=== PATIENT | male | born 1945 | race Caucasian/White ===

== ENCOUNTER → 2016-03-02 | Outpatient (CLI) | payer BC ==
[~2016-03-02] MED LIST: CLB/200 PO; IBUP-1050 PO; IBUP200C9 PO; MULTTAB PO; OXYC1TAB3 PO
== END | disposition home or self-care (01) ==
LOC: C.RDSM 14:35
PROVIDERS: ATTEND Physical Medicine & Rehabilitation Sports Medicine
DX: S42.009A Fracture of unspecified part of unspecified clavicle, initial encounter for closed fracture (principal); X58.XXXA Exposure to other specified factors, initial encounter

== ENCOUNTER 2023-09-02 13:11 | Inpatient (IN) ==
--- NOTE | 2023-09-02 13:45 | ED Triage Note ---
Date of Service September 02, 2023 Provider in Triage Author: Trung Arzate. History of Present Illness This patient was briefly evaluated while in triage. An abbreviated physical exam was performed. This patient is a 78-year-old Male who presents to the ED for evaluation of Right upper chest pain and right upper back pain. Diagnosed with R sided PE after traveling back from [place]. Was not admitted in [place] and was placed on eliquis. Thought he had a fever last night. took tylenol and woke up in a sweat. cough is getting worse, possibly colored now. Pain in chest with cough. Physical Exam CONSTITUTIONAL: appears in pain when coughing or deep inspiration SKIN: pink, warm, dry CARDIAC: regular rate and rhythm RESPIRATORY: muffles lung sounds on R upper region. cough intermittently Initial orders for labs and / or imaging were placed and patient was placed in the waiting area until a bed is available. Please see further documentation for the full ED course.
--- NOTE | 2023-09-02 14:02 | XRay Report ---
XR chest 1V not portable CLINICAL HISTORY: cough, dyspnea, R upper CP, hx PE TECHNIQUE: Single frontal radiograph of the chest was obtained. Comparison: Comparison is made to rib series 11/28/2015 FINDINGS: No lines and tubes are seen. The cardiomediastinal silhouette is normal. The lungs are clear. No evid ence of pleural effusion or pneumothorax. IMPRESSION: No acute chest disease. ACT 112: Negative or not required by law. Electronically signed by: Emory Vivar M.D. 09/02/2023 2:00 PM
[2023-09-02 14:21] LABS: Basophils # (auto) 0.05 K/uL (0.00-0.20); Basophils % (auto) 0.7 %; Eosinophils # (auto) 0.51 K/uL (0.00-0.50); Eosinophils % (auto) 7.6 %; Hematocrit (blood only) 40.5 % (42.0-52.0); Hemoglobin 13.8 g/dl (14.0-18.0); Immature Granulocytes # (auto) 0.05 K/uL (0.01-0.20); Immature Granulocytes % (auto) 0.7 %; Lymphocytes % (auto) 22.4 %; Mean Corpuscular Hemoglobin 30.1 pg (25.0-34.0); Mean Corpuscular Hgb Conc 34.1 g/dL (32.0-36.0); Mean Corpuscular Volume 88.2 fL (80.0-100.0); Mean Platelet Volume 9.4 fL (9.4-12.4); Monocytes # (auto) 0.87 K/uL (0.11-0.59); Neutrophils # (auto) 3.73 K/uL (1.40-6.50); Neutrophils % (auto) 55.6 %; Platelet Count 326 K/uL (130-400); RDW Standard Deviation 38.9 fL (36.4-46.3); Red Blood Count 4.59 M/uL (4.70-6.10); White Blood Count 6.71 K/ul (4.8-10.8)
[2023-09-02 14:43] LABS: Albumin Globulin Ratio 1.2 (0.9-2); BUN Creatinine Ratio 20.7 (10-20); Bilirubin,Total 0.6 mg/dl (0.2-1.0); Calcium 9.3 mg/dl (8.6-10.3); Creatinine Clr Calc Pharmacy 79.4 ml/min; Est GFR (African American) 93.3 ml/min; Est GFR (Non-African American) 80.5 ml/min; Globulin 3.3 gm/dl (2.5-4.0); Potassium 4.7 mmol/L (3.5-5.1); Total Protein 7.3 gm/dl (6.0-8.3)
[2023-09-02 14:47] LABS: Troponin I High Sensitivity 2.8 pg/ml (0-20)
[2023-09-02 15:04] LABS: INR 1.1 (0.9-1.1); Partial Thromboplastin Ratio 1.2; Partial Thromboplastin Time 31 Seconds (21-31); Prothrombin Time 11.6 Seconds (9.0-12.0)
[2023-09-02] MEDS: ONDANSETRON INJ 2 MG/ML 2 ML VIAL IV STA (15:04)
--- NOTE | 2023-09-02 15:04 | Emergency Department Note ---
Impression & Plan Right-sided chest pain, Pulmonary emboli, Pulmonary infarct, Failure of outpatient treatment ED Provider Note NAME: ABDOUL DE OLIVEIRA AGE: 78 SEX: M : 1945 ARRIVES VIA: Walk-In INFORMANT: [Patient] ED PROVIDER(S): [David Osorio MD] CHIEF COMPLAINT: Shortness of breath, shoulder pain HISTORY OF PRESENT ILLNESS: The patient is a 78-year-old male who has felt some right sided chest pain and some difficulty taking a breath since before 21 August. He was in [place]. When he returned, he went to an ER in [place] and they diagnosed him with a pulmonary embolus, he was placed on Eliquis. He was not hospitalized. The patient states that he actually feels worse than he did when he was in [place]. He has more pain in the area of the right chest and right shoulder. He states that it hurts quite a bit when he coughs. It hurts a bit to take a deep breath and he feels he cannot get a full breath. Last night, the patient had what he thought was a fever, he woke up sweating. There has been no trauma to the chest, he has no abdominal pain. He is taking his Eliquis as prescribed. PMHx/PSHx/Social Hx: See Below PHYSICAL EXAM: GENERAL: Patient is in no acute distress. HEENT: No acute trauma, normocephalic atraumatic, mucous membranes moist, no nasal congestion. NECK: No stridor, no adenopathy, no meningismus, trachea is midline. LUNGS: Clear to auscultation bilaterally, no wheeze, no rhonchi, breath sounds equal. HEART: Without murmurs gallops or rubs, regular rate and rhythm. ABDOMEN: Soft, nontender, no peritonitis. EXTREMITIES: No cyanosis, full range of motion of all the joints without pain or difficulty. NEUROLOGIC: Oriented x 3, no acute motor or sensory deficits, no focal weakness. SKIN: No jaundice, no diaphoresis. DIFFERENTIAL DIAGNOSIS: PE, pulmonary infarct, pneumonia, musculoskeletal pain, pleurisy, among others. EMERGENCY DEPARTMENT PROCEDURES: MEDICAL DECISION MAKING: There is no leukocytosis. A very subtle anemia was seen. There is a normal platelet count. No coagulopathy. No renal failure or significant electrolyte abnormality. No concerning liver enzyme elevation. BNP is not elevated making CHF less likely. ECG shows a normal sinus rhythm, no obvious ST elevation. Cardiac enzyme testing x 1 is not consistent with acute cardiac injury. Chest x-ray does not show mediastinal widening, pneumonia or pneumothorax. Chest CT shows multiple right-sided pulmonary emboli with some pulmonary infarcts and potential early pneumonia. On exam, the patient was not hypoxic. He did have right-sided chest pain with any cough or with a deep breath. Patient received IV morphine for pain, IV Zofran for nausea. He was placed on IV heparin drip. The patient presents with worsening right-sided chest pain despite Eliquis. He had been diagnosed with a PE and was treated outpatient. Things appear to be worsening, his CT imaging suggests pulmonary infarcts, multiple PEs and potentially, early infection. Given the circumstances, admission is warranted. I spoke with the patient and case management. The on-call hospitalist was consulted. Prior/Outside records/notes reviewed: None ECG per my interpretation: Indication was chest pain. The ECG shows a normal sinus rhythm with a rate of 83. There is no ST elevation, no PVCs. The QTc is 425. Continuous Cardiac Monitoring per my interpretation: An order was placed for continuous cardiac monitoring. The monitor shows a rate of 77 with normal sinus rhythm. Imaging/x-ray results per my interpretation: Chest x-ray does not show mediastinal widening, pneumonia or pneumothorax. Chronic Medical/Social conditions affecting care: Advanced age. Care/Management discussed with: Case management, the on-call hospitalist. Level of care consideration(s): After review of the information above and other included data: --I believe the patient requires escalation of care to admission Critical Care Note: I have personally spent 42 minutes of critical care time in the direct management of this patient. This includes bedside care, interpretation of diagnostic studies, and testing, discussion with consultants, patient, and family members, and other required patient management activities. This 42 minutes is in excess of all separately billable procedures. DISPOSITION: Admission Past Med/Surg History Problem List (Updated 09/02/23 @ 18:38 by David Osorio MD) Failure of outpatient treatment (Acute) Pulmonary infarct (Acute) Pulmonary emboli (Acute) Right-sided chest pain (Acute) Pulmonary embolism and infarction Right pulmonary embolus Inflammatory polyarthritis Dyslipidemia BPH (benign prostatic hyperplasia) Allergic rhinitis Medical History Basal cell carcinoma of skin Melanoma s/p resection, Keytruda 06/10-09/09 Surgical History (Updated 09/02/23 @ 16:54 by Sherly Cutler PA-C) History of inguinal hernia repair History of cataract surgery History of melanoma excision Family History (Updated 09/02/23 @ 16:54 by Sherly Cutler PA-C) Other Cancer Diabetes Stroke Denies family history of Clotting disorder Social History Smoking Status: Never smoker Preferred Language: Dominican Feels Safe at Home: Yes Allergies Allergies Allergy/AdvReac Type Severity Reaction Status Date / Time No Known Allergies Allergy Unverified 09/02/23 16:29 Home Meds Home Medications Medication Instructions Recorded Confirmed acetaminophen 500 mg tablet 500 mg PO Q6H PRN Pain/Fever 09/02/23 09/02/23 apixaban 5 mg tablet (Eliquis) 5 mg PO BID 09/02/23 09/02/23 celecoxib 200 mg capsule 200 mg PO DAILY 09/02/23 09/02/23 pseudoephedrine-ibuprofen 30 1 tab PO Q4H PRN Sick 09/02/23 09/02/23 mg-200 mg tablet rosuvastatin 10 mg tablet 10 mg PO QAM 09/02/23 09/02/23 tamsulosin 0.4 mg capsule 0.4 mg PO DAILY 09/02/23 09/02/23 Results & Data (ED) Vital Signs Vital Signs - 24 hr 09/02/23 13:35 09/02/23 14:10 09/02/23 14:14 Temperature 36.4 C L Temperature Source Temporal Artery Scan Pulse Rate 85 77 Pulse Rate [Apical] Respiratory Rate 18 Respiratory Effort / Characteristics Non-Labored Respiratory Depth Normal Respiratory Pattern Regular Blood Pressure 116/72 Blood Pressure [Right Arm] Blood Pressure Mean 86 Blood Pressure Mean [Right Arm] Pulse Oximetry 96 96 Oxygen Delivery Method Room Air Room Air Sepsis Recent Fever Within 48 Hours No Sepsis New/Unexplained Change in Mental Status N/A Sepsis Action Taken by Nursing No Action Required 09/02/23 15:10 09/02/23 15:43 Temperature Temperature Source Pulse Rate Pulse Rate [Apical] 70 Respiratory Rate 18 Respiratory Effort / Characteristics Respiratory Depth Respiratory Pattern Blood Pressure Blood Pressure [Right Arm] 129/68 Blood Pressure Mean Blood Pressure Mean [Right Arm] 88 Pulse Oximetry 93 Oxygen Delivery Method Room Air Room Air Sepsis Recent Fever Within 48 Hours Sepsis New/Unexplained Change in Mental Status Sepsis Action Taken by Long-Term Medications Current Medication List: was personally reviewed by me Laboratory Data Attestation: I reviewed the patient's lab results. 09/02/23 14:00 09/02/23 14:00 Lab Results 09/02/23 Range/Units 14:00 WBC 6.71 (4.8-10.8) K/ul RBC 4.59 L (4.70-6.10) M/uL Hgb 13.8 L (14.0-18.0) g/dl Hct 40.5 L (42.0-52.0) % MCV 88.2 (80.0-100.0) fL MCH 30.1 (25.0-34.0) pg MCHC 34.1 (32.0-36.0) g/dL RDW Std Deviation 38.9 (36.4-46.3) fL RDW Coeff of Hardy 12.0 (11.5-14.5) % Plt Count 326 (130-400) K/uL MPV 9.4 (9.4-12.4) fL Immature Gran % (Auto) 0.7 % Neut % (Auto) 55.6 % Lymph % (Auto) 22.4 % [place] % (Auto) 13.0 % Eos % (Auto) 7.6 % Baso % (Auto) 0.7 % Neut # (Auto) 3.73 (1.40-6.50) K/uL Lymph # (Auto) 1.50 (1.20-3.40) K/uL [place] # (Auto) 0.87 H (0.11-0.59) K/uL Eos # (Auto) 0.51 H (0.00-0.50) K/uL Baso # (Auto) 0.05 (0.00-0.20) K/uL Immature Gran # (Auto) 0.05 (0.01-0.20) K/uL PT 11.6 (9.0-12.0) Seconds INR 1.1 (0.9-1.1) APTT 31 (21-31) Seconds PTT Ratio 1.2 Sodium 139 (136-145) mmol/L Potassium 4.7 (3.5-5.1) mmol/L Chloride 103 (98-107) mmol/L Carbon Dioxide 30 (21-32) mmol/L Anion Gap 6 (3-11) BUN 19 (6-23) mg/dl Creatinine 0.92 (0.6-1.4) mg/dl Est Cr Clr Drug Dosing 79.4 ml/min Est GFR ( Amer) 93.3 ml/min Est GFR (Non-Af Amer) 80.5 ml/min BUN/Creatinine Ratio 20.7 H (10-20) Glucose 110 H (70-99(Fasting)) mg/dl Calcium 9.3 (8.6-10.3) mg/dl Total Bilirubin 0.6 (0.2-1.0) mg/dl AST 27 (13-39) U/L ALT 27 (7-52) U/L Alkaline Phosphatase 85 (34-104) U/L Troponin I High Sens 2.8 (0-20) pg/ml B-Natriuretic Peptide 48 (0-100) pg/ml Total Protein 7.3 (6.0-8.3) gm/dl Albumin 4.0 (3.4-5.0) gm/dl Globulin 3.3 (2.5-4.0) gm/dl Albumin/Globulin Ratio 1.2 (0.9-2) Procalcitonin 0.05 (0-0.5) ng/ml Administered Medications Heparin Sodium/Dextrose (Heparin Sodium/Dextrose) 25,000 units in 500 mls @ 30 mls/hr IV .[id number] [facility]; Protocol Stop: 10/02/23 16:29 Last Admin: 09/02/23 17:27 Dose: 1,500 units/hr, 30 mls/hr Documented By: HAO Co-signed By: FERMÍN Discontinued Medications Heparin Sodium/Dextrose (Heparin Iv Adult Wt-Based Standard *No* Initial Bolus Protocol) 1 each IV ONE STA; Protocol Stop: 09/02/23 16:05 Last Admin: 09/02/23 17:28 Dose: 1 each Documented By: HAO Levofloxacin/Dextrose (Levaquin/D5w) 500 mg in 100 mls @ 100 mls/hr IV ONE STA; Protocol Stop: 09/02/23 18:30 Last Infusion: 09/02/23 20:06 Dose: Infused Documented By: Admin: 09/02/23 18:03 Dose: 100 mls/hr Documented By: HAO Ioversol (Optiray 320 125ml) 120 ml IV ONCE ONE Stop: 09/02/23 15:29 Last Admin: 09/02/23 15:29 Dose: 120 ml Documented By: KIKO Morphine Sulfate (Morphine Sulfate 4 Mg/Ml 1 Ml Carp\Vial) 4 mg IV NOW STA Stop: 09/02/23 14:59 Last Admin: 09/02/23 15:05 Dose: 4 mg Documented By: DORINDAB Morphine Sulfate (Morphine Sulfate 4 Mg/Ml 1 Ml Carp\Vial) 4 mg IV NOW STA Stop: 09/02/23 18:15 Last Admin: 09/02/23 18:36 Dose: 4 mg Documented By: HAO Ondansetron HCl (Ondansetron Inj 2 Mg/Ml 2 Ml Vial) 4 mg IV NOW STA Stop: 09/02/23 14:59 Last Admin: 09/02/23 15:04 Dose: 4 mg Documented By: JOHN Imaging Data Radiologist's Impression: Chest CTA 09/02/23 13:37 CT ANGIOGRAPHY OF THE CHEST, PULMONARY EMBOLUS PROTOCOL CLINICAL HISTORY: Recent R PE, worsening R back pain, fever COMPARISON STUDY: Chest CT November 28, 2015. Chest radiograph performed earlier today. TECHNIQUE: Following IV administration of 120 mL of Optiray, helical axial images of the chest were obtained utilizing the pulmonary embolus protocol. Maximal intensity projections and sagittal and coronal reformats were viewed on an independent 3D workstation. IV contrast was administered without complication. Automated exposure control was utilized for the study. A dose lowering technique was utilized adhering to the principles of ALARA. CT DOSE: 831.22 mGy.cm FINDINGS: There are several lobar and segmental right-sided pulmonary emboli. A small right pleural effusion is present. There is no CT evidence for right heart strain. A 2.9 cm subpleural right lower lobe opacity on image 49 of 223 represents a pulmonary infarct. There is also a subpleural 2.3 cm groundglass right apical opacity on image 201. There is mild right infrahilar soft tissue thickening. This is of questionable significance. Several subpleural left lower lobe nodules measure up to 7 mm. These are new since CT of November 28, 2015. There is no thoracic aortic dissection. There is no pericardial effusion. Hypodense hepatic lesions represent cysts. IMPRESSION: 1. Several lobar and segmental right-sided pulmonary emboli. 2.9 cm subpleural right lower lobe opacity consistent with a pulmonary infarct. Small right pleural effusion. 2. Subpleural 2.3 cm right apical groundglass opacity could reflect an additional pulmonary infarct., A focus of pneumonia could appear similar. A follow-up chest CT in 3 months to ensure resolution is recommended. 3. Several indeterminate subcentimeter left lower lobe pulmonary nodules measuring up to 7 mm. These are new since CT of November 28, 2015. These should be assessed on follow-up CT to ensure stability. ACT 112: Positive. There are findings on this exam that require communication between the performing entity and the patient following Patient Test Result Information Act ([place] Act 112) guidelines. Electronically signed by: Corby Philip M.D. 09/02/2023 3:56 PM Chest X-Ray 09/02/23 13:37 XR chest 1V not portable CLINICAL HISTORY: cough, dyspnea, R upper CP, hx PE TECHNIQUE: Single frontal radiograph of the chest was obtained. Comparison: Comparison is made to rib series 11/28/2015 FINDINGS: No lines and tubes are seen. The cardiomediastinal silhouette is normal. The lungs are clear. No evidence of pleural effusion or pneumothorax. IMPRESSION: No acute chest disease. ACT 112: Negative or not required by law. Electronically signed by: Emory Vivar M.D. 09/02/2023 2:00 PM Discharge Plan Visit Data Chief Complaint: Shortness of Breath/Dyspnea Stated Complaint: SOB, BLOOD CLOT IN RT LUNG ED Provider: David Osorio Discharge Problem: Right-sided chest pain, Pulmonary emboli, Pulmonary infarct, Failure of outpatient treatment Patient Disposition: Admitted As Inpatient Condition: Fair Discharge Instructions Interventions: ED Discharge Assessment Last Done: 09/02/23 20:12 Discharge Problem: Pulmonary emboli Qualifiers: Pulmonary embolism type: unspecified Chronicity: acute Acute cor pulmonale presence: unspecified Qualified Code(s): I26.99 - Other pulmonary embolism without acute cor pulmonale
[2023-09-02] MEDS: MoRPHine SULFATE 4 MG/ML 1 ML CARP\\VIAL IV STA ×2 (15:05→18:36)
[2023-09-02] MEDS: OPTIRAY 320 125ml IV ONE (15:29)
--- NOTE | 2023-09-02 15:59 | CT Scan Report ---
CT ANGIOGRAPHY OF THE CHEST, PULMONARY EMBOLUS PROTOCOL CLINICAL HISTORY: Recent R PE, worsening R back pain, fever COMPARISON STUDY: Chest CT November 28, 2015. Chest radiograph performed earlier today. TECHNIQUE: Following IV administration of 120 mL of Optiray, helical axial images of the chest were o btained utilizing the pulmonary embolus protocol. Maximal intensity projections and sagittal and cor onal reformats were viewed on an independent 3D workstation. IV contrast was administered without co mplication. Automated exposure control was utilized for the study. A dose lowering technique was ut ilized adhering to the principles of ALARA. CT DOSE: 831.22 mGy.cm FINDINGS: There are several lobar and segmental right-sided pulmonary emboli. A small right pleural effusion is present. There is no CT evidence for right heart strain. A 2.9 cm subpleural right lower lobe opacity on image 49 of 223 represents a pulmonary infarct. There is also a subpleural 2.3 cm bushra undglass right apical opacity on image 201. There is mild right infrahilar soft tissue thickening. Th is is of questionable significance. Several subpleural left lower lobe nodules measure up to 7 mm. Th chauncey are new since CT of November 28, 2015. There is no thoracic aortic dissection. There is no pericar dial effusion. Hypodense hepatic lesions represent cysts. IMPRESSION: 1. Several lobar and segmental right-sided pulmonary emboli. 2.9 cm subpleural right lower lobe opaci ty consistent with a pulmonary infarct. Small right pleural effusion. 2. Subpleural 2.3 cm right apical groundglass opacity could reflect an additional pulmonary infarct., A focus of pneumonia could appear similar. A follow-up chest CT in 3 months to ensure resolution is recommended. 3. Several indeterminate subcentimeter left lower lobe pulmonary nodules measuring up to 7 mm. These are new since CT of November 28, 2015. These should be assessed on follow-up CT to ensure stability. ACT 112: Positive. There are findings on this exam that require communication between the performing entity and the patient following Patient Test Result Information Act ([place] Act 112) guidelines. Electronically signed by: Corby Philip M.D. 09/02/2023 3:56 PM
--- NOTE | 2023-09-02 16:23 | History & Physical Report ---
Date of Service September 02, 2023 Assessment & Plan (1) Pulmonary embolism and infarction: Plan: This is a 78 y/o male with history of inflammatory polyarthritis, GERD, BPH, malignant melanoma s/p Keytruda, dyslipidemia, and other history as outlined below who presents to the ED with worsening right chest pain in the setting of recently diagnosed PE. He was started on Eliquis when he was diagnosed with right-sided PE on 08/22/23. However, since starting this medication, he has not noted significant improvement but rather is now worsening over the last 2-3 days with increasing pain, cough, and subjective fever. Work-up in the ED reveals progression of clot with new pulmonary infarct. - Admit to PCU - Heparin gtt started in the ED - will continue - Not currently hypoxic but monitor Pulsox closely - Consult pulmonology for additional recommendations - Scheduled for hem/onc f/u in Oct with Dr. Ndiaye due to hx of melanoma but may need hematologic evaluation sooner - Empiric antibiotic coverage for pneumonia with levofloxacin - Urine legionella, BioFire respiratory panel in view of recent travel - Check ECHO to rule out right heart strain - Incentive spirometry, flutter valve (2) Inflammatory polyarthritis: Plan: Chronic, follows with rheumatology (3) Dyslipidemia: Plan: Chronic, stable Continue statin (4) BPH (benign prostatic hyperplasia): Plan: Chronic, stable Continue tamsulosin Plan Pt seen and reviewed with collaborating physician, Dr. Pascual. Plan of care discussed and as outlined above. Code status: Full code DVT Prophylaxis: on heparin gtt Admit to PCU Joseph Cutler PA-C History of Present Illness Chief Complaint: worsening chest pain Primary Care Provider: Keisha Grossman MD This is a 78 y/o male with history of inflammatory polyarthritis, GERD, BPH, malignant melanoma s/p Keytruda, dyslipidemia, and other history as outlined below who presents to the ED with worsening right chest pain in the setting of recently diagnosed PE. Pt recently traveled to [place] for the month of July on vacation. While he was there, he developed right sided chest pain that gradually worsened with associated difficulty with deep breathing. When he returned through [place], he was seen in the ED at [facility] and had a CT t hat showed right sided PE (see CT below) and was discharged on Eliquis. Since starting Eliquis, pt has not noted any significant improvement in the symptoms, but rather over the past two days, the right chest pain has worsened and is radiating to the right scapula. The pain is particularly severe with deep breathing, coughing, or sneezing. Last night, he woke up with a subjective fever, so he took two Tylenol and went back to sleep. This morning, he woke up soaked in sweat. He has also noted a worsening cough that is minimally productive, no significant hemoptysis. Depending on the position he is in, he may wake up gasping for breath. He denies prior history of blood clot. He reports LE duplex in the ED in [place] was negative for clot. From PCP Note 08/30/23: "Part way into vacation, he developed pain in his right side. Progressed to severe pain and difficulty with deep breathing. He flew back to [place] and was seen at [facility] emergency room on 08/22/23. CTA was performed and showed the followin. Right descending pulmonary artery embolus and central segmental branches. 2. Right lower lobe atelectasis and trace right pleural effusion. 3. Multiple left lower lobe pulmonary nodules. These measure 5 and 6 mm. Most significant: Left solid pulmonary nodule measuring 5 mm. Per Fleischner Society Guidelines, no routine follow-up imaging is recommended." Allergies Allergy/AdvReac Type Severity Reaction Status Date / Time No Known Allergies Allergy Unverified 09/02/23 16:29 Home Medications Medication Instructions Recorded Confirmed Type acetaminophen 500 mg tablet 500 mg PO Q6H PRN Pain/Fever 09/02/23 09/02/23 History apixaban 5 mg tablet (Eliquis) 5 mg PO BID 09/02/23 09/02/23 History celecoxib 200 mg capsule 200 mg PO DAILY 09/02/23 09/02/23 History pseudoephedrine-ibuprofen 30 1 tab PO Q4H PRN Sick 09/02/23 09/02/23 History mg-200 mg tablet rosuvastatin 10 mg tablet 10 mg PO QAM 09/02/23 09/02/23 History tamsulosin 0.4 mg capsule 0.4 mg PO DAILY 09/02/23 09/02/23 History Past Med/Surg History Problem List (Updated 09/02/23 @ 16:59 by Sherly Cutler PA-C) Pulmonary embolism and infarction Right pulmonary embolus Inflammatory polyarthritis Dyslipidemia BPH (benign prostatic hyperplasia) Allergic rhinitis Medical History (Updated 09/02/23 @ 16:59 by Sherly Cutler PA-C) Basal cell carcinoma of skin Melanoma s/p resection, Keytruda 06/10-09/09 Surgical History (Updated 09/02/23 @ 16:54 by Sherly Cutler PA-C) History of inguinal hernia repair History of cataract surgery History of melanoma excision Family History (Updated 09/02/23 @ 16:54 by Sherly Cutler PA-C) Other Cancer Diabetes Stroke Denies family history of Clotting disorder Social History Smoking Status: Never smoker Preferred Language: Nauruan Feels Safe at Home: Yes Review of Systems Review of Systems: All systems reviewed & are unremarkable except as noted in Subjective Physical Exam Physical Exam: General: awake, alert, NAD HEENT: no scleral icterus, moist oral mucosa Neck: supple, trachea midline Heart: RRR Lungs: diminished but clear bilaterally Abdomen: soft, NT, +BS Extremities: no pitting edema, distal pulses intact and equal Skin: warm, dry, no jaundice Neurologic: OX3, no confusion or dysarthria, moving all extremities, no focal deficits Results & Data Results & Data Vital Signs (Past 12 Hours) Vital Signs Temp Pulse Pulse Resp BP BP Pulse Ox 09/02/23 15:43 09/02/23 15:10 70 18 129/68 93 09/02/23 14:14 77 09/02/23 14:10 96 09/02/23 13:35 36.4 C L 85 18 116/72 96 O2 Del Method 09/02/23 15:43 Room Air 09/02/23 15:10 Room Air 09/02/23 14:14 09/02/23 14:10 Room Air 09/02/23 13:35 Room Air Laboratory Results Lab Results 09/02/23 Range/Units 14:00 WBC 6.71 (4.8-10.8) K/ul RBC 4.59 L (4.70-6.10) M/uL Hgb 13.8 L (14.0-18.0) g/dl Hct 40.5 L (42.0-52.0) % MCV 88.2 (80.0-100.0) fL MCH 30.1 (25.0-34.0) pg MCHC 34.1 (32.0-36.0) g/dL RDW Std Deviation 38.9 (36.4-46.3) fL RDW Coeff of Hardy 12.0 (11.5-14.5) % Plt Count 326 (130-400) K/uL MPV 9.4 (9.4-12.4) fL Immature Gran % (Auto) 0.7 % Neut % (Auto) 55.6 % Lymph % (Auto) 22.4 % [place] % (Auto) 13.0 % Eos % (Auto) 7.6 % Baso % (Auto) 0.7 % Neut # (Auto) 3.73 (1.40-6.50) K/uL Lymph # (Auto) 1.50 (1.20-3.40) K/uL [place] # (Auto) 0.87 H (0.11-0.59) K/uL Eos # (Auto) 0.51 H (0.00-0.50) K/uL Baso # (Auto) 0.05 (0.00-0.20) K/uL Immature Gran # (Auto) 0.05 (0.01-0.20) K/uL PT 11.6 (9.0-12.0) Seconds INR 1.1 (0.9-1.1) APTT 31 (21-31) Seconds PTT Ratio 1.2 Sodium 139 (136-145) mmol/L Potassium 4.7 (3.5-5.1) mmol/L Chloride 103 (98-107) mmol/L Carbon Dioxide 30 (21-32) mmol/L Anion Gap 6 (3-11) BUN 19 (6-23) mg/dl Creatinine 0.92 (0.6-1.4) mg/dl Est Cr Clr Drug Dosing 79.4 ml/min Est GFR ( Amer) 93.3 ml/min Est GFR (Non-Af Amer) 80.5 ml/min BUN/Creatinine Ratio 20.7 H (10-20) Glucose 110 H (70-99(Fasting)) mg/dl Calcium 9.3 (8.6-10.3) mg/dl Total Bilirubin 0.6 (0.2-1.0) mg/dl AST 27 (13-39) U/L ALT 27 (7-52) U/L Alkaline Phosphatase 85 (34-104) U/L Troponin I High Sens 2.8 (0-20) pg/ml B-Natriuretic Peptide 48 (0-100) pg/ml Total Protein 7.3 (6.0-8.3) gm/dl Albumin 4.0 (3.4-5.0) gm/dl Globulin 3.3 (2.5-4.0) gm/dl Albumin/Globulin Ratio 1.2 (0.9-2) Diagnostic Findings Chest CTA 09/02/23 13:37 CT ANGIOGRAPHY OF THE CHEST, PULMONARY EMBOLUS PROTOCOL CLINICAL HISTORY: Recent R PE, worsening R back pain, fever COMPARISON STUDY: Chest CT November 28, 2015. Chest radiograph performed earlier today. TECHNIQUE: Following IV administration of 120 mL of Optiray, helical axial images of the chest were obtained utilizing the pulmonary embolus protocol. Maximal intensity projections and sagittal and coronal reformats were viewed on an independent 3D workstation. IV contrast was administered without complication. Automated exposure control was utilized for the study. A dose lowering technique was utilized adhering to the principles of ALARA. CT DOSE: 831.22 mGy.cm FINDINGS: There are several lobar and segmental right-sided pulmonary emboli. A small right pleural effusion is present. There is no CT evidence for right heart strain. A 2.9 cm subpleural right lower lobe opacity on image 49 of 223 represents a pulmonary infarct. There is also a subpleural 2.3 cm groundglass right apical opacity on image 201. There is mild right infrahilar soft tissue thickening. This is of questionable significance. Several subpleural left lower lobe nodules measure up to 7 mm. These are new since CT of November 28, 2015. There is no thoracic aortic dissection. There is no pericardial effusion. Hypodense hepatic lesions represent cysts. IMPRESSION: 1. Several lobar and segmental right-sided pulmonary emboli. 2.9 cm subpleural right lower lobe opacity consistent with a pulmonary infarct. Small right pleural effusion. 2. Subpleural 2.3 cm right apical groundglass opacity could reflect an additional pulmonary infarct., A focus of pneumonia could appear similar. A follow-up chest CT in 3 months to ensure resolution is recommended. 3. Several indeterminate subcentimeter left lower lobe pulmonary nodules measuring up to 7 mm. These are new since CT of November 28, 2015. These should be assessed on follow-up CT to ensure stability. ACT 112: Positive. There are findings on this exam that require communication between the performing entity and the patient following Patient Test Result Information Act ([place] Act 112) guidelines. Electronically signed by: Corby Philip M.D. 09/02/2023 3:56 PM Chest X-Ray 09/02/23 13:37 XR chest 1V not portable CLINICAL HISTORY: cough, dyspnea, R upper CP, hx PE TECHNIQUE: Single frontal radiograph of the chest was obtained. Comparison: Comparison is made to rib series 11/28/2015 FINDINGS: No lines and tubes are seen. The cardiomediastinal silhouette is normal. The lungs are clear. No evidence of pleural effusion or pneumothorax. IMPRESSION: No acute chest disease. ACT 112: Negative or not required by law. Electronically signed by: Emory Vivar M.D. 09/02/2023 2:00 PM Medications Administered Discontinued Medications Ioversol (Optiray 320 125ml) 120 ml IV ONCE ONE Stop: 09/02/23 15:29 Last Admin: 09/02/23 15:29 Dose: 120 ml Documented By: KIKO Morphine Sulfate (Morphine Sulfate 4 Mg/Ml 1 Ml Carp\\Vial) 4 mg IV NOW STA Stop: 09/02/23 14:59 Last Admin: 09/02/23 15:05 Dose: 4 mg Documented By: NRB Ondansetron HCl (Ondansetron Inj 2 Mg/Ml 2 Ml Vial) 4 mg IV NOW STA Stop: 09/02/23 14:59 Last Admin: 09/02/23 15:04 Dose: 4 mg Documented By: NRB (4) BPH (benign prostatic hyperplasia) Lower urinary tract symptom presence: unspecified whether lower urinary tract symptoms present Qualified Code(s): N40.0 - Benign prostatic hyperplasia without lower urinary tract symptoms
[2023-09-02] MEDS: HEPARIN SODIUM/DEXTROSE 25,000 UNITS/500 ML BAG IV SCH (17:27)
[2023-09-02] MEDS: Heparin IV Adult Wt-Based Standard *NO* INITIAL Bolus Protocol IV STA (17:28)
[2023-09-02] MEDS: levoFLOXacin/D5W 500 MG/100 ML BAG IV STA (18:03)
[2023-09-02] MEDS ORDERED: MoRPHine SULFATE 2 MG/ML CARP IV PRN (18:14)
[2023-09-02 18:33] LABS: Adenovirus PCR Not Detected (NotDetected); Bordetella parapertussis PCR Not Detected (NotDetected); Bordetella pertussis PCR Not Detected (NotDetected); Chlamydia pneumoniae PCR Not Detected (NotDetected); Coronavirus 229E PCR Not Detected (NotDetected); Coronavirus CoV-2 (COVID19)PCR Not Detected (NotDetected); Coronavirus HKU1 PCR Not Detected (NotDetected); Coronavirus NL63 PCR Not Detected (NotDetected); Coronavirus OC43PCR Not Detected (NotDetected); Human Metapneumovirus PCR Not Detected (NotDetected); Influenza A PCR Not Detected (NotDetected); Influenza B PCR Not Detected (NotDetected); Mycoplasma pneumoniae PCR Not Detected (NotDetected); Parainfluenza Virus 1 PCR Not Detected (NotDetected); Parainfluenza Virus 2 PCR Not Detected (NotDetected); Parainfluenza Virus 3 PCR Not Detected (NotDetected); Parainfluenza Virus 4 PCR DETECTED (NotDetected); Respiratory Syncytial VirusPCR Not Detected (NotDetected); Rhinovirus/Enterovirus PCR Not Detected (NotDetected)
--- OUTSIDE RECORDS SUMMARY | 2023-09-02 22:16 | External Medical Summary | Summary of Care ---
Author Name Unknown Organization [facility] Address [address] [place] [address] Phone [phone] Care Team Providers Care Intern Name Role Phone Keisha Grossman MD Primary Care Provider [phone] Reason for Visit * Reason Comments Emergency Department Follow-Up Clot in r ight lung Encounter Details Date Type Department Care Team (Latest Contact Info) Description 08/30/2023 9:00 AM EDT Office Visit Family Practice [facility] [address] [facility] [address] Keisha Grossman MD [address] [place] [address] Pulmonary embolism on right (HCC)*; Anticoagulated by anticoagulation treatment; Multiple pulmonary nodules; Cutaneous melanoma (HCC); Inflammatory polyarthritis (HCC) Allergies Active Allergy Reactions Criticality Noted Date Comments Environmental 07/07/2007 Kerby pollen documented as of this encounter (statuses as of 08/30/2023) Medications Medication Sig Dispensed Refills Start Date End Date Status MENS MULTIVITAMIN PLUS PO TABS one tablet daily 06/09/2012 Active Famotidine 20 MG Oral Tablet (Pepcid) Take 1 Tab by mouth daily. 90 Tab 3 01/28/2020 Active Additional Information Patient taking differently:20 mg Oral Daily(AM),Indications: as needed, Informant: Patient, Reported on 06/04/2023 Tamsulosin HCl 0.4 MG Oral Capsule (Flomax)Indicatio ns:BPH with obstruction/lower urinary tract symptoms Take 1 Capsule by mouth in the morning. 90 Capsule 3 04/04/2023 Active Vicks Sinex DayQuil/NyQuil Oral Take by mouth. Active Acetaminophen ER 650 MG Oral Tablet Extended Release (Tylenol 8 Hour) Take 1 Tablet by mouth every 8 hours as needed. Active Rosuvastatin Calcium 10 MG Oral Tablet (Crestor)Indicati ons:Dyslipidemia TAKE 1 TABLET BY MOUTH EVERY DAY IN THE MORNING 30 Tablet 5 08/12/2023 Active Eliquis 5 MG Oral Tablet Take 1 Tablet by mouth in the morning and 1 Tablet before bedtime. 08/23/2023 Active oxyCODONE HCl 5 MG Oral Tablet (Oxy IR) Take 1 Tablet by mouth every 6 hours as needed for Pain, Severe. 08/22/2023 Active Diclofenac Sodium 1 % External Gel Apply topically to affected area. Apply to 08/30/19 24 Discontinued predniSONE 5 MG Oral Tablet (Deltasone) Take 1 to 2 tabs daily 180 Tablet 4 01/23/2023 08/30/19 24 Discontinued documented as of this encounter (statuses as of 08/30/2023) Active Problems Problem Noted Date Diagnosed Date Inflammatory polyarthritis 08/30/2023 Gastroesophageal reflux disease without esophagi tis 01/18/2022 Dyslipidemia 12/18/2021 Primary osteoarthritis involving multiple joints 12/18/2021 Hx of actinic keratosis 02/02/2019 BPH with obstruction/lower urinary tract symptom s 02/01/2017 DDD (degenerative disc disease), lumbar 12/30/19 15 Allergic rhinitis 06/04/2007 Other chronic allergic conjunctivitis 06/04/2007 Erectile dysfunction documented as of this encounter (statuses as of 08/30/2023) Resolved Problems Problem Noted Date Diagnosed Date Resolved Date Cutaneous melanoma 03/21/2022 4 Cancer Staging:Pathologic:No Stage Recommended(pT4a, cN0, cM0) - Unsigned History of shingles 01/01/2017 07/04/19 24 Closed fracture of manubrium with routine healing 11/29/2015 03/21/2018 Overview: 12/03 Bilateral hand pain 03/03/2014 09/19/19 19 History of malignant melanoma of skin 01/01/2011 11/29/2015 Overview: Treated--[facility] surgery. 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 documented as of this encounter (statuses as of 08/30/2023) Immunizations Name Administration Dates Next Due COVID-19 mRNA, LNP-s, No Pre serve, 2-Dose Series (Moderna) 04/08/2020,03/12/2020 COVID-19, mRNA, LNP-s, PF, B ooster, 100mcg/0.5mg (Moderna) 09/08/2021 Pneumococcal Conjugate Vacc, 13 Valent (Prevnar) 08/31/2015 Pneumococcal Polysaccharide PPV23 (Pneumovax) 02/01/2017 Season Influenza, Quad, PF, Adjuvanted, 65+ Yrs, IM (FLUAD) 11/26/2019 Seasonal Influenza, PF, 6 M & above, IM , (FluLaval or Fluzone) 03/21/2018,01/01/2017 Seasonal Influenza, Quadriva lent Hd (Fluzone Hd) 10/19/2022,12/18/2021,12/01/2020 Seasonal Influenza, Split, I IV3, With Preserve, Inj 11/08/2008 Seasonal Influenza, Trivalen t, Adjuvanted, 65+ yrs 01/28/2019 TD - Tetanus/Diptheria (ADULT) 02/18/2015 TDAP, Age 7 and older, IM (Adacel) 11/07/2007 Zoster Vaccine Recombinant (Shingrix) 11/26/2019 ,03/23/2019 documented as of this encounter Social History Tobacco Use Types Packs/Day Years Used Date Smoking Tobacco: Former Cigarettes 0.5 5 0 02/18/1963 - 02/19/1968 Smokeless Tobacco: Never Comments:no passive smoke ex posures Alcohol Use Standard Drinks/Week Comments Not Currently 0 (1 standard drink = 0.6 oz pur e alcohol) 1 cocktail occ PHQ-2 Answer Date Recorded PHQ Adult Total Score 1 12/19/2022 Hunger Vital Sign Answer Date Recorded Within the past 12 months, y ou worried that your food would run out before you got the money to buy more. Never true 12/27/19 23 Within the past 12 months, t he food you bought just didn't last and you didn't have money to get more. Never true 12/26/2022 Childcare Answer Date Recorded Do you feel overwhelmed with taking care of a child, family member or friend? No 12/26/2022 Does your family need help f inding childcare? (Household - for ages 0-17 years) Not on file 12/26/2022 Clothing Answer Date Recorded Have you been unable to get clothing when it was really needed? No 12/26/2022 Is your family able to get c lothes or diapers when needed? (Household - for ages 0-17 years) Not on file 12/26/2022 Personal Safety Answer Date Recorded Do you feel unsafe or have concerns for your saf ety? No 12/26/2022 Do you have concerns for you r family's safety? (Household - for ages 0-17 years) Not on file 12/26/2022 Utilities Answer Date Recorded Do you have trouble paying y our heating, water, or electric bill? No 12/26/2022 Is your family able to pay t he heat, water, or electric bill? (Household - for ages 0-17 years) Not on file 12/26/2022 Does your family have access to good internet? (Household - for ages 0-17 years) Not on file 12/26/2022 Employment Status Answer Date Recorded Are you unemployed or without regular income? No 12/26/2022 Does the household have a re gular source of income? (Household - for ages 0-17 years) Not on file 12/26/2022 Social Connections Answer Date Recorded How often do you feel lonely or isolated from th ose around you? Rarely 12/26/2022 Financial Resource Strain Answer Date R ecorded Do you have any trouble payi ng for your medications, or do you think you might in the future? No 12/26/2022 Does your family have troubl e paying for medicine? (Household - for ages 0-17 years) Not on file 12/26/2022 Transportation Needs Answer Date Record ed READ ONLY Do you have troubl e getting a ride to medical visits or work? Never True 12/26/2022 Does your family have a hard time getting a ride to doctors visits? (Household - for ages 0-17 years) Not on file 12/26/2022 Has lack of transportation k ept you from medical appointments, meetings, work, or from getting things needed for daily living? Check all that apply. (Adult - for ages 18 years and over) Not on file 12/26/2022 Do you (or your family) have trouble finding or paying for a ride (transportation)? (Household - for ages 0-17 years) Not on file 12/26/2022 Housing Stability Answer Date Recorded Do you currently live in a s helter or have no steady place to sleep at night? Yes 12/26/2022 READ ONLY Do you think you a re at risk of becoming homeless? No 12/26/2022 Does your family worry about paying for your home or becoming homeless? (Household - for ages 0-17 years) Not on file 1 02/25/2022 Are you homeless or worried that you might be in the future? (Adult - for ages 18 years and over) Not on file Are you (or your family) arnie eless or worried that you might be in the future? (Household - for ages 0-17 years) Not on file Food Insecurity Answer Date Recorded Do you need food for this week? No 12/26/2022 Are you able to get enough f ood for your family? (Household - for ages 0-17 years) Not on file 12/26/2022 Does your family need food t his week? (Household - for ages 0-17 years) Not on file 12/26/2022 Do you always have enough fo od for your family? (Household - for ages 0-17 years) Not on file 12/26/2022 Sex and Gender Information Value Date Recorded Sex Assigned at Male 01/18/2022 4:58 PM EST Gender Identity Male 01/18/2022 4:58 PM EST Sexual Orientation Not on file Job Start Date Occupation Industry Not on file Not on file Not on file Travel History Travel Start Travel End [place] 07/31/2023 08/19/2023 documented as of this encounter Last Filed Vital Signs Vital Sign Reading Time Taken Comments Blood Pressure 110/62 08/30/2023 9:03 AM EDT Pulse 66 08/30/2023 9:03 AM EDT Temperature 36.4 C (97.6 F) 08/30/2023 9:03 AM ED T Respiratory Rate 18 08/30/2023 9:03 AM EDT Oxygen Saturation 96% 08/30/2023 9:03 AM EDT Inhaled Oxygen Concentration - - Weight 92.7 kg (204 lb 6.4 oz) 08/30/2023 9:03 A M EDT Height 180.3 cm (5' 11") 08/30/2023 9:03 AM EDT Body Mass Index 28.51 08/30/2023 9:03 AM EDT documented in this encounter Progress Notes * Keisha Grossman MD - 08/30/2023 9:24 AM EDT Subjective Chief Complaint Patient presents with Emergency Department Follow-Up Clot in right lung HPI: Sander Arias is a 78 year old male. Patient is unaccompanied. The following issues were addressed today: Patient with history of MM s/p Keytruda trial, inflammatory arthritis presents today for ER follow-up. Was recently on vacation in [place]. Part way into vacation, he developed pain in his right side. Progressed to severe pain and difficulty with deep breathing. He flew back to [place] and was seen at [facility] emergency room on 08/22/23. CTA was performed and showed the followin. Right descending pulmonary artery embolus and central segmental branches. 2. Right lower lobe atelectasis and trace right pleural effusion. 3. Multiple left lower lobe pulmonary nodules. These measure 5 and 6 mm. Most significant: Left solid pulmonary nodule measuring 5 mm. Per Fleischner Society Guidelines, no routine follow-up imaging is recommended. He was started on Eliquis. States overall he is feeling better but still some pain with deep breaths and a cough. Patient has history of melanoma of scalp, cheek, shoulder. Has undergone several excisions. Followswith dermatology regularly. He was receiving Keytruda infusions with [facility] in [place] last year for malignant melanoma but stopped due to worsening muscle/joint pain. He follows with rheumatology for diffuse arthritic pain. Recently this has been feeling much better. He is avoiding NSAIDs. Review of Systems: See HPI Objective BP 110/62 | Pulse 66 | Temp 36.4 C (97.6 F) | Resp 18 | Ht 1.803 m (5' 11") | Wt 92.7 kg (204 lb 6.4 oz) | SpO2 96% | BMI 28.51 kg/m | BSA 2.15 m Wt Readings from Last 3 Encounters: 08/30/23 92.7 kg (204 lb 6.4 oz) 07/04/23 95.7 kg (211 lb) 06/11/23 97.1 kg (214 lb) BP Readings from Last 3 Encounters: 08/30/23 110/62 07/04/23 126/72 06/11/23 119/70 General: Well-appearing, no acute distress Cardiovascular: Regular rate and rhythm, no murmur Respiratory: Good respiratory effort, breath sounds equal and clear to auscultation bilaterally Extremities: No edema Neurological: Alert and oriented, no focal deficits noted Psychiatric: Appropriate mood and affect Assessment & Plan 1. Pulmonary embolism on right (HCC) Patient stable and symptoms improving. Unclear whether provoked (?stasis secondary to overseas flight, questionable inflammatory disorder, MM). Discussed minimum continuation of Eliquis for 3-6 months. Encouraged to discuss with Dr. Ndiaye at upcoming hematology/oncology follow-up in October. 2. Anticoagulated by anticoagulation treatment Continue Eliquis. 3. Multiple pulmonary nodules CT results noted. No follow-up imaging recommended. 4. Cutaneous melanoma (HCC) Stable. Following with dermatology. 5. Inflammatory polyarthritis (HCC) Improved. Following with rheumatology. Avoiding NSAIDs with anticoagulant use. Return for follow-up as scheduled or sooner as needed. This note was electronically signed by Keisha Grossman MD documented in this encounter Nursing Notes * Ana M Lua LPN - 08/30/2023 9:03 AM EDT The patient has been properly identified by confirmation of name and date of . Chief Complaint Patient presents with Emergency Department Follow-Up Clot in right lung documented in this encounter Plan of Treatment Upcoming Encounters Date Type Department Care Team (Late st Contact Info) Description 09/16/2023 9:00 AM EDT Office Visit [facility], [address] [place] [address] Nicole Moreno PA-C [address] [place] [id number] 10/18/2023 1:00 PM EDT Office Visit Dermatology [facility] [address] [place] [id number] Ben Mcneill MD [address] [place], [place] [address] 10/24/2023 2:45 PM EDT Office Visit Hematology/Oncology [facility] [address] [place], [place] [id number] Herberth Ndiaye MD [address] [facility] [address] [address] [place], [place] [address] 12/23/2023 9:00 AM EST Nurse Only Ancillary [facility] [address] [place], [place] [address] [place], Nurse Annual Wellness [facility] [address] [facility] [place] [address] 01/06/2024 8:00 AM EST Office Visit Family Practice [facility] [address] [place], [place] [address] Keisha Grossman MD [address] [facility] [place], [place] [address] 01/31/2024 1:00 PM EST Office Visit Dermatology [facility] [address] [place], [place] [address] Ben Mcneill MD [address] [facility] [address] [facility] [address] [place] [address] Scheduled Procedures Name Priority Associated Diagnoses Date/Ti me COLONOSCOPY FLEXIBLE PROXIMA L DIAGNOSTIC Recall History of colonic polyps Health Maintenance Due Date Last Done Comments COVID-19 Vaccine ( season) 2022 09/08/2021, 04/08/2020, 03/12/2020 Influenza Vaccine (FLU shot) (#1) 2023 10/19/2022, 12/18/2021, 12/01/2020, Additional history exists Depression Screening 12/20/2023 12/19/2022 DTaP,Tdap,and Td Vaccines (3 - Td or Tdap) 02/18/2025 02/18/2015, 11/07/2007 Colonoscopy 06/10/2026 06/11/2023, 05/20, 04/20/2019, Additional history exists Pneumococcal Vaccine: 65+ Years Completed 02/01/2017, 08/31/2015 Zoster Vaccines Completed 11/26/2019, 03/23/2019 HPV (Gardasil) Vaccine Aged Out No lo nger eligible based on patient's age to complete this topic Hepatitis B Vaccine Aged Out No longe r eligible based on patient's age to complete this topic MENINGOCOCCAL (MENACTRA/MENVEO) Aged Out No longer eligible based on patient's age to complete this topic documented as of this encounter Medical Devices Implanted Type Area Travel Freight And Passenger Agent Device Identifier Shelf Expiration Date Model / Serial / Lot Lens 13.5 Sn60wf - [id number] Implanted:Qty: 1 on 12/16/2013 at OR [facility] Left: Eye [employer] 01/17/2018 [id number].13 5 / [id number] / Lens 13.5 M160l - [id number] - [id number] Implanted:Qty: 1 on 07/28/2015 by Camacho Murphy MD at OR [facility] Right: Eye [employer] : SURGICAL 04/17/2016 [id number]. [id number] / [id number] / [id number] Clip Quick 2.8mm 230cm - [id number] Implanted:Qty: 4 on 04/20/2019 by Janine oMody MD at ENDOSCOPY [facility] [employer] [id number]. [id number] / / Woundmatrix Fenstr 7x10cm (70 Units) - [id number] - [id number] Implanted:Qty: 1 on 03/14/2022 by Merna Baird MD at OR [facility] [place] Right: Head [employer] [id number] 08/18/2023 [id number] / [id number] / [id number] documented as of this encounter Visit Diagnoses Diagnosis Pulmonary embolism on right (HCC)- Primary Other pulmonary embolism and infarction Anticoagulated by anticoagulation treatment Long-term (current) use of anticoagulants Multiple pulmonary nodules Other nonspecific abnormal finding of lung field Cutaneous melanoma (HCC) Melanoma of skin, site unspecified Inflammatory polyarthritis (HCC) Unspecified inflammatory polyarthropathy documented in this encounter Advance Directives * Full Code (Latest Code Status on File) Date Activated Date Inactivated Comments 07/28/2015 6:53 AM 07/28/2015 1:14 PM This order ref lects the patients wishes and were consensually agreed upon. * Full Code Date Activated Date Inactivated Comments 12/16/2013 2:03 PM 12/16/2013 8:57 PM This order reflects the patients wishes and were consensually agreed upon. Care Teams Intern Relationship Specialty Start Date End Date Keisha Grossman MD [address] [place] [address] PCP - General Family Medicine 01/03/23 documented as of this encounter
--- OUTSIDE RECORDS SUMMARY | 2023-09-02 22:17 | External Medical Summary | Summary of Care ---
Author Name Unknown Organization [facility] Address [address] [place] [address] Phone [phone] Care Team Providers Care Cloud Operations Engineer Name Role Phone Keisha Grossman MD Primary Care Provider [phone] Reason for Visit * Reason Comments Excision Left Upper Back Encounter Details Date Type Department Care Team ([facility] st Contact Info) Description 05/23/2023 2:00 PM EDT Office Visit MOHS Surgery [facility] [address] [place] [address] Kim Schultz MD [address] [place] [id number] Melanoma in situ of back (HCC)* Allergies Active Allergy Reactions Criticality Noted Date Comments Environmental 07/07/2007 [place] pollen documented as of this encounter (statuses as of 05/23/2023) Medications Medication Sig Dispensed Refills Start Date End Date Status MENS MULTIVITAMIN PLUS PO TABS one tablet daily 0 06/09/2012 Active Famotidine 20 MG Oral Tablet (Pepcid) Take 1 Tab by mouth daily. 90 Tab 3 01/28/2020 Active Diclofenac Sodium 1 % External Gel Apply topically to affected area. Apply to 0 Active predniSONE 5 MG Oral Tablet (Deltasone) Take 1 to 2 tabs daily 180 Tablet 4 01/23/2023 Active Rosuvastatin Calcium 10 MG Oral Tablet (Crestor)Indication s:Dyslipidemia Take 1 Tablet by mouth in the morning. 90 Tablet 1 01/29/2023 Active Celecoxib 200 MG Oral Capsule (CeleBREX) Take 1 Capsule by mouth in the morning. For pain. 30 Capsule 5 03/19/2023 Active Additional Information Patient not taking.Reported on 04/18/2023 Tamsulosin HCl 0.4 MG Oral Capsule (Flomax)Indications :BPH with obstruction/lower urinary tract symptoms Take 1 Capsule by mouth in the morning. 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 On Keytruda infusions in [place] Other melanoma History: Location: L preauricular Year: 2009 Depth: Lent[place] Maligna Treatment: Slow Mohs Staging: Stage 0 - [id number] - Melanoma in situ Location: Left vertex scalp Year: 2013 Depth: 0.7mm (at least) Treatment: Mohs ([facility] with Dr David Arias). SLN biopsy (SLN inconclusive, Do not see path report) Staging: Stage IA - [id number] - < 0.8 mm without ulceration DDD (degenerative disc disease), lumbar 12/30/19 15 HX-SKIN MALIGNANCY NEC - BCCs 12/26/2009 Overview: - BCC chin 2007 - BCC L neck 2006 (Hui) - clonal Olivia forehead 2014 - BCC, right upper back 2019 ADVANCE DIRECTIVE INFORMATION 07/07/2007 Overview: No, Advance Directive brochure given to patient at prior appointment. Allergic rhinitis 06/04/2007 Other chronic allergic conjunctivitis 06/04/2007 Osteoarthrosis involving multiple sites but not generalized Overview: Hands ,knees,hips,toes Erectile dysfunction documented as of this encounter (statuses as of 05/23/2023) Resolved Problems Problem Noted Date Diagnosed Date Resolved Date Closed fracture of manubrium with routine healing 11/29/2015 03/21/2018 Overview: 12/03 Bilateral hand pain 03/03/2014 09/19/19 19 History of malignant melanoma of skin 01/01/2011 11/29/2015 Overview: Treated--[facility] surgery. 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 documented as of this encounter (statuses as of 05/23/2023) Immunizations Name Administration Dates Next Due COVID-19 [...] yrs 01/28/2019 TD - Tetanus/Diptheria (ADULT) 02/18/2015 TDAP (age 11 and older)(Adacel) 11/07/2007 Zoster Vaccine Recombinant (Shingrix) 11/26/2019 ,03/23/2019 [...] money to get more. Never true 12/26/2022 Sex and Gender Information Value Date Recorded Sex Assigned at Male 01/18/2022 4:58 PM EST Gender Identity Male 01/18/2022 4:58 PM EST Sexual Orientation Not on file Job Start Date Occupation Industry Not on file Not on file Not on file documented as of this encounter Progress Notes * Kim Schultz MD - 05/23/2023 2:44 PM EDT Sander Arias is a 77 year old male seen for removal of a lesion on the left upper back. Pathology as follows: A. Skin, left upper back, shave: Melanoma in situ, extending to the peripheral biopsy edges. Adjacent / associated seborrheic keratosis. Examination Sander Arias, 77 year old male, is alert, oriented and appears well and in no distress. The following lesion was noted and addressed: 1) Location: left upper back Appearance: 1.5 cm x 1.2 cm pink scar Impression: melanoma in situ, left upper back Recommendation: 1) The lesion was excised (see separate note) Follow-up: as needed Kim Schultz MD [facility] [address] [facility] [id number] PROCEDURE NOTE Referred by: Kim Schultz MD Preoperative diagnosis: melanoma in situ Postoperative diagnosis: Pending Location: left upper back Surgeon(s): Kim Schultz MD Anesthesia: Lidocaine 0.5% with epinephrine 1:200,000 by local infiltration Procedure: Excision of soft tissue lesion and closure of defect with an intermediate layered repair Estimated blood loss: Less than 5cc Complications: none Preoperative size: 1.5 cm x 1.2 cm without margins, 2.5 cm x 2.2 cm with margins Postoperative length of closure: 6 cm Description of procedure: The patient was escorted to the procedure room. Timeout was called. Patient name, medical record number, date and procedure were verified. Verification of positioning,equipment and availability of supplies was executed. Site(s) identified and marked prior to procedure. Patient and staff present were in agreement. The surgical site was examined and excision was planned to take at least 5 mm of normal-appearing skin in all directions. The skin was then locally anesthetized and prepped in the usual fashion. Excision was performed through the full thickness of skin into the subcutaneous tissue. The specimen was submitted in formalin for histologic examination. Meticulous hemostasis was obtained with the electrosurgical device and the defect was closed primarily with a layered repair using deep sutures of 3-0 Vicryl and superficial sutures of 5-0 Vicryl Rapide. A sterile pressure dressing was placed. Postoperative care: The patient was instructed to cleanse the wound daily, followed by the application of sterile ointment and a nonadherent dressing. I urged the patient to call us if any problems or questions should arise postoperatively. Operation performed with curative intent: Yes Original B[place]low thickness of the lesion: Melanoma in situ (MIS) Clinical margin width (measured from the edge of the lesion or the prior excision scar): 0.5 cm Depth of excision: full-thickness skin and subcutaneous tissue to deep fat documented in this encounter Nursing Notes * Riya Brown LPN - 05/23/2023 2:01 PM EDT Chief Complaint Patient presents with Excision Left Upper Back Referral Doctor: Antoine Hypertension History: No Diabetes History: No Thyroid History: No Bleeding Tendency: No Artificial Valve or Joint: No Pacemaker: no Defibrillator: no Hepatitis/HIV Exposure: No Smoking: no Consent signed yes documented in this encounter Plan of Treatment Upcoming Encounters Date Type Department Care Team (Latest Contact Info) Description 06/11/2023 8:30 AM EDT Hospital Encounter ENDO [facility], Endoscopy Room [facility] [address] [place] [phone] María Elena Stafford DO [address] [place] [address] 06/11/2023 8:30 AM EDT - 06/11/2023 9:00 AM EDT Surgery ENDO [facility], Endoscopy Room [facility] [address] [place] [phone] María Elena Stafford DO [address] [place] [phone] COLONOSCOPY FLEXIBLE PROXIMAL DIAGNOSTIC 07/01/2023 2:00 PM EDT Office Visit Dermatology [facility] [place] [address] [place] [phone] Kim Schultz MD [address] [place] [phone] 07/04/2023 7:40 AM EDT Office Visit Family Practice [facility] [place] [address] [place] [address] Keisha Grossman MD [address] [place] [phone] 10/18/2023 1:00 PM EDT Office Visit Dermatology [facility] [place] [address] [place] [address] Ben Mcneill MD [address] [facility] [place] [phone] 10/24/2023 2:45 PM EDT Office Visit Hematology/Oncology [facility] [place] [address] [place] [phone] Herberth Ndiaye MD [address] [place] [address] 12/23/2023 9:00 AM EST Nurse Only Ancillary [facility] [address] [facility] [place] [address] Im, Nurse Annual Wellness [facility] [address] [facility] [place] [address] 01/31/2024 1:00 PM EST Office Visit Dermatology [facility] [place] [address] [facility] [place] [address] Ben Mcneill MD [address] [facility] [place] [address] Pending Results Name Type Priority Associated Diagnoses Date /Time SURGICAL PATHOLOGY Pathology Routine Melanoma in situ of back (HCC) 05/23/2023 3:02 PM EDT Scheduled Procedures Name Priority Associated Diagnoses Date/Ti me COLONOSCOPY FLEXIBLE PROXIMAL DIAGNOSTIC History of colon polyps Screening for colorectal cancer 06/11/2023 8:30 AM EDT Health Maintenance Due Date Last Done Comments COLONOSCOPY-EVERY 3 YRS AGES 18-100 04/19/2022 04/20/2019, 04/20/2019, 02/15/2009 COVID-19 Vaccine (2022- season) 2022 09/08/2021, 04/08/2020, 03/12/2020 Depression Screening 12/20/2023 12/19/2022 DTaP,Tdap,and Td Vaccines (3 - Td or Tdap) 02/18/2025 02/18/2015, 11/07/2007 Pneumococcal Vaccine: 65+ Years Completed 02/01/2017, 08/31/2015 Zoster Vaccines Completed 11/26/2019, 03/23/2019 Influenza Vaccine (FLU shot) Completed 02/2022, 12/18/2021, 12/01/2020, Additional history exists GARDASIL-HPV IMMUNIZATION SERIES Aged Out No longer eligible based on patient's age to complete this topic Hepatitis B Aged Out No longer eligi ble based on patient's age to complete this topic MENINGOCOCCAL (MENACTRA/MENVEO) Aged Out No longer eligible based on patient's age to complete this topic documented as of this encounter Medical Devices Implanted Type Area Sugar Coating Hand Device Identifier Shelf Expiration Date Model / Serial / Lot Lens 13.5 Sn60wf - [id number] Implanted:Qty: 1 on 12/16/2013 at OR [facility] Left: Eye [employer] 01/17/2018 SN60WF.13 5 / [id number] / Lens 13.5 M160l - [id number] - [id number] Implanted:Qty: 1 on 07/28/2015 by Camacho Murphy MD at OR [facility] Right: Eye [employer] : SURGICAL 04/17/2016 [id number]. [id number] / [id number] / [id number] Clip Quick 2.8mm 230cm - [id number] Implanted:Qty: 4 on 04/20/2019 by Janine Moody MD at ENDOSCOPY [facility] [employer] HX-202UR. A / / Woundmatrix Fenstr 7x10cm (70 Units) - [id number] - [id number] Implanted:Qty: 1 on 03/14/2022 by Merna Baird MD at OR [facility] Right: Head [employer] [id number] 08/18/2023 [id number] / [id number] / [id number] documented as of this encounter Visit Diagnoses Diagnosis Melanoma in situ of back (HCC)- Primary Malignant melanoma of skin of trunk, except scrotum History of colon polyps Personal history of colonic polyps Screening for colorectal cancer Special screening for malignant neoplasms, colon documented in this encounter Advance Directives Latest Code Status on File Code Status Date Activated Date Inactivated Comments Full Code 07/28/2015 6:53 AM 07/28/2015 1:14 PM This or bubba reflects the patients wishes and were consensually agreed upon. Code Status History Code Status Date Activated Date Inactivated Comments Full Code 12/16/2013 2:03 PM 12/16/2013 8:57 PM Thi s order reflects the patients wishes and were consensually agreed upon. Care Teams Cloud Operations Engineer Relationship Specialty Start Date End Date Keisha Grossman MD [address] [facility] [place] [address] PCP - General Family Medicine 01/03/23 documented as of this encounter
--- OUTSIDE RECORDS SUMMARY | 2023-09-02 22:17 | External Medical Summary | Summary of Care ---
Author Name Unknown Organization [facility] Address [address] [place] [address] Phone [phone] Care Team Providers Care Hospice Fellow Name Role Phone Keisha Grossman MD Primary Care Provider Reason for Referral * Evaluate & Treat - Unlimited Visits (Within 10 days (routine)) - Pending Review Specialty Diagnoses / Procedures Referred By Contmigel t Referred To Contact Medical Genetics / Hematology Oncology Diagnoses History of malignant melanoma of skin Kim Schultz MD [address] [place] [id number] Referral ID Status Reason Start Date Expiration Date Visits Requested Visits Authorized [id number] Pending Review Specialty Services Required 04/24/2023 999 999 Question Answer Referral Priority Within 10 days (routine) Where should this appointment be scheduled? [facility] Is this referral request related to one of the following genetics sub-specialties? If unsure of category, use Medical Genetics Ask-A-Doc. Cancer Personal history of cancer? Yes Type of cancer and age at diagnosis: Melanoma (first melanoma diagnosed age 64) Family history of cancer? Yes Describe family history of cancer: prostate cancer granfather and uncle (per chart); no family hx of melanoma Has patient OR family member had genetic testing previously? No Comments Patient has hx of 5 melanomas (3 melanoma in situs) Reason for Visit * Reason Comments Follow Up Patient here for a s kin check with hx of MM and NMSC. Recently had MOHS. Says he has a bump on his scalp from a prior surgery. Encounter Details Date Type Department Care Team ([facility] st Contact Info) Description 04/18/2023 4:00 PM EST Office Visit [facility]ermatology [facility] [address] [place] [address] Kim Schultz MD [address] [facility] [place] [address] Skin lesion*; Inflamed seborrheic keratosis [L82.0]; Actinic keratosis; History of malignant melanoma of skin; Hx of nonmelanoma skin cancer; Other skin changes due to chronic exposure to nonionizing radiation Allergies Active Allergy Reactions Criticality Noted Date Comments Environmental 07/07/2007 [place] pollen documented as of this encounter (statuses as of 05/01/2023) Medications Medication Sig Dispensed Refills Start Date [...] as of this encounter (statuses as of 05/01/2023) Active Problems Problem Noted Date Diagnosed Date [...] collected), PET (negative). On Keytruda infusions in [place] Other melanoma History: Location: L preauricular Year: 2009 Depth: Lentigo Maligna Treatment: Slow Mohs Staging: Stage 0 - [id number] - Melanoma in situ Location: Left vertex scalp Year: 2013 Depth: 0.7mm (at least) Treatment: Mohs ([facility] with Dr David Arias). SLN biopsy (SLN inconclusive, Do not see path report) Staging: Stage IA - [id number] - < 0.8 mm without ulceration DDD (degenerative disc disease), lumbar 12/30/19 15 HX-SKIN MALIGNANCY NEC - BCCs 12/26/2009 Overview: - BCC chin 2007 - BCC L neck 2006 (Ez) - clonal Olivia forehead 2014 - BCC, right upper back 2019 ADVANCE DIRECTIVE INFORMATION 07/07/2007 Overview: No, Advance Directive brochure given to patient at prior appointment. Allergic rhinitis 06/04/2007 Other chronic allergic conjunctivitis 06/04/2007 Osteoarthrosis involving multiple sites but not generalized Overview: Hands ,knees,hips,toes Erectile dysfunction documented as of this encounter (statuses as of 05/01/2023) Resolved Problems Problem Noted Date Diagnosed Date Resolved Date Closed fracture of manubrium with routine healing 11/29/2015 03/21/2018 Overview: 12/03 Bilateral hand pain 03/03/2014 09/19/19 19 History of malignant melanoma of skin 01/01/2011 11/29/2015 Overview: [facility] 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 documented as of this encounter (statuses as of 05/01/2023) Immunizations Name Administration Dates Next Due COVID-19 [...] on file documented as of this encounter Patient Instructions * Patient Instructions* Kim Schultz MD - 04/18/2023 4:45 PM EST SUNSCREEN USE AND SUN PROTECTION: 1. The best protection is sun avoidance. Seek shade if you can, especially between 9am to 5pm ([place] hours). 2. Use sunscreen with a Sun Protection Factor (SPF) of 30 or more that protects from Ultraviolet A (UVA) and Ultraviolet B (UVB) wavelength light. This is referred to as broad spectrum sun protection. Unfortunately, even though the protection is broad it is not complete, therefore making sun avoidance the best protection. UVB and UVA have both been implicated in causing skin cancers. Older sunscreens only protected from UVB and sunscreens with added UVA protection should contain Titanium dioxide, Zinc oxide, Mexoryl or Parsol 1789, also known as Avobenzone. 3. Use sun protection daily. Apply 20-30 minutes before going out and reapply every 2 hours. No sunscreen is truly water ''proof'' and it will wash away with sweat, swimming and rubbing. 4. Wear tightly woven, loose fitting (cooler) long sleeved clothing, UV-blocking clothing and sun glasses (eyes need protection as well) and wide-brimmed hatwear (no straw hats with holes because light still gets through). HOW TO CHECK YOUR MOLES: 1. Check moles every month and have a relative/friend check your back if possible. The use of a handheld mirror can help as well. The most common place for melanoma in women are the back and legs, and for men is the back. 2. Look for the ABCD's of melanoma: Asymmetry (strange shape - not round or oval), Borders (notched, scalloped or irregular edges), Color (very black or multi-colored), Diameter (size greater than 5mm or the size greater than a pencil eraser). 3. Changes in old moles and growths of new ones in relation to the ABCD's are the most important factors. 4. Some people have many moles that fit the ABCD criteria. At times the best thing is to look for the ''Ugly Duckling'' mole - the one that stands out the most. 5. If there are any questions on a mole please do not hesitate in calling our office at [phone] to have it evaluated. documented in this encounter Progress Notes * Kim Schultz MD - 04/18/2023 4:17 PM EST SUBJECTIVE: History of Present Illness: Sander Arias is a 77 year old male seen today for follow up skin check. Lesions of concern include a lesion on the scalp and an itchy/irritated lesion on central mid lower back. Colonoscopy UTD Other melanoma History: Location: L preauricular Year: 2009 Depth: Lentigo Maligna Treatment: Slow Mohs Staging: Stage 0 - [id number] - Melanoma in situ Location: Left vertex scalp Year: 2013 Depth: 0.7mm (at least) Treatment: Mohs ([facility] with Dr David Arias). 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 Could not identify sentinel lymph node on the imaging study. Location: L preauricular Year: 2022 Depth: Lentigo Maligna/Melanoma in situ Treatment: Mohs Staging: Stage 0 - [id number] - Melanoma in situ Additional Derm History: - BCC chin 2008 - BCC L neck 2007 (Ez) - clonal Olivia forehead 2015 - BCC, right upper back 2019 - AKs REVIEW OF SYSTEMS: SKIN: No other new or changing moles. HEME/LYMPH: No new or enlarging lumps or bumps. No systemic symptoms MEDICA TIONS: Current Outpatient Medications Medication Sig Dispense Refill MENS MULTIVITAMIN PLUS PO TABS one tablet daily Famotidine 20 MG Oral Tablet (Pepcid) Take 1 Tab by mouth daily. 90 Tab 3 Diclofenac Sodium 1 % External Gel Apply topically to affected area. Apply to predniSONE 5 MG Oral Tablet (Deltasone) Take 1 to 2 tabs daily 180 Tablet 4 Rosuvastatin Calcium 10 MG Oral Tablet (Crestor) Take 1 Tablet by mouth in the morning. 90 Tablet 1 Celecoxib 200 MG Oral Capsule (CeleBREX) Take 1 Capsule by mouth in the morning. For pain. (Patientnot taking: Reported on 04/18/2023) 30 Capsule 5 Tamsulosin HCl 0.4 MG Oral Capsule (Flomax) Take 1 Capsule by mouth in the morning. 90 Capsule 3 No current facility-administered medications for this visit. ALLERG IES: Environmental OBJECTIVE: GEN: Healthy, alert, no distress, appears oriented, pleasant, and cooperative. Lymph Nodes: Lymph nodes in head, neck, supraclavicular, axillary, and inguinal areas show no lymphadenopathy. SKIN: Detailed exam of hair, face including lids and lips, conjunctivae, oral mucosa, neck, back, chest, abdomen, buttocks, right and left upper extremities, right and left lower extremities including the nails and digits completed and are normal except: A. Left upper back: 6 mm brown macule with violaceous/red papule within B. central mid lower back: 6 mm pink/telol keratotic papule C. [place] scaly thin papule at left islam D. Tello/brown keratotic papule on scalp E. There is a well-healed primary sites without clinical evidence of disease (no evidence of local,satellite, or in-transit recurrence). Well healed scar on scalp with retention hyperkeratosis (which was easily removed) ASSESS MENT/PLAN: 1. Lesion A. Left upper back. R/o melanoma. DDx includes collision lesion of angioma and lentigo vsflat seborrheic keratosis vs nevus Shave Biopsy of the lesion noted above to establish and confirm diagnosis. The procedure, risks, benefits, alternatives and expected outcomes were discussed with the patient and consent was obtained.Time out called. Patient identified, procedure verified, site identified and verified. Patient and staff present in agreement. Area prepped with alcohol and anesthetized with 0.5% lidocaine with epinephrine at 1:200,000 concentration. Biopsy of lesion performed. 20% AlCl and bandaging applied. Specimen sent to pathology. Patient instructed in routine post-op care. 2. Lesion B.central mid lower back. Favor irritated seborrheic keratosis Shave of the lesion noted above to remove and confirm diagnosis. The procedure, risks, benefits, alternatives and expected outcomes were discussed with the patient and consent was obtained. Time out called. Patient identified, procedure verified, site identified and verified. Patient and staff present in agreement. Area prepped with alcohol and anesthetized using 0.5% lidocaine with epinephrine at 1:200,000 concentration. Shave of lesion performed. 20% AlCl and bandaging applied. Specimen sent to pathology. Patient instructed in routine post-op care 3. Actinic Keratosis, left islam - A total of 1 lesion(s) were treated with cryotherapy. - The patient was counseled on the premalignant nature of these lesions, and they were treated withcryotherapy today which the patient is agreeable to. The risks, benefits, indications, alternatives, and complications were discussed, and consent was obtained. 4. seborrheic keratosis, scalp - benign, reassurance 5. History of melanoma and nonmelanoma skin cancer/Skin cancer screening - History was obtained regarding new or changing moles. - Full skin check performed. No evidence of recurrence at previously treated sites of melanoma and nonmelanoma skin cancer. - Discussed sunscreen/photoprotection. Patient counseled on self-examination for new or changing moles. Informational handout reviewing sunscreen/photoprotection and self monitoring for melanoma was provided to patient at today's visit. - return in 3 months or sooner for any new or changing lesions of concern. Follow-up: 3 months The patient was encouraged to contact me with any further questions or concerns. Kim Schultz MD 04/18/2023 documented in this encounter Miscellaneous Notes * Result Encounter Note - Kim Schultz MD - 04/23/2023 5:51 PM EST Spoke with patient regarding biopsy results as noted below: A. Skin, left upper back, shave: Melanoma in situ, extending to the peripheral biopsy edges. Adjacent / associated seborrheic keratosis. B. Skin, central mid lower back, shave: Seborrheic keratosis, inflamed A- Explained the malignant nature of this lesion. Recommended excision. B- Explained the benign nature of this lesion and that no further intervention is needed. Kim Schultz MD 04/23/2023 documented in this encounter Plan of Treatment Upcoming Encounters Date Type Department Care Team (Latest Contact Info) Description 05/23/2023 2:00 PM EDT Office Visit MOHS Surgery [facility] [address] [place] [address] Kim Schultz MD [address] [place] [id number] 06/11/2023 8:30 AM EDT Hospital Encounter ENDO [facility], Endoscopy Room [facility] [address] [place] [address] María Elena Stafford, DO [address] [place], [place] [address] 06/11/2023 8:30 AM EDT - 06/11/2023 9:00 AM EDT Surgery ENDO [facility], Endoscopy Room [facility] [address] [place] [id number] María Elena Stafford, DO [address] [place], [place] [address] COLONOSCOPY FLEXIBLE PROXIMAL DIAGNOSTIC 07/01/2023 2:00 PM EDT Office Visit Dermatology [facility] [place] [address] [place] [address] Kim Schultz MD [address] [place] [address] 07/04/2023 7:40 AM EDT Office Visit Family Practice [facility] [place] [address] [place] [address] Keisha Grossman MD [address] [place] [address] 10/18/2023 1:00 PM EDT Office Visit Dermatology [facility] [place] [address] [place] [address] Ben Mcneill MD [address] [place] [place] [address] 10/24/2023 2:45 PM EDT Office Visit Hematology/Oncology [facility] [place] [address] [place] [id number] Herberth Ndiaye MD [address] [facility] [place] [address] 12/23/2023 9:00 AM EST Nurse Only Ancillary [facility] [place] [address] [facility] [place] [address] Im, Nurse Annual Wellness [facility] [address] [facility] [place] [address] 01/31/2024 1:00 PM EST Office Visit Dermatology [facility] [address] [facility] [place] [address] Ben Mcneill MD [address] [facility] [place] [address] Scheduled Procedures Name Priority Associated Diagnoses Date/Ti me COLONOSCOPY FLEXIBLE PROXIMAL DIAGNOSTIC Recall History of colon polyps Screening for colorectal cancer 06/11/2023 8:30 AM EDT Scheduled Referrals Name Type Priority Associated Diagnoses Orde r Schedule GENETICS REFERRAL OP Referral Within 10 days (routine) History of malignant melanoma of skin Ordered: 05/01/2023 Health Maintenance Due Date Last Done Comments [...] this encounter Medical Devices Implanted Type Area Hand Stonecutter Device Identifier Shelf Expiration Date Model / Serial / Lot Lens 13.5 Sn60wf - [id number] Implanted:Qty: 1 on 12/16/2013 at OR [facility] Left: Eye [employer] 01/17/2018 SN60WF.13 5 / [id number] / Lens 13.5 M160l - [id number] - [id number] Implanted:Qty: 1 on 07/28/2015 by Camacho Murphy MD at OR [facility] Right: Eye [employer] : SURGICAL 04/17/2016 BU31H-18. 5 / [id number] / [id number] Clip Quick 2.8mm 230cm - [id number] Implanted:Qty: 4 on 04/20/2019 by Janine Moody MD at [facility] [employer] HX-202UR. A / / Woundmatrix Fenstr 7x10cm (70 Units) - [id number] - [id number] Implanted:Qty: 1 on 03/14/2022 by Merna Baird MD at [facility] Right: Head [employer] [id number] 08/18/2023 [id number] / [id number] / [id number] documented as of this encounter Procedures Procedure Name Priority Date/Time Associated Diagnosis Comments SURGICAL PATHOLOGY Routine 04/18/2023 4: 50 PM EST Skin lesion documented in this encounter Results * SURGICAL PATHOLOGY (04/18/2023 4:50 PM EST) Final Diagnosis A. Skin, left upper back, shave: Melanoma in situ, extending to the peripheral biopsy edges. Adjacent / associated seborrheic keratosis. B. Skin, central mid lower back, shave: Seborrheic keratosis, inflamed. 04/23/2023 12:09 PM EST [facility] Clinical History See Order Comments 04/23/2023 12:09 PM EST [facility] Order Comments A. Left upper back: Favor collision lesion of angioma and lentigo vs flat seborrheic keratosis vs nevus, r/o melanoma. Shave biopsy B.central mid lower back: Favor irritated seborrheic keratosis. Shave 04/23/2023 12:09 PM EST [facility] Gross Description A. Skin. Received in formalin with a container labeled with "Sander Arias", "[id number]", "1945" and " left upper back". Received is a 0.9 x 0.8 cm skin shave. The skin surface has a brown variegated ill-defined macule measuring 0.5 x 0.5 cm extending to less than 0.1 cm of the margin. The underlying tissue is inked. The specimen is trisected and submitted in cassette A1. Gross By: CHRISTINA B. Skin. Received in formalin with a container labeled with "Sander Arias", "[id number]", "1945" and " central mid lower back". Received is a 0.8 x 0.7 cm skin shave. The skin surface has a tello scaly shaggy papule measuring 0.6 x 0.6 cm extending to the margin. The underlying tissue is inked. The specimen is trisected and submitted in cassette B1. Gross By: KB 04/23/2023 12:09 PM EST [facility] Microscopic Description A. Hematoxylin and eosin stained sections of this shave biopsy reveal a junctional proliferation of melanocytes with slight nuclear enlargement and hyperchromasia arranged in solitary units and poorly-nested aggregates along the junction. There are regions with increased density of melanocytes nearing confluence and areas of upward scatter. There is an adjacent region with epidermal acanthosis and pseudohorn cyst formation consistent with an associated seborrheic keratosis. An immunohistochemical stain for SOX10 highlights melanocytes and confirms the above impression. A stain for PRAME highlights the majority of melanocytes and is consistent with the above diagnosis. Melanoma in-situ extends to the peripheral biopsy edges. B. Microscopic examination performed. 04/23/2023 12:09 PM EST [facility] Sign Out Location Pathologist sign out performed at [facility] ([facility] [address] [place] [id number]. 04/23/2023 12:09 PM EST [facility] Photographic images and diagrams represent luo findings in this case; they are not intended to replace a complete review of the final diagnostic report. The following statement applies to Flow Cytometry, Histology, In situ Hybridization Assays and Molecular Genetics. This test was developed and performed at [facility] and its performance characteristics determined by [facility]. It has not been cleared or approved by the U.S. Food and Drug Administration. The FDA has determined that such clearance or approval is not necessary. This test is used for clinical purposes. It should not be regarded as investigational or for research. Special stains, including histochemical stains, and studies using immunologic and ANTIONE methodology (where applicable) are performed with appropriate positive and negative control reactions. 04/23/2023 12:09 PM EST [facility]ORY [facility] Tissue Skin structure / Unknown 04/18/2023 4:50 PM EST 04/18/2023 4:50 PM EST Comment:A. Left upper back: Favor collision lesion of angioma and lentigo vs flat seborrheic keratosis vs nevus, r/o melanoma. Shave biopsy B.central mid lower back: Favor irritated seborrheic keratosis. Shave Specimen from wound (specimen) Skin structure / Unknown 04/18/2023 4:50 PM EST 04/18/2023 4:50 PM EST Comment:A. Left upper back: Favor collision lesion of angioma and lentigo vs flat seborrheic keratosis vs nevus, r/o melanoma. Shave biopsy B.central mid lower back: Favor irritated seborrheic keratosis. Shave Kim Schultz MD LAB PATHOLOGY [facility] [address] [place] [address] documented in this encounter Visit Diagnoses Diagnosis Skin lesion- Primary Unspecified disorder of skin and subcutaneous tissue Inflamed seborrheic keratosis [L82.0] Inflamed seborrheic keratosis Actinic keratosis History of malignant melanoma of skin Personal history of malignant melanoma of skin Hx of nonmelanoma skin cancer Personal history of other malignant neoplasm of skin Other skin changes due to chronic exposure to nonionizing radiation History of colon polyps Personal history of [...] and were consensually agreed upon. Care Teams Hospice Fellow Relationship Specialty Start Date End Date Keisha Grossman MD [address] [facility] [place] [address] PCP - General Family Medicine 01/03/23 documented as of this encounter
--- OUTSIDE RECORDS SUMMARY | 2023-09-02 22:17 | External Medical Summary | Summary of Care ---
Author Name Unknown Organization [facility] Address [address], [place] [address] Phone [phone] Care Team Providers Care Pinmaker Name Role Phone Keisha Grossman MD Primary Care Provider [phone] Reason for Visit * Reason Onset Date Comments Medication Refill 07/15/2023 Encounter Details Date Type Department Care Team ([facility] st Contact Info) Description 07/15/2023 Refill Family Practice [facility] [address] [place] [address] Keisha Grossman MD [address] [place] [address] Dyslipidemia Allergies Active Allergy Reactions Criticality Noted Date Comments Environmental 07/07/2007 [place] pollen documented as of this encounter (statuses as of 07/17/2023) Medications Medication Sig Dispensed Refills Start Date End Date Status MENS MULTIVITAMIN PLUS PO TABS one tablet daily 06/09/2012 Active Famotidine 20 MG Oral Tablet (Pepcid) Take 1 Tab by mouth daily. 90 Tab 3 01/28/2020 Active Additional Information Patient taking differently:20 mg Oral Daily(AM),Indications: as needed, Informant: Patient, Reported on 06/04/2023 Diclofenac Sodium 1 % External Gel Apply topically to affected area. Apply to Active predniSONE 5 MG Oral Tablet (Deltasone) Take 1 to 2 tabs daily 180 Tablet 4 01/23/2023 Active Additional Information Patient taking differently: 10 mg Oral Daily(AM), Take 1 to 2 tabs daily, Reported on 07/04/2023 Tamsulosin HCl 0.4 MG Oral Capsule (Flomax)Indications :BPH with obstruction/lower urinary tract symptoms Take 1 Capsule by mouth in the morning. 90 Capsule 3 04/04/2023 Active Vicks Sinex DayQuil/NyQuil Oral Take by mouth. A ctive Acetaminophen ER 650 MG Oral Tablet Extended Release (Tylenol 8 Hour) Take 1 Tablet by mouth every 8 hours as needed. Active Rosuvastatin Calcium 10 MG Oral Tablet (Crestor)Indication s:Dyslipidemia Take 1 Tablet by mouth in the morning. 30 Tablet 07/05/2023 Active documented as of this encounter (statuses as of 07/17/2023) Active Problems Problem Noted Date Diagnosed Date Gastroesophageal reflux disease without esophagi tis 01/18/2022 Dyslipidemia 12/18/2021 Primary osteoarthritis involving multiple joints 12/18/2021 Hx of actinic keratosis 02/02/2019 BPH with obstruction/lower urinary tract symptom s 02/01/2017 DDD (degenerative disc disease), lumbar 12/30/19 15 Allergic rhinitis 06/04/2007 Other chronic allergic conjunctivitis 06/04/2007 Erectile dysfunction documented as of this encounter (statuses as of 07/17/2023) Resolved Problems Problem Noted Date Diagnosed Date Resolved Date 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 documented as of this encounter (statuses as of 07/17/2023) Immunizations Name Administration Dates Next Due COVID-19 [...] on file documented as of this encounter Miscellaneous Notes * Telephone Encounter - [place] Zuniga [facility] - 07/17/2023 11:02 AM EDT Refused Prescriptions: Disp Refills Rosuvastatin Calcium 10 MG Oral Tablet (Cr*30 Tab*0 Sig: Take 1Tablet by mouth in the morning.Refused By: JAMAICA ZUNIGA for Refusal: Duplicate Reque st * Telephone Encounter - [place] Zuniga [facility] - 07/17/2023 10:49 AM EDT Refused Prescriptions: Disp Refills Rosuvastatin Calcium 10 MG Oral Tablet (Cr*30 Tab*0 Sig: Take 1Tablet by mouth in the morning.Refused By: JAMAICA ZUNIGA for Refusal: Duplicate Reque st documented in this encounter Plan of Treatment Upcoming Encounters Date Type Department Care Team (Late st Contact Info) Description 09/16/2023 9:00 AM EDT Office Visit Interventional Pain Center, [facility] [address] [address] Nicole Moreno PA-C [address] [address] 10/18/2023 1:00 PM EDT Office Visit Dermatology [facility] [address] [facility] [id number] Ben Mcneill MD [address] [facility] [place] [address] 10/24/2023 2:45 PM EDT Office Visit Hematology/Oncology [facility] [place] [address] [facility] [address] [place], [place] [phone] Herberth Ndiaye MD [address] [facility] [address] [place], [place] [address] 12/23/2023 9:00 AM EST Nurse Only Ancillary [facility] [place] [address] [facility] [address] [place], [place] [address] Im, Nurse Annual Wellness [address] [place], [place] [address] 01/06/2024 8:00 AM EST Office Visit Family Practice [facility] [place] [address] [facility] [address] [place], [place] [address] Keisha Grossman MD [address] [facility] [address] [place] [address] 01/31/2024 1:00 PM EST Office Visit Dermatology [facility] [place] [address] [facility] [address] [place], [place] [address] Ben Mcneill MD [address] [facility] [address] [place], [place] [address] Scheduled Procedures Name Priority Associated Diagnoses Date/Ti me COLONOSCOPY FLEXIBLE PROXIMA L DIAGNOSTIC Recall History of colonic polyps Health Maintenance Due Date Last Done Comments COVID-19 Vaccine (2022- season) 2022 09/08/2021, 04/08/2020, [...] this encounter Medical Devices Implanted Type Area Loom Repairer Device Identifier Shelf Expiration Date Model / Serial / Lot Lens 13.5 Sn60wf - [id number] Implanted:Qty: 1 on 12/16/2013 at OR [facility] Left: Eye [employer] 01/17/2018 SN60WF.13 5 / [id number] / Lens 13.5 M160l - [id number] - [id number] Implanted:Qty: 1 on 07/28/2015 by Camacho Murphy MD at OR [facility] Right: Eye [employer] LOMB : SURGICAL 04/17/2016 [id number]-92. 5 / [id number] / [id number] Clip Quick 2.8mm 230cm - [id number] Implanted:Qty: 4 on 04/20/2019 by Janine Moody MD at [facility] [employer] HX-202UR. A / / Woundmatrix Fenstr 7x10cm (70 Units) - [id number] - [id number] Implanted:Qty: 1 on 03/14/2022 by Merna Baird MD [place] [facility] Right: Head [employer] [id number] 08/18/2023 [id number] / [id number] / [id number] documented as of this encounter Visit Diagnoses Diagnosis Dyslipidemia Other and unspecified hyperlipidemia documented in this encounter Advance Directives * [...] and were consensually agreed upon. Care Teams Pinmaker Relationship Specialty Start Date End Date Keisha Grossman MD [address] [facility] [place] [address] PCP - General Family Medicine 01/03/23 documented as of this encounter
--- OUTSIDE RECORDS SUMMARY | 2023-09-02 22:17 | External Medical Summary | Summary of Care ---
Author Name Unknown Organization [facility] Address [address] [place] [address] Phone [phone] Care Team Providers Care Wire Bound Box Machine Helper Name Role Phone Keisha Grossman MD Primary Care Provider [phone] Reason for Visit * Reason Onset Date Comments Medication Refill 06/28/2023 Encounter Details Date Type Department Care Team ([facility] st Contact Info) Description 06/28/2023 Refill Family Practice [facility] [address] [facility] [place] [address] Keisha Grossman MD [address] [place] [address] Dyslipidemia; BPH with obstruction/lower urinary tract symptoms Allergies Active Allergy Reactions Criticality Noted Date Comments Environmental 07/07/2007 [place] pollen documented as of this encounter (statuses as of 07/01/2023) Medications Medication Sig Dispensed Refills Start Date [...] Tablet 4 01/23/2023 Active Additional Information Patient not taking.Reported on 06/04/2023 Celecoxib 200 MG Oral Capsule (CeleBREX) Take 1 Capsule by mouth in the morning. For pain. 30 Capsule 5 03/19/2023 Active Tamsulosin HCl 0.4 MG Oral Capsule (Flomax)Indication s:BPH with obstruction/lower urinary tract symptoms Take 1 Capsule by mouth in the morning. 90 Capsule 3 04/04/2023 Active Rosuvastatin Calcium 10 MG Oral Tablet (Crestor)Indicatio ns:Dyslipidemia Take 1 Tablet by mouth in the morning. 90 Tablet 1 07/01/2023 Active Rosuvastatin Calcium 10 MG Oral Tablet (Crestor)Indicatio ns:Dyslipidemia Take 1 Tablet by mouth in the morning. 90 Tablet 1 01/29/2023 4 Discontinue d(Refill) documented as of this encounter (statuses as of 07/01/2023) Active Problems Problem Noted Date Diagnosed Date [...] collected), PET (negative). On Keytruda infusions in [place] Other melanoma History: Location: L preauricular Year: 2009 Depth: Lentigo Maligna Treatment: Slow Mohs Staging: Stage 0 - [id number] - Melanoma in situ Location: Left vertex scalp Year: 2013 Depth: 0.7mm (at least) Treatment: Mohs ([facility] with Dr David Arias). SLN biopsy (SLN inconclusive, Do not see path report) Staging: Stage IA - [id number] - < 0.8 mm without ulceration DDD [...] as of this encounter (statuses as of 07/01/2023) Resolved Problems Problem Noted Date Diagnosed Date Resolved Date Closed fracture of manubrium with routine healing 11/29/2015 03/21/2018 Overview: 12/03 Bilateral hand pain 03/03/2014 09/19/19 History of malignant melanoma of skin 01/01/2011 11/29/2015 Overview: Treated--[facility] surgery. 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 documented as of this encounter (statuses as of 07/01/2023) Immunizations Name Administration Dates Next Due COVID-19 [...] encounter Miscellaneous Notes * Telephone Encounter - Lito Stanley, [facility] - 07/01/2023 9:38 AM EDTSigned Prescriptions: Disp Refills Rosuvastatin Calcium 10 MG Oral Tablet (Cr*90 Tab*1 Sig: Take 1 Tablet by mouth in the morning.Authorizing Provider: Jesus Manuel GROSSMAN User: LITO STANLEYRefused Prescriptions: Disp Refills Tamsulosin HCl 0.4 MG Oral Capsule (Flomax)90 Cap*3 Sig: Take1 Capsule by mouth in the morning.Refused By: LITO STANLEY for Ref usal: Too soon documented in this encounter Plan of Treatment Upcoming Encounters Date Type Department Care Team (Late st Contact Info) Description 07/04/2023 7:40 AM EDT Office Visit Family Practice [facility] [address] [facility] [address] [facility] [address] [place], [place] [address] Keisha Grossman MD [address] [place], [place] [address] 10/18/2023 1:00 PM EDT Office Visit Dermatology [facility] [address] [place], [place] [address] Ben Mcneill MD [address] [facility] [address] [facility] [address] [place], [place] [address] 10/24/2023 2:45 PM EDT Office Visit Hematology/Oncology [facility] [address] [facility] [place] [phone] Herberth Ndiaye MD [address] [facility] [address] [facility] [address] [place], [place] [address] 12/23/2023 9:00 AM EST Nurse Only Ancillary [facility] [address] [facility] [address] [facility] [address] [place], [place] [address] Im, Nurse Annual Wellness [place] [address] [place], [place] [address] 01/31/2024 1:00 PM EST Office Visit Dermatology [facility] [address] [place] [address] Ben Mcneill MD [address] [facility] [address] [facility] [address] [place], [place] [address] Scheduled Procedures Name Priority Associated Diagnoses Date/Ti me COLONOSCOPY FLEXIBLE PROXIMA L DIAGNOSTIC Recall History of colonic polyps Health Maintenance Due Date Last Done Comments COVID-19 Vaccine ( season) 2022 09/08/2021, 04/08/2020, 03/12/2020 Depression Screening [...] this encounter Medical Devices Implanted Type Area Box Maker Device Identifier Shelf Expiration Date Model / Serial / Lot Lens 13.5 Sn60wf - [id number] Implanted:Qty: 1 on 12/16/2013 at OR [facility] Left: Eye [employer] 01/17/2018 SN60WF.13 5 / [id number] / Lens 13.5 M160l - [id number] - [id number] Implanted:Qty: 1 on 07/28/2015 by Camacho Murphy MD at OR [facility] Right: Eye BAUSCH [employer] LOMB : SURGICAL 04/17/2016 CM62Y-53. 5 / [id number] / [id number] Clip Quick 2.8mm 230cm - [id number] Implanted:Qty: 4 on 04/20/2019 by Janine Moody MD at ENDOSCOPY [facility] [employer] HX-202UR. A / / Woundmatrix Fenstr 7x10cm (70 Units) - [id number] - [id number] Implanted:Qty: 1 on 03/14/2022 by Merna Baird MD at [place] [facility] Right: Head [employer] [id number] 08/18/2023 [id number] / [id number] / [id number] documented as of this encounter Visit Diagnoses Diagnosis Dyslipidemia Other and unspecified hyperlipidemia BPH with obstruction/lower urinary tract symptoms Hypertrophy of prostate with urinary obstruction and other lower urinary tract symptoms (LUTS) documented in this encounter Advance Directives Latest [...] and were consensually agreed upon. Care Teams Wire Bound Box Machine Helper Relationship Specialty Start Date End Date Keisha Grossman MD [address] [place] [address] PCP - General Family Medicine 01/03/23 documented as of this encounter
--- OUTSIDE RECORDS SUMMARY | 2023-09-02 22:17 | External Medical Summary | Summary of Care ---
Author Name Unknown Organization [facility] Address [address] [place] [address] Phone [phone] Care Team Providers Care Tank Car Reconditioner Name Role Phone Keisha Grossman MD Primary Care Provider [phone] Reason for Visit * Reason Comments eRx-Medication Refill Encounter Details Date Type Department Care Team ([facility] st Contact Info) Description 08/10/2023 Refill Family Practice [facility] [address] [place] [address] Keisha Grossman MD [address] [place] [address] Dyslipidemia Allergies Active Allergy Reactions Criticality Noted Date Comments Environmental 07/07/2007 [place] pollen documented as of this encounter (statuses as of 08/12/2023) Medications Medication Sig Dispensed Refills Start Date [...] 07/04/2023 Tamsulosin HCl 0.4 MG Oral Capsule (Flomax)Indicatio [...] THE MORNING 30 Tablet 5 08/12/2023 Active Rosuvastatin Calcium 10 MG Oral Tablet (Crestor)Indicati ons:Dyslipidemia Take 1 Tablet by mouth in the morning. 30 Tablet 07/05/2023 08/12/19 24 Discontinued documented as of this encounter (statuses as of 08/12/2023) Active Problems Problem Noted Date Diagnosed Date Gastroesophageal reflux disease without esophagi tis 01/18/2022 Dyslipidemia 12/18/2021 Primary osteoarthritis involving multiple joints 12/18/2021 Hx of actinic keratosis 02/02/2019 BPH with obstruction/lower urinary tract symptom s 02/01/2017 DDD (degenerative disc disease), lumbar 12/30/19 15 Allergic rhinitis 06/04/2007 Other chronic allergic conjunctivitis 06/04/2007 Erectile dysfunction documented as of this encounter (statuses as of 08/12/2023) Resolved Problems Problem Noted Date Diagnosed Date Resolved Date 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 documented as of this encounter (statuses as of 08/12/2023) Immunizations Name Administration Dates Next Due COVID-19 [...] No 12/26/2022 Does the household have a [facility] hospitall[facility] source of income? (Household - for ages [...] encounter Miscellaneous Notes * [facility] 5:32 AM EDTSigned Prescriptions: Disp Refills Rosuvastatin Calcium 10 MG Oral Tablet (Cr*30 Tab*5 Sig: TAKE 1 TABLET BY MOUTH EVERY DAY IN THE MORNINGAuthorizing Provider: Jesus Manuel GROSSMAN User: FRANCISCA HENDRICKS documented in this encounter Plan of Treatment Upcoming Encounters Date Type Department Care Team (Late st Contact Info) Description 09/16/2023 9:00 AM EDT Office Visit Interventional Pain Center, [facility] [address] [place] [address] Nicole Moreno PA-C [address] [place] [address] 10/18/2023 1:00 PM EDT Office Visit Dermatology [facility] [address] [place] [address] Ben Mcneill MD [address] [place] [address] 10/24/2023 2:45 PM EDT Office Visit Hematology/Oncology [facility] [place] [address] [place], [place] [phone] Herberth Ndiaye MD [address] [place] [address] 12/23/2023 9:00 AM EST Nurse Only Ancillary [facility] [address] [place] [address] Im, Nurse Annual Wellness [facility] [address] [place], [place] [address] 01/06/2024 8:00 AM EST Office Visit Family Practice [facility] [place] [address] [place], [place] [address] Keisha Grossman MD [address] [place], [place] [address] 01/31/2024 1:00 PM EST Office Visit Dermatology [facility] [place] [address] [place], [place] [address] Ben Mcneill MD 200 [facility] [place] [address] Scheduled Procedures Name Priority Associated Diagnoses Date/Ti [...] this encounter Medical Devices Implanted Type Area Hogshead Salvage Device Identifier Shelf Expiration Date Model / Serial / Lot Lens 13.5 Sn60wf - [id number] Implanted:Qty: 1 on 12/16/2013 at OR [facility] Left: Eye [employer] 01/17/2018 SN60WF.13 5 / [id number] / Lens 13.5 M160l - [id number] - [id number] Implanted:Qty: 1 on 07/28/2015 by Camacho Murphy MD at [facility] Right: Eye [employer] LOMB : SURGICAL 04/17/2016 UI22N-02. 5 / [id number] / [id number] Clip Quick 2.8mm 230cm - [id number] Implanted:Qty: 4 on 04/20/2019 by Janine Moody MD at ENDOSCOPY [facility] [employer] HX-202UR. A / / Woundmatrix Fenstr 7x10cm (70 Units) - [id number] - [id number] Implanted:Qty: 1 on 03/14/2022 by Merna Baird MD at OR [facility] Right: Head [employer] [id number] 08/18/2023 [id number] / [id number] / [id number] documented as of this encounter Visit Diagnoses [...] and were consensually agreed upon. Care Teams Tank Car Reconditioner Relationship Specialty Start Date End Date Keisha Grossman MD [address] [place] [address] PCP - General Family Medicine 01/03/23 documented as of this encounter
--- OUTSIDE RECORDS SUMMARY | 2023-09-02 22:17 | External Medical Summary | Summary of Care ---
Author Name Unknown Organization [facility] Address [address] [place] [address] Phone [phone] Care Team Providers Care Food Stylist Name Role Phone Keisha Grossman MD Primary Care Provider [phone] Reason for Visit * Reason Comments Excision Left Upper Back Encounter Details Date Type Department Care Team ([facility] st Contact Info) Description 05/23/2023 2:00 PM EDT Office Visit MOHS Surgery [facility] [address] [place] [address] Kim Schultz MD [address] [place] [phone] Melanoma in situ of back (HCC)* Allergies Active Allergy Reactions Criticality Noted Date Comments Environmental 07/07/2007 [place] pollen documented as of this encounter (statuses as of 05/24/2023) Medications Medication Sig Dispensed Refills Start Date [...] as of this encounter (statuses as of 05/24/2023) Active Problems Problem Noted Date Diagnosed Date [...] collected), PET (negative). On Keytruda infusions in [place] Other melanoma History: Location: L preauricular Year: 2009 Depth: Lentigo Maligna Treatment: Slow Mohs Staging: Stage 0 - [id number] - Melanoma in situ Location: Left vertex scalp Year: 2013 Depth: 0.7mm (at least) Treatment: Mohs ([facility] with Dr David Arias). SLN biopsy (SLN inconclusive, Do not see path report) Staging: Stage IA - O8qV3P4 - < 0.8 mm without ulceration DDD [...] as of this encounter (statuses as of 05/24/2023) Resolved Problems Problem Noted Date Diagnosed Date Resolved Date Closed fracture of manubrium with routine healing 11/29/2015 03/21/2018 Overview: 12/03 Bilateral hand pain 03/03/2014 09/19/19 19 History of malignant melanoma of skin 01/01/2011 11/29/2015 Overview: Treated--[facility] surgery. 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 documented as of this encounter (statuses as of 05/24/2023) Immunizations Name Administration Dates Next Due COVID-19 [...] as needed Kim Schultz MD MOHS Surgery [facility] [address] [facility] [address] PROCEDURE NOTE Referred by: Kim Schultz MD [...] Consent signed yes documented in this encounter Miscellaneous Notes * Addendum Note - Marnie Sunshine TECH - 05/24/2023 1:50 PM EDTAddended by: MARNIE SUNSHINE on: 05/24/2023 01:50 PM Modules accepted: Orders documented in this encounter Plan of Treatment Upcoming Encounters Date Type Department Care Team (Latest Contact Info) Description 06/11/2023 8:30 AM EDT Hospital Encounter ENDO OSSC, Endoscopy Room [facility] [address] [place] [address] María Elena Stafford DO [address] [place] [address] 06/11/2023 8:30 AM EDT - 06/11/2023 9:00 AM EDT Surgery ENDO OSSC, Endoscopy Room [facility] [address] [place] [address] María Elena Stafford DO [address] [place] [address] COLONOSCOPY FLEXIBLE PROXIMAL DIAGNOSTIC 07/01/2023 2:00 PM EDT Office Visit Dermatology [facility] [place] [address] [place] [address] Kim Schultz MD [address] [place] [address] 07/04/2023 7:40 AM EDT Office Visit Family Practice [facility] Monisha [place] [address] [place] [address] Keisha Grossman MD [address] [place] [address] [place] [address] 10/18/2023 1:00 PM EDT Office Visit Dermatology [facility] [place] [address] [place] [place] [address] Ben Mcneill MD [address] [facility] [place] [address] 10/24/2023 2:45 PM EDT Office Visit Hematology/Oncology [facility] [address] [place] [phone] Herberth Ndiaye MD [address] [place], [place] [address] 12/23/2023 9:00 AM EST Nurse Only Ancillary [address] [place] [address] Im, Nurse Annual Wellness [address] [place] [address] 01/31/2024 1:00 PM EST Office Visit Dermatology [facility] [address] [place], [place] [address] Ben Mcneill MD [address] [place] [address] [place] [address] Pending Results Name Type Priority Associated Diagnoses [...] 18-100 04/19/2022 04/20/2019, 04/20/2019, 02/15/2009 COVID-19 Vaccine ( - 2022-24 season) 2022 09/08/2021, 04/08/2020, 03/12/2020 Depression Screening [...] this encounter Medical Devices Implanted Type Area Book Sewing Machine Operator Device Identifier Shelf Expiration Date Model / Serial / Lot Lens 13.5 Sn60wf - [id number] Implanted:Qty: 1 on 12/16/2013 at OR [facility] Left: Eye [employer] 01/17/2018 SN60WF.13 5 / [id number] / Lens 13.5 M160l - [id number] - [id number] Implanted:Qty: 1 on 07/28/2015 by Camacho Murphy MD at OR [facility] Right: Eye [employer] LOMB : SURGICAL 04/17/2016 GS12Z-13. 5 / [id number] / [id number] Clip Quick 2.8mm 230cm - [id number] Implanted:Qty: 4 on 04/20/2019 by Janine Moody MD at ENDOSCOPY [facility] [employer] HX-202UR. A / / Woundmatrix Fenstr 7x10cm (70 Units) - [id number] - [id number] Implanted:Qty: 1 on 03/14/2022 by Merna Baird MD at [place] [facility] Right: Head [employer] [id number] 08/18/2023 [id number] / [id number] / [id number] documented as of this encounter Visit Diagnoses [...] and were consensually agreed upon. Care Teams Food Stylist Relationship Specialty Start Date End Date Keisha Grossman MD [address] [place] [address] PCP - General Family Medicine 01/03/23 documented as of this encounter
--- OUTSIDE RECORDS SUMMARY | 2023-09-02 22:17 | External Medical Summary | Summary of Care ---
Author Name Unknown Organization [facility] Address [address] [place] [address] Phone [phone] Care Team Providers Care Enamel Burner Name Role Phone Keisha Grossman MD Primary Care Provider [phone] Reason for Visit * Reason Onset Date Comments Test Results 05/29/2023 Encounter Details Date Type Department Care Team ([facility] st Contact Info) Description 05/29/2023 Telephone MOHS Surgery [facility] [address] [place] [address] Kim Schultz MD [address] [place] [address] Test Results Allergies Active Allergy Reactions Criticality Noted Date Comments Environmental 07/07/2007 [place] pollen documented as of this encounter (statuses as of 08/28/2023) Medications Medication Sig Dispensed Refills Start Date [...] as of this encounter (statuses as of 08/28/2023) Active Problems Problem Noted Date Diagnosed Date Gastroesophageal reflux disease without esophagi tis 01/18/2022 Dyslipidemia 12/18/2021 Primary osteoarthritis involving multiple joints 12/18/2021 Hx of actinic keratosis 02/02/2019 BPH with obstruction/lower urinary tract symptom s 02/01/2017 DDD (degenerative disc disease), lumbar 12/30/19 15 Allergic rhinitis 06/04/2007 Other chronic allergic conjunctivitis 06/04/2007 Erectile dysfunction documented as of this encounter (statuses as of 08/28/2023) Resolved Problems Problem Noted Date Diagnosed Date Resolved Date 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 documented as of this encounter (statuses as of 08/28/2023) Immunizations Name Administration Dates Next Due COVID-19 [...] encounter Miscellaneous Notes * Telephone Encounter - Rosy Davidson, CESAR - 05/29/2023 12:01 PM EDT Called pt and relayed below results. Pt states he's doing well, but has a little bump at one end ofthe incision that is not painful, but itchy. I asked pt to send a photo to us as we worry about hematomas, but pt states he's traveling until Saturday and will send us a photo then; states he's not tooconcerned about it. ----- Message from Kim Schultz MD sent at 05/28/2023 12:45 PM EDT ----- Please let patient know that margins are clear and make sure he doesn't have any questions regarding the wound/wound care. A. 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 There is no evidence of invasive malignant melanoma. The margin is clear. Prior procedure site changes are encompassed by this excision. documented in this encounter Plan of Treatment Upcoming Encounters Date Type Department Care Team (Late st Contact Info) Description 08/30/2023 9:00 AM EDT Office Visit [facility] [address] [place] [address] Keisha Grossman MD [address] [place] [address] 09/16/2023 9:00 AM EDT Office Visit Inter[facility], [facility] [address] [facility] [place] [address] Nicole Moreno PA-C [address] [facility] [place] [address] 10/18/2023 1:00 PM EDT Office Visit Dermatology [facility] [address] [place] [address] Ben Mcneill MD [address] [place] [address] 10/24/2023 2:45 PM EDT Office Visit Hematology/Oncology [facility] [address] [place] [phone] Herberth Ndiaye MD [address] [place] [address] 12/23/2023 9:00 AM EST Nurse Only Ancillary [facility] [address] [place] [address] Monisha, Nurse Annual Wellness [facility] [address] [place] [address] 01/06/2024 8:00 AM EST Office Visit [facility] [address] [place] [address] Keisha Grossman MD [address] [place] [address] 01/31/2024 1:00 PM EST Office Visit Dermatology [place] 200 [facility] [place] [address] Ben Mcneill MD 200 [facility] [place] [address] Scheduled Procedures Name Priority Associated Diagnoses Date/Ti [...] this encounter Medical Devices Implanted Type Area Stranner Device Identifier Shelf Expiration Date Model / Serial / Lot Lens 13.5 Sn60wf - [id number] Implanted:Qty: 1 on 12/16/2013 at OR [facility] Left: Eye [employer] 01/17/2018 SN60WF.13 5 / [id number] / Lens 13.5 M160l - [id number] - [id number] Implanted:Qty: 1 on 07/28/2015 by Camacho Murphy MD at OR [facility] Right: Eye BAUSCH [employer] LOMB : SURGICAL 04/17/2016 YF13H-54. 5 / [id number] / [id number] Clip Quick 2.8mm 230cm - [id number] Implanted:Qty: 4 on 04/20/2019 by Janine Moody MD at [facility] [employer] HX-202UR. A / / Woundmatrix Fenstr 7x10cm (70 Units) - [id number] - [id number] Implanted:Qty: 1 on 03/14/2022 by Merna Baird MD at OR [facility] Right: Head [employer] [id number] 08/18/2023 [id number] / [id number] / [id number] documented as of this encounter Advance Directives * Full Code (Latest Code Status on File) Date Activated Date Inactivated Comments 07/28/2015 6:53 AM 07/28/2015 1:14 PM This order ref lects the patients wishes and were consensually agreed upon. * Full Code Date Activated Date Inactivated Comments 12/16/2013 2:03 PM 12/16/2013 8:57 PM This order reflects the patients wishes and were consensually agreed upon. Care Teams Enamel Burner Relationship Specialty Start Date End Date Keisha Grossman MD [address] [place] [address] PCP - General Family Medicine 01/03/23 documented as of this encounter
--- OUTSIDE RECORDS SUMMARY | 2023-09-02 22:17 | External Medical Summary | Summary of Care ---
Author Name Unknown Organization [facility] Address [address] [place] [address] Phone [phone] Care Team Providers Care Item Processing Clerk Name Role Phone Keisha Grossman MD Primary Care Provider [phone] Reason for Visit * Reason Onset Date Comments Genetic Counseling 04/26/2023 Referral Encounter Details Date Type Department Care Team ([facility] Contact Info) Description 04/26/2023 Telephone Genetics [facility], [facility] [address] [place] [address] María Elena Rinaldi CHRA Genetic Counseling (Referral) Allergies Active Allergy Reactions Criticality Noted Date Comments Environmental 07/07/2007 [place] pollen documented as of this encounter (statuses as of 04/26/2023) Medications Medication Sig Dispensed Refills Start Date [...] as of this encounter (statuses as of 04/26/2023) Active Problems Problem Noted Date Diagnosed Date [...] collected), PET (negative). On Keytruda infusions in [place] Other melanoma History: Location: L preauricular Year: 2009 Depth: Lentigo Maligna Treatment: Slow Mohs Staging: Stage 0 - [id number] - Melanoma in situ Location: Left vertex scalp Year: 2013 Depth: 0.7mm (at least) Treatment: Mohs ([facility] with Dr David Arias). SLN biopsy (SLN inconclusive, Do not see path report) Staging: Stage IA - N0gU3I4 - < 0.8 mm without ulceration DDD [...] as of this encounter (statuses as of 04/26/2023) Resolved Problems Problem Noted Date Diagnosed Date Resolved Date Closed fracture of manubrium with routine healing 11/29/2015 03/21/2018 Overview: 12/03 Bilateral hand pain 03/03/2014 09/19/19 19 History of malignant melanoma of skin 01/01/2011 11/29/2015 Overview: Treated--[facility] surgery. 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 documented as of this encounter (statuses as of 04/26/2023) Immunizations Name Administration Dates Next Due COVID-19 [...] on file documented as of this encounter Plan of Treatment Upcoming Encounters Date Type Department Care Team (Latest Contact Info) Description 05/23/2023 2:00 PM EDT Office Visit [facility] [address] Kim Schultz MD [address] [place] [address] 06/11/2023 8:30 AM EDT Hospital Encounter ENDO OSSC, Endoscopy Room [facility] [address] [place] [address] María Elena Stafford DO [address] [place] [address] 06/11/2023 8:30 AM EDT - 06/11/2023 9:00 AM EDT Surgery ENDO OSSC, Endoscopy Room [facility] [address] [place] [phone] María Elena Stafford DO [address] [place] [address] COLONOSCOPY FLEXIBLE PROXIMAL DIAGNOSTIC 07/01/2023 2:00 PM EDT Office Visit Dermatology [facility] [address] [place] [address] Kim Schultz MD [address] [place] [address] 07/04/2023 7:40 AM EDT Office Visit Family Practice [facility] [address] [place], [place] [address] Keisha Grossman MD [address] [place] [address] 10/18/2023 1:00 PM EDT Office Visit Dermatology [facility] [address] [place], [place] [address] Ben Mcneill MD [address] [place], [place] [address] 10/24/2023 2:45 PM EDT Office Visit Hematology/Oncology [facility] [address] [place], [place] [phone] Herberth Ndiaye MD [address] [place] [address] 12/23/2023 9:00 AM EST Nurse Only Ancillary [facility] [address] [place], [place] [address] Im, Nurse Annual Wellness [facility] [address] [place] [address] 01/31/2024 1:00 PM EST Office Visit Dermatology [facility] [address] [place] [address] Ben Mcneill MD [address] [place] [address] Scheduled Procedures Name Priority Associated Diagnoses Date/Ti me COLONOSCOPY FLEXIBLE PROXIMAL DIAGNOSTIC Recall History of colon polyps Screening for colorectal cancer 06/11/2023 8:30 AM EDT Health Maintenance Due Date Last Done Comments COLONOSCOPY-EVERY 3 YRS AGES 18-100 04/19/2022 04/20/2019, 04/20/2019, 02/15/2009 COVID-19 Vaccine (24 season) 2022 09/08/2021, 04/08/2020, 03/12/2020 Depression Screening [...] this encounter Medical Devices Implanted Type Area Exec. Creative Director Device Identifier Shelf Expiration Date Model / Serial / Lot Lens 13.5 Sn60wf - [id number] Implanted:Qty: 1 on 12/16/2013 at OR [facility] Left: Eye [employer] 01/17/2018 SN60WF.13 5 / [id number] / Lens 13.5 M160l - [id number] - [id number] Implanted:Qty: 1 on 07/28/2015 by Camacho Murphy MD at OR [facility] Right: Eye [employer] LOMB : SURGICAL 04/17/2016 YL11G-80. 5 / [id number] / [id number] Clip Quick 2.8mm 230cm - [id number] Implanted:Qty: 4 on 04/20/2019 by Janine Moody MD at ENDOSCOPY [facility] [employer] HX-202UR. A / / Woundmatrix Fenstr 7x10cm (70 Units) - [id number] - [id number] Implanted:Qty: 1 on 03/14/2022 by Merna Baird MD at OR [facility] Right: Head [employer] [id number] 08/18/2023 [id number] / [id number] / [id number] documented as of this encounter Advance Directives Latest Code Status [...] and were consensually agreed upon. Care Teams Item Processing Clerk Relationship Specialty Start Date End Date Keisha Grossman MD [address] [place] [address] PCP - General Family Medicine 01/03/23 documented as of this encounter
--- OUTSIDE RECORDS SUMMARY | 2023-09-02 22:17 | External Medical Summary | Summary of Care ---
Author Name Unknown Organization [facility] Address [address] [place] [address] Phone [phone] Care Team Providers Care Proj Engineer Name Role Phone Keisha Grossman MD Primary Care Provider [phone] Encounter Details Date Type Department Care Team (Late st Contact Info) Description 06/11/2023 Orders Only Outcomes Research Department [address] [place], [place] [id number] Danita Hernandez CHRA [employer] Other*[id number] Allergies Active Allergy Reactions Criticality Noted Date Comments Environmental 07/07/2007 [place] pollen documented as of this encounter (statuses as of 06/11/2023) Medications Medication Sig Dispensed Refills Start Date End Date Status MENS MULTIVITAMIN PLUS PO TABS one tablet daily 0 06/09/2012 Suspen ded Famotidine 20 MG Oral Tablet (Pepcid) Take 1 Tab by mouth daily. 90 Tab 3 01/28/2020 Suspended Additional Information Patient taking differently:20 mg Oral Daily(AM),Indications: as needed, Informant: Patient, Reported on 06/04/2023 Diclofenac Sodium 1 % External Gel Apply topically to affected area. Apply to 0 Suspended predniSONE 5 MG Oral Tablet (Deltasone) Take 1 to 2 tabs daily 180 Tablet 4 01/23/2023 Suspended Additional Information Patient not taking.Reported on 06/04/2023 Rosuvastatin Calcium 10 MG Oral Tablet (Crestor)Indicatio ns:Dyslipidemia Take 1 Tablet by mouth in the morning. 90 Tablet 1 01/29/2023 Suspended Additional Information Celecoxib 200 MG Oral Capsule (CeleBREX) Take 1 Capsule by mouth in the morning. For pain. 30 Capsule 5 03/19/2023 Suspended Additional Information Tamsulosin HCl 0.4 MG Oral Capsule (Flomax)Indication s:BPH with obstruction/lower urinary tract symptoms Take 1 Capsule by mouth in the morning. 90 Capsule 3 04/04/2023 Suspended Additional Information documented as of this encounter (statuses as of 06/11/2023) Active Problems Problem Noted Date Diagnosed Date [...] collected), PET (negative). On Keytruda infusions in [place] Other melanoma History: Location: L preauricular Year: 2009 Depth: Lentigo Maligna Treatment: Slow Mohs Staging: Stage 0 - [id number] - Melanoma in situ Location: Left vertex scalp Year: 2013 Depth: 0.7mm (at least) Treatment: Mohs ([facility] with Dr David Arias). SLN biopsy (SLN inconclusive, Do not see path report) Staging: Stage IA - W2sP8D4 - < 0.8 mm without ulceration DDD [...] as of this encounter (statuses as of 06/11/2023) Resolved Problems Problem Noted Date Diagnosed Date Resolved Date Closed fracture of manubrium with routine healing 11/29/2015 03/21/2018 Overview: 12/03 Bilateral hand pain 03/03/2014 09/19/19 19 History of malignant melanoma of skin 01/01/2011 11/29/2015 Overview: Treated--[facility] surgery. 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 documented as of this encounter (statuses as of 06/11/2023) Immunizations Name Administration Dates Next Due COVID-19 [...] Care Team (Late st Contact Info) Description 07/01/2023 2:00 PM EDT Office Visit Dermatology [facility] [address] [place] [address] [address] Kim Schultz MD [address] [place] [address] [address] 07/04/2023 7:40 AM EDT Office Visit Family Practice [facility] [address] [place] [address] [address] Keisha Grossman MD [address] [place] [address] 10/18/2023 1:00 PM EDT Office Visit Dermatology [facility] [address] [place] [address] Ben Mcneill MD [address] [place] [address] 10/24/2023 2:45 PM EDT Office Visit Hematology/Oncology [facility] [place] [address] [phone] Herberth Ndiaye MD [address] [facility] [place] [address] 12/23/2023 9:00 AM EST Nurse Only Ancillary [facility] [address] [facility] [place] [address] Im, Nurse Annual Wellness [facility] [address] [facility] [place] [address] 01/31/2024 1:00 PM EST Office Visit Dermatology [facility] [address] [facility] [place] [address] Ben Mcneill MD [address] [facility] [place] [address] Scheduled Orders Name Type Priority Associated Diagnoses Orde r Schedule MYCODE SUBSEQUENT ADULT Lab Routine [employer] Other*[id number] Every 6 Months for 2 Occurrences starting 06/11/2023 until 06/30/2024 Scheduled Procedures Name Priority Associated Diagnoses Date/Ti me COLONOSCOPY FLEXIBLE PROXIMAL DIAGNOSTIC History of colon polyps Screening for colorectal cancer 06/11/2023 8:30 AM EDT Health Maintenance Due Date Last Done Comments COLONOSCOPY-EVERY 3 YRS AGES 18-100 04/19/2022 04/20/2019, 04/20/2019, 02/15/2009 COVID-19 Vaccine ( season) 2022 09/08/2021, 04/08/2020, [...] this encounter Medical Devices Implanted Type Area Perfect Binder Feeder Offbearer Device Identifier Shelf Expiration Date Model / Serial / Lot Lens 13.5 Sn60wf - [id number] Implanted:Qty: 1 on 12/16/2013 at OR [facility] Left: Eye [employer] 01/17/2018 SN60WF.13 5 / [id number] / Lens 13.5 M160l - [id number] - [id number] Implanted:Qty: 1 on 07/28/2015 by Camacho Murphy MD at OR [facility] Right: Eye [employer] LOMB : SURGICAL 04/17/2016 WC71P-85. 5 / [id number] / [id number] Clip Quick 2.8mm 230cm - [id number] Implanted:Qty: 4 on 04/20/2019 by Janine Moody MD [facility] [employer] HX-202UR. A / / Woundmatrix Fenstr 7x10cm (70 Units) - [id number] - [id number] Implanted:Qty: 1 on 03/14/2022 by Merna Baird MD [place] [facility] [place]: Head [employer] [id number] 08/18/2023 [id number] / [id number] / [id number] documented as of this encounter Visit Diagnoses Diagnosis [employer] Other*[id number] documented in this encounter Advance Directives Latest [...] and were consensually agreed upon. Care Teams Proj Engineer Relationship Specialty Start Date End Date Keisha Grossman MD [address] [place] [address] PCP - General Family Medicine 01/03/23 documented as of this encounter
--- OUTSIDE RECORDS SUMMARY | 2023-09-02 22:17 | External Medical Summary | Summary of Care ---
Author Name Unknown Organization [facility] Address [address] [place] [address] Phone [phone] Care Team Providers Care Sales Office Assistant Name Role Phone Keisha Grossman MD Primary Care Provider [phone] Reason for Referral * Evaluate & Treat - Unlimited Visits (Within 30 days (routine)) - Pending Review Specialty Diagnoses / Procedures Referred By Contac t Referred To Contact Pain Management / Pain Medicine Diagnoses Chronic bilateral low back pain without sciatica Keisha Grossman MD [address] [place] [address] Referral ID Status Reason Start Date Expiration Date Visits Requested Visits Authorized [id number] Pending Review Specialty Services Required 07/04/[phone] Question Answer Referral Priority Within 30 days (routine) Where should this appointment be scheduled? [facility] Reason for referral? Interventional Pain Management - (Injection) What condition is the patient being referred for? Back Axial What is the preferred location to have this test performed? [facility] Patient Name: Sander Arias Date of : 1945 Department Phone Number: MRI or CT (if unable to have a MRI) is recommended if any of the following apply: 1. Patient has neck or back pain with radiation to extremities. A previous MRI will be accepted if symptoms unchanged since prior MRI. 2. Spinal surgery since last MRI. If yes, order a MRI with and without contrast. 3. Hx or ongoing cancer treatment. Patient will need spine x-ray (Ap/Lat) for axial neck or back pain if not done previously. Fax No. [facility] [phone] or contact front maker [phone] Fax No. [facility] [phone] or contact front maker [phone] Fax No. [facility] [phone] or contact front maker [phone] Reason for Visit * Reason Comments Follow Up Encounter Details Date Type Department Care Team (Latest Contact Info) Description 07/04/2023 7:40 AM EDT Office Visit [facility] [place] [address] [facility] [place] [address] Keisha Grossman MD [address] [facility] [place], [place] [address] Dyslipidemia*; Gastroesophageal reflux disease without esophagitis; BPH with obstruction/lower urinary tract symptoms; Primary osteoarthritis involving multiple joints; History of malignant melanoma of skin; Chronic bilateral low back pain without sciatica Allergies Active Allergy Reactions Criticality Noted Date Comments Environmental 07/07/2007 Elton pollen documented as of this encounter (statuses as of 07/04/2023) Medications Medication Sig Dispensed Refills Start Date End Date Status MENS MULTIVITAMIN PLUS PO TABS one tablet daily 0 3 Active Famotidine 20 MG Oral Tablet (Pepcid) Take 1 Tab by mouth daily. 90 Tab 3 0 Active Additional Information Patient taking differently:20 mg Oral Daily(AM),Indications: as needed, Informant: Patient, Reported on 06/04/2023 Diclofenac Sodium 1 % External Gel Apply topically to affected area. Apply to 0 Active predniSONE 5 MG Oral Tablet (Deltasone) Take 1 to 2 tabs daily 180 Tablet 4 3 Active Additional Information Patient taking differently: 10 mg Oral Daily(AM), Take 1 to 2 tabs daily, Reported on 07/04/2023 Tamsulosin HCl 0.4 MG Oral Capsule (Flomax)Indicati ons:BPH with obstruction/lowe r urinary tract symptoms Take 1 Capsule by mouth in the morning. 90 Capsule 3 4 Active Rosuvastatin Calcium 10 MG Oral Tablet (Crestor)Indicat ions:Dyslipidemi a Take 1 Tablet by mouth in the morning. 90 Tablet 1 4 Active Vicks Sinex DayQuil/NyQuil Oral Take by mouth. 0 Active Acetaminophen ER 650 MG Oral Tablet Extended Release (Tylenol 8 Hour) Take 1 Tablet by mouth every 8 hours as needed. 0 Active Cephalexin 500 MG Oral Capsule (Keflex) Take 1 Capsule by mouth in the morning and 1 Capsule before bedtime. Do all this for 7 days. 14 Capsule 0 4 07/04/19 24 Discontinued Celecoxib 200 MG Oral Capsule (CeleBREX) Take 1 Capsule by mouth in the morning. For pain. 30 Capsule 5 4 07/04/19 24 [facility] documented as of this encounter (statuses as of 07/04/2023) Active Problems Problem Noted Date Diagnosed Date Gastroesophageal reflux disease without esophagi tis 01/18/2022 Dyslipidemia 12/18/2021 Primary osteoarthritis involving multiple joints 12/18/2021 Hx of actinic keratosis 02/02/2019 BPH with obstruction/lower urinary tract symptom s 02/01/2017 DDD (degenerative disc disease), lumbar 12/30/19 15 Allergic rhinitis 06/04/2007 Other chronic allergic conjunctivitis 06/04/2007 Erectile dysfunction documented as of this encounter (statuses as of 07/04/2023) Resolved Problems Problem Noted Date Diagnosed Date Resolved Date 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 documented as of this encounter (statuses as of 07/04/2023) Immunizations Name Administration Dates Next Due COVID-19 [...] on file documented as of this encounter Last Filed Vital Signs Vital Sign Reading Time Taken Comments Blood Pressure 126/72 07/04/2023 7:39 AM EDT Pulse 58 07/04/2023 7:39 AM EDT Temperature 35.9 C (96.7 F) 07/04/2023 7:39 AM ED T Respiratory Rate 16 07/04/2023 7:39 AM EDT Oxygen Saturation 96% 07/04/2023 7:39 AM EDT Inhaled Oxygen Concentration - - Weight 95.7 kg (211 lb) 07/04/2023 7:39 AM EDT Height - - Body Mass Index 29.43 06/11/2023 8:03 AM EDT documented in this encounter Progress Notes * Keisha Grossman MD - 07/04/2023 7:35 AM EDT Subjective Chief Complaint Patient presents with Follow Up HPI: Sander Arias is a 77 year old male. Patient is unaccompanied. The following issues were addressed today: Patient presents today for follow-up. Patient has history of melanoma of scalp, cheek, shoulder. Has undergone several excisions. Followswith dermatology regularly. He was receiving Keytruda infusions with [facility] in [place] last year for malignant melanoma but stopped due to worsening muscle/joint pain. Has diffuse arthritic pain. He follows with rheumatology. Was on Celebrex but now back on prednisone in the past week due to flare in symptoms. Back has really been bothering him. Had an injection years ago but didn't help, not sure it was in the right place. Has tried physical therapy in the past but did not help. Lumbar spine x-ray 06/06/21: Five lumbar-type vertebral bodies. Mild grade 1 anterolisthesis of L4 on L5. Mild retrolisthesis ofL1 on L2 and L2 on L3. No significant vertebral body height loss. Ucae-xn-zqvfqrat multilevel intervertebral disc degeneration, greatest at L5-S1. Multilevel facet osteoarthritis, greatest near the les mbosacral junction. No fracture or aggressive osseous lesion identified. Mild bilateral sacroiliac osteoarthritis. Zusk-uo-hxgqcosn osteoarthritis of both hips. Had colonoscopy 06/11/23. Five 2-3mm polylps removed. Path consistent with tubular adenoma. Taking rosuvastatin 10 mg for hyperlipidemia. Lipids stable. Also continues on Flomax for BPH with urinary symptoms. Working well. On Pepcid for GERD. Symptoms stable. Review of Systems: See HPI Objective BP 126/72 | Pulse 58 | Temp 35.9 C (96.7 F) (Tympanic) | Resp 16 | Wt 95.7 kg (211 lb) | SpO2 96% | BMI 29.43 kg/m | BSA 2.19 m Wt Readings from Last 3 Encounters: 07/04/23 95.7 kg (211 lb) 06/11/23 97.1 kg (214 lb) 04/23/23 95.5 kg (210 lb 8 oz) BP Readings from Last 3 Encounters: 07/04/23 126/72 06/11/23 119/70 04/23/23 157/90 General: Well-appearing, no acute distress Cardiovascular: Regular rate and rhythm, no murmur Respiratory: Good respiratory effort, breath sounds equal and clear to auscultation bilaterally Neurological: Alert and oriented, no focal deficits noted Psychiatric: Appropriate mood and affect Lipid Panel Results: Results for orders placed or performed in visit on 01/14/23 LIPID PANEL WITH DIRECT LDL IF TG IS HIGH Result Value Ref Range Triglycerides 170 <=174 mg/dL Cholesterol 175 <200 mg/dL HDL Cholesterol 55 >39 mg/dL Non-HDL Cholesterol 120 <=159 mg/dL LDL Cholesterol 86 <=129 mg/dL Assessment & Plan 1. Dyslipidemia Well-controlled. Continue current medication(s). 2. Gastroesophageal reflux disease without esophagitis Well-controlled. Continue current medication(s). 3. BPH with obstruction/lower urinary tract symptoms Well-controlled. Continue current medication(s). 4. Primary osteoarthritis involving multiple joints Continue management per rheumatology. 5. History of malignant melanoma of skin Follow-up with dermatology as scheduled. 6. Chronic bilateral low back pain without sciatica - PAIN MEDICINE REFERRAL OP Return in about 6 months (around 01/04/2024) for routine follow-up. This note was electronically signed by Keisha Grossman MD documented in this encounter Nursing Notes * Jewels Espino LPN - 07/04/2023 7:38 AM EDT Sander Arias presents for 6 month recheck. Medications & HM reviewed. Recently switched from celebrex to 10 mg prednisone daily due to arthritis flare. Had colonoscopy recently and he'd like to discuss those results. documented in this encounter Plan of Treatment Upcoming Encounters Date Type Department Care Team (Late st Contact Info) Description 09/16/2023 9:00 AM EDT Office Visit [facility] [address] [place] [address] Nicole Moreno PA-C [address] [place] [address] 10/18/2023 1:00 PM EDT Office Visit Dermatology [facility] [address] [place] [address] Ben Mcneill MD [address] [facility] [place] [address] 10/24/2023 2:45 PM EDT Office Visit Hematology/Oncology [facility] [place] [address] [place] [id number] Herberth Ndiaye MD [address] [facility] [place] [address] 12/23/2023 9:00 AM EST Nurse Only Ancillary [facility] [address] [facility] [place] [id number] Im, Nurse Annual Wellness [facility] [address] [place] [address] 01/06/2024 8:00 AM EST Office Visit Family Practice [facility] [place] [address] [place] [address] Keisha Grossman MD [address] [place] [address] 01/31/2024 1:00 PM EST Office Visit Dermatology [facility] [place] [address] [facility] [place] [address] Ben cMneill MD [address] [facility] [place] [address] Scheduled Procedures Name Priority Associated Diagnoses Date/Ti me COLONOSCOPY FLEXIBLE PROXIMA L DIAGNOSTIC Recall History of colonic polyps Scheduled Referrals Name Type Priority Associated Diagnoses Orde r Schedule PAIN MEDICINE REFERRAL OP Referral Within 30 days (routine) Chronic bilateral low back pain without sciatica Ordered: 07/04/2023 Health Maintenance Due Date Last Done Comments [...] this encounter Medical Devices Implanted Type Area Sealer Sander Device Identifier Shelf Expiration Date Model / Serial / Lot Lens 13.5 [id number] - [id number] Implanted:Qty: 1 on 12/16/2013 at OR [facility] Left: Eye [employer] 01/17/2018 [id number].13 5 / [id number] / Lens 13.5 M160l - [id number] - [id number] Implanted:Qty: 1 on 07/28/2015 by Camacho Murphy MD at OR [facility] Right: Eye [employer] : SURGICAL 04/17/2016 [id number]-33. 5 / [id number] / [id number] Clip Quick 2.8mm 230cm - [id number] Implanted:Qty: 4 on 04/20/2019 by Janine Moody MD at ENDOSCOPY [facility] [employer] [id number]. A / / Woundmatrix Fenstr 7x10cm (70 Units) - [id number] - [id number] Implanted:Qty: 1 on 03/14/2022 by Merna Baird MD at OR [facility] Right: Head [employer] [id number] 08/18/2023 [id number] / [id number] / [id number] documented as of this encounter Visit Diagnoses Diagnosis Dyslipidemia- Primary Other and unspecified hyperlipidemia Gastroesophageal reflux disease without esophagitis Esophageal reflux BPH with obstruction/lower urinary tract symptoms Hypertrophy of prostate with urinary obstruction and other lower urinary tract symptoms (LUTS) Primary osteoarthritis involving multiple joints History of malignant melanoma of skin Personal history of malignant melanoma of skin Chronic bilateral low back pain without sciatica documented in this encounter Advance Directives Latest [...] and were consensually agreed upon. Care Teams Sales Office Assistant Relationship Specialty Start Date End Date Keisha Grossman MD [address] [place] [address] PCP - General Family Medicine 01/03/23 documented as of this encounter"
--- OUTSIDE RECORDS SUMMARY | 2023-09-02 22:17 | External Medical Summary | Summary of Care ---
Author Name Unknown Organization [facility] Address [address] [place] [address] Phone [phone] Care Team Providers Care Vp Respiratory Name Role Phone Keisha Grossman MD Primary Care Provider Reason for Visit * Auth/Cert Specialty Diagnoses / Procedures Referred By Inez t Referred To Contact Diagnoses History of colon polyps Screening for colorectal cancer History of colon polyps [Z86.010] Screening for colorectal cancer [Z12.11, Z12.12] Procedures COLONOSCOPY, DIAGNOSTIC (RECTUM) COLONOSCOPY FLEXIBLE PROXIMAL DIAGNOSTIC María Elena Stafford DO [address] [place] [address] [facility] [address] [place] [phone] Referral ID Status Reason Start Date Expiration Date Visits Re quested Visits Authorized [id number] Encounter Details Date Type Department Care Team (Latest Contact Info) Description 06/11/2023 7:30 AM EDT - 06/11/2023 10:00 AM EDT Hospital Encounter [facility], Endoscopy Room [facility] [address] [place] [phone] María Elena Stafford DO [address] [place] [id number] Colonoscopy Discharge Disposition: Home - Self Care Allergies Active Allergy Reactions Criticality Noted Date Comments Environmental 07/07/2007 [place] pollen documented as of this encounter (statuses [...] to affected area. Apply to 0 Active Rosuvastatin Calcium 10 MG Oral Tablet (Crestor)Indication s:Dyslipidemia Take 1 Tablet by mouth in the morning. 90 Tablet 1 01/29/2023 Active Celecoxib 200 MG Oral Capsule (CeleBREX) Take 1 Capsule by mouth in the morning. For pain. 30 Capsule 5 03/19/2023 Active Tamsulosin HCl 0.4 MG Oral Capsule (Flomax)Indications [...] collected), PET (negative). On Keytruda infusions in [place] Other melanoma History: Location: L preauricular Year: 2009 Depth: [place] Maligna Treatment: Slow Mohs Staging: Stage 0 - [id number] - Melanoma in situ Location: Left vertex scalp Year: 2013 Depth: 0.7mm (at least) [facility] SLN biopsy (SLN inconclusive, Do not see path report) Staging: Stage IA - [id number] - < 0.8 mm without ulceration DDD [...] Sign Reading Time Taken Comments Blood Pressure 119/70 06/11/2023 9:47 AM EDT Pulse 65 06/11/2023 9:47 AM EDT Temperature 36.1 C (97 F) 06/11/2023 9:47 AM EDT Respiratory Rate 16 06/11/2023 9:47 AM EDT Oxygen Saturation 97% 06/11/2023 9:47 AM EDT Inhaled Oxygen Concentration - - Weight 97.1 kg (214 lb) 06/11/2023 8:03 AM EDT Height 180.3 cm (5' 11") 06/11/2023 8:03 AM EDT Body Mass Index 29.85 06/11/2023 8:03 AM EDT documented in this encounter H&P Notes * María Elena Stafford, DO - 06/11/2023 8:35 AM EDT Endoscopy Pre-Procedure Assessment Name: Sander Arias Date: 06/11/2023 Time: 8:35 AM Procedure: Colonoscopy; with Indication(s) of colon polyp surveillance Endoscopy Pre-Procedure Assessment: Prior to the procedure, the patient was identified. The patient's history, medications and allergies were reviewed as per the Anesthesia Assessment. The patient is competent. The risks and benefits of the proposed procedure and the planned sedation were discussed with the patient. All questions were answered and informed consent for the procedure was obtained. This patient has undergone a preprocedural evaluation. A determination has been made to proceed with the planned procedure under [facility] procedural guidelines and the [facility] Non-Emergent, Elective Medical Services and Treatment Recommendations (published on 05-26-19). The community and hospital prevalence of COVID-19 has been discussed as well as this patient's specific risks associated with SARS-CoV-19 infection. Based upon the clinical acuity and patient-specific care considerations, this procedure is deemed a Tier II - Intermediate acuity treatment or service with either progression or the threat of progressive disease related to the delay in treatment. Not providing the service has the potential for increasing morbidity or mortality. BP 136/83 | Pulse 59 | Temp 35.9 C (96.6 F) (Tympanic) | Resp 20 | Ht 1.803 m (5' 11") | Wt 97.1 kg (214 lb) | SpO2 97% | BMI 29.85 kg/m | BSA 2.21 m Prior to Admission medications Medication Sig Last Dose Discont. Tamsulosin HCl 0.4 MG Oral Capsule (Flomax) Take 1 Capsule by mouth in the morning. Past Week Celecoxib 200 MG Oral Capsule (CeleBREX) Take 1 Capsule by mouth in the morning. For pain. Past Week Rosuvastatin Calcium 10 MG Oral Tablet (Crestor) Take 1 Tablet by mouth in the morning. Past Week Diclofenac Sodium 1 % External Gel Apply topically to affected area. Apply to Past Week Famotidine 20 MG Oral Tablet (Pepcid) Take 1 Tab by mouth daily. Patient taking differently: Take 1 Tablet by mouth in the morning. Past Week MENS MULTIVITAMIN PLUS PO TABS one tablet daily Past Week Cephalexin 500 MG Oral Capsule (Keflex) Take 1 Capsule by mouth in the morning and 1 Capsule beforebedtime. Do all this for 7 days. predniSONE 5 MG Oral Tablet (Deltasone) Take 1 to 2 tabs daily Patient not taking: Reported on 06/04/2023 Not Taking Review of patient's allergies indicates: Allergen Reactions Environmental [place] pollen Physical Exam: Mental Status Examination: alert and oriented. General: nad, calm Airway Examination: normal oropharyngeal airway and neck mobility. Respiratory Examination: symmetrical excursion Cardiac: RRR, no murmurs Abd:soft/ntd ASA Grade: II - A patient with mild systemic disease. After reviewing the risks and benefits, the patient was deemed in satisfactory condition to undergothe procedure. The anesthesia plan was to use general anesthesia. María Elena Stafford DO Gastroenterology and Hepatology 06/11/2023 documented in this encounter Procedure Notes * Keisha Grossman MD - 06/11/2023 8:35 AM EDTAssociated Order(s): COLONOSCOPY [facility] Patient Name: Sander Arias Procedure Date: 06/11/2023 8:35 AM Date of : 1945 Admit Type: Outpatient Note Status: Finalized Date of : 1945 Admit Type: Outpatient Age: 77 Room: [facility] Gender: Male Note Status: Finalized Procedure: Colonoscopy Indications: High risk colon cancer surveillance: Personal history of adenoma (10 mm or greater in size) Providers: María Elena Stafford DO (Doctor) Patient Profile: This is a 77 year old male. Refer to note in patient chart for documentation of history and physical. Referring MD: Keisha Grossman (Referring MD) Medicines: General Anesthesia Complications: No immediate complications. Procedure: Pre-Anesthesia Assessment: - Prior to the procedure, a History and Physical was performed, and patient medications and allergies were reviewed. The risks and benefits of the procedure and the sedation options and risks were discussed with the patient. All questions were answered and informed consent was obtained. Patient identification and proposed procedure were verified by the physician, the nurse and the writing manager in the procedure room. Mental Status Examination: alert and oriented. Airway Examination: Mallampati Class II (the uvula but not tonsillar pillars visualized). Respiratory Examination: clear to auscultation. CV Examination: RRR, no murmurs, no S3 or S4. Prophylactic Antibiotics: The patient does not require prophylactic antibiotics. Prior Anticoagulants: The patient has taken no anticoagulant or antiplatelet agents. ASA Grade Assessment: II - A patient with mild systemic disease. After reviewing the risks and benefits, the patient was deemed in satisfactory condition to undergo the procedure. The anesthesia plan was to use general anesthesia. Immediately prior to administration of medications, the patient was re-assessed for adequacy to receive sedatives. The physical status of the patient was re-assessed after the procedure. After I obtained informed consent, the scope was passed under direct vision. All instruments were visually inspected immediately before and after removal from the patient to ensure they are fully intact. Throughout the procedure, the patient's blood pressure, pulse, and oxygen saturations were monitored continuously. The colonoscopy was performed without difficulty. The patient tolerated the procedure well. The quality of the bowel preparation was good. The [id number]-[id number]([id number] was introduced through the anus and advanced to the cecum, identified by appendiceal orifice and ileocecal valve. Findings & Specimens: The perianal and digital rectal examinations were normal. A 2 mm polyp was found in the cecum. The polyp was sessile. The polyp was removed with a cold snare. Resection and retrieval were complete. Verification of patient identification for the specimen was done by the physician and nurse using the patient's name and date. The pathology specimen was placed into Bottle Number 1. Three sessile polyps were found in the transverse colon. The polyps were 2 to 3 mm in size. These polyps were removed with a cold snare. Resection and retrieval were complete. The pathology specimen was placed into Bottle Number 2. A 3 mm polyp was found in the recto-sigmoid colon. The polyp was sessile. The polyp was removed with a cold snare. Resection and retrieval were complete. The pathology specimen was placed into Bottle Number 3. The retroflexed view of the distal rectum and anal verge was normal and showed no anal or rectal abnormalities. Impression: - One 2 mm polyp in the cecum, removed with a cold snare. Resected and retrieved. - Three 2 to 3 mm polyps in the transverse colon, removed with a cold snare. Resected and retrieved. - One 3 mm polyp at the recto-sigmoid colon, removed with a cold snare. Resected and retrieved. Recommendation: - Patient has a contact number available for emergencies. The signs and symptoms of potential delayed complications were discussed with the patient. Return to normal activities tomorrow. Written discharge instructions were provided to the patient. - The patient will be observed post-procedure, until all discharge criteria are met. - Discharge patient to home (with escort). - Resume previous diet. - Continue present medications. - Await pathology results. - Repeat colonoscopy date to be determined after pending pathology results are reviewed for surveillance. María Elena Stafford DO 06/11/2023 9:30:42 AM This report has been signed electronically. documented in this encounter Nursing Notes * Shantell [place] RN - 06/11/2023 10:00 AM EDT Patient is alert, pain free, passing flatus and tolerating po fluids prior to discharge. Patient has been visited by Dr. Stafford. Patient has received and demonstrates understanding of discharge instructions. Patient ambulated to private auto accompanied by endo staff. * Riky Polanco RN - 06/11/2023 9:27 AM EDT Pt juan colonoscopy w/ polypectomies well. Abd pressure applied to assist w/ advancement of the scope. Abd soft post proc. To recovery lying on L side. Pre cleaning of scope at the bedside started by mri technician. Specimen(s) and location(s) verified with physician post procedure 9:30 AM Riky Polanco RN See anesthesia record for medication administered during procedure. Riky Polanco RN * Fina Roe RN - 06/11/2023 8:05 AM EDT Patient prepped and ready for procedure. Call fox in reach. * Fina Roe RN - 06/11/2023 7:41 AM EDT The following pt discharge instructions reviewed with pt prior to prodedure: No driving today. No alcohol today. No signing of legal documents. Rest as much as possible today and can return to normal activities tomorrow. No operating any heavy equipment today. Diet as tolerated. Pt verbalized understanding. documented in this encounter Plan of Treatment Upcoming Encounters Date Type Department Care Team (Late st Contact Info) Description 07/01/2023 2:00 PM EDT Office Visit Dermatology [facility] [address] [facility] [place] [address] Kim Schultz MD [address] [facility] [place] [address] 07/04/2023 7:40 AM EDT Office Visit Family Practice [facility] [address] [place], [place] [address] Keisha Grossman MD [address] [facility] [place] [address] 10/18/2023 1:00 PM EDT Office Visit Dermatology [facility] [address] [facility] [address] [place], [place] [address] Ben Mcneill MD [address] [facility] [place] [address] 10/24/2023 2:45 PM EDT Office Visit Hematology/Oncology [facility] [address] [facility] [address] [place], [place] [id number] Herberht Ndiaye MD [address] [facility] [place] [address] 12/23/2023 9:00 AM EST Nurse Only Ancillary [facility] [address] [facility] [place] [address] Im, Nurse Annual Wellness [facility] [address] [facility] [place] [id number] 01/31/2024 1:00 PM EST Office Visit Dermatology [facility] [address] [facility] [place] [address] Ben Mcneill MD [address] [facility] [place] [address] Pending Results Name Type Priority Associated Diagnoses Date /Time SURGICAL PATHOLOGY Pathology Routine History of colon polyps Screening for colorectal cancer 06/11/2023 9:27 AM EDT Scheduled Orders Name Type Priority Associated Diagnoses Orde r Schedule SURGICAL PATHOLOGY Pathology Routine History of colon polyps Screening for colorectal cancer Release Upon Ordering for 1 Occurrences starting 06/11/2023 Scheduled Procedures Name Priority Associated Diagnoses Date/Ti me COLONOSCOPY FLEXIBLE PROXIMAL DIAGNOSTIC History of colon polyps Screening for colorectal cancer 06/11/2023 8:48 AM EDT Health Maintenance Due Date Last Done Comments COVID-19 Vaccine ( season) 2022 09/08/2021, 04/08/2020, 03/12/2020 Depression Screening 12/20/2023 12/19/2022 DTaP,Tdap,and Td Vaccines (3 - Td or Tdap) 02/18/2025 02/18/2015, 11/07/2007 COLONOSCOPY-EVERY 3 YRS AGES 18-100 06/10/2026 06/11/2023, 04/20/2019, 04/20/2019, Additional history exists Pneumococcal Vaccine: 65+ [...] this encounter Medical Devices Implanted Type Area Rehabilitation Caseworker Device Identifier Shelf Expiration Date Model / Serial / Lot Lens 13.5 Sn60wf - [id number] Implanted:Qty: 1 on 12/16/2013 at OR [facility] Left: Eye [employer] 01/17/2018 SN60WF.13 5 / [id number] / Lens 13.5 M160l - [id number] - [id number] Implanted:Qty: 1 on 07/28/2015 by Camacho Murphy MD at OR [facility] Right: Eye [employer] : SURGICAL 04/17/2016 [id number]-20. 5 / [id number] / [id number] Clip Quick 2.8mm 230cm - [id number] Implanted:Qty: 4 on 04/20/2019 by Janine Moody MD at ENDOSCOPY [facility] [employer] [id number]. A / / Woundmatrix Fenstr 7x10cm (70 Units) - [id number] - [id number] Implanted:Qty: 1 on 03/14/2022 by Merna Baird MD at OR [facility] Right: Head [employer] [id number] 08/18/2023 [id number] / [id number] / [id number] documented as of this encounter Procedures Procedure Name Priority Date/Time Associated Diagnosis Comments COLONOSCOPY 06/11/2023 8:35 AM EDT documented in this encounter Results * COLONOSCOPY (06/11/2023 8:35 AM EDT) 06/11/2023 8:35 AM EDT Narrative Procedure Note Keisha Grossman MD - 06/11/2023 8:35 AM EDT [facility] Patient Name: Sander Arias Procedure Date: 06/11/2023 8:35 AM Date of : 1945 Admit Type: Outpatient Note Status:Finalized Date of : 1945 Admit Type: Outpatient Age: 77 Room: Endo 2 Gender: Male Note Status: Finalized Procedure: Colonoscopy Indications: High risk colon cancer surveillance: Personalhistory of adenoma (10 mm or greater in size) Providers: María Elena Stafford DO (Doctor) Patient Profile: This is a 77 year old male. Refer to note inpatient chart for documentation of history and physical. Referring MD: Keisha Grossman (Referring MD) Medicines: General Anesthesia Complications: No immediate complications. Procedure: Pre-Anesthesia Assessment: - Prior to the procedure, a History and Physicalwas performed, and patient medications and allergies were reviewed. The risksand benefits of the procedure and the sedation options and risks were discussed withthe patient. All questions were answered and informed consent was obtained. Patientidentification and proposed procedure were verified by the physician, the nurseand the writing manager in the procedure room. Mental Status Examination: alertand oriented. Airway Examination: Mallampati Class II (the uvula but not tonsillarpillars visualized). Respiratory Examination: clear to auscultation. CV Examination:RRR, no murmurs, no S3 or S4. Prophylactic Antibiotics: The patient does notrequire prophylactic antibiotics. Prior Anticoagulants: The patient has taken noanticoagulant or antiplatelet agents. ASA Grade Assessment: II - A patient with mildsystemic disease. After reviewing the risks and benefits, the patient was deemed insatisfactory condition to undergo the procedure. The anesthesia plan was to use generalanesthesia. Immediately prior to administration of medications, the patient wasre-assessed for adequacy to receive sedatives. The physical status of the patient wasre-assessed after the procedure. After I obtained informed consent, the scope waspassed under direct vision. All instruments were visually inspected immediatelybefore and after removal from the patient to ensure they are fully intact. Throughout the procedure, the patient's bloodpressure, pulse, and oxygen saturations were monitored continuously. The colonoscopy wasperformed without difficulty. The patient tolerated the procedure well. The qualityof the bowel preparation was good. The PCF-[id number]([id number] was introducedthrough the anus and advanced to the cecum, identified by appendiceal orifice andileocecal valve. Findings & Specimens: The perianal and digital rectal examinations were normal. A 2 mm polyp was found in the cecum. The polyp was sessile. The polypwas removed with a cold snare. Resection and retrieval were complete. Verification of patientidentification for the specimen was done by the physician and nurse using the patient's name and date.The pathology specimen was placed into Bottle Number 1. Three sessile polyps were found in the transverse colon. The polypswere 2 to 3 mm in size. These polyps were removed with a cold snare. Resection and retrieval werecomplete. The pathology specimen was placed into Bottle Number 2. A 3 mm polyp was found in the recto-sigmoid colon. The polyp wassessile. The polyp was removed with a cold snare. Resection and retrieval were complete. The pathologyspecimen was placed into Bottle Number 3. The retroflexed view of the distal rectum and anal verge was normaland showed no anal or rectal abnormalities. Impression: - One 2 mm polyp in the cecum, removed with a coldsnare. Resected and retrieved. - Three 2 to 3 mm polyps in the transverse colon,removed with a cold snare. Resected and retrieved. - One 3 mm polyp at the recto-sigmoid colon,removed with a cold snare. Resected and retrieved. Recommendation: - [facility] The signs and symptoms of potential delayed complications were discussed withthe patient. Return to normal activities tomorrow. Written discharge instructionswere provided to the patient. - The patient will be observed post-procedure,until all discharge criteria are met. - Discharge patient to home (with escort). - Resume previous diet. - Continue present medications. - Await pathology results. - Repeat colonoscopy date to be determined afterpending pathology results are reviewed for surveillance. María Elena Stafford DO 06/11/2023 9:30:42 AM This report has been signed electronically. Keisha Grossman MD [facility] documented in this encounter Visit Diagnoses Diagnosis History of colon polyps Personal history of colonic polyps Screening for colorectal cancer Special screening for malignant neoplasms, colon documented in this encounter Administered Medications Inactive Administered Medications - up to 3 most recent administrations Medication Order MAR Action Action Date Dose Rate Site Acetaminophen (Tylenol) tab 650 mg 650 mg, Oral, PRN Pain, Mild, Starting on Sat06/11/23 at 0938, Until Sat06/11/23 at 1401, For 1 dose, Maximum of 4 grams (4000 mg) per day., Post-op isolyte-S pH 7.4 infusion Intravenous, at 100 mL/hr, Plasma-LYTE 148, isolyte-S, and isolyte-S pH 7.4 are considered equivalent - including for MAR barcode scanning., CONTINUOUS, Starting on Sat06/11/23 at 0815, Until Sat06/11/23 at 1401, Pre-Op Continue from Pre-Op 06/11/2023 8:45 AM EDT 100 mL/hr New Bag 06/11/2023 8:05 AM EDT 100 mL/hr documented in this encounter Active and Recently Administered Medications Times are shown in EDT. Continuous Medication Order 06/09/2023 06/10/2023 06/11/2023 isolyte-S pH 7.4 infusion Intravenous, at 100 mL/hr, Plasma-LYTE 148, isolyte-S, and isolyte-S pH 7.4 are considered equivalent - including for MAR barcode scanning., CONTINUOUS, Starting on Sat06/11/23 at 0815, Until Sat06/11/23 at 1401, Pre-Op 0805 (New Bag - Prov ider: Fina Roe RN)0845 (Continue from Pre-Op - Provider: Radha Power CRNA)0928 (Anes Intra-Op Fluid - Provider: Radha Power CRNA) PRN Medication Order 06/09/2023 06/10/2023 06/11/2023 Acetaminophen (Tylenol) tab 650 mg 650 mg, Oral, PRN Pain, Mild, Starting on Sat06/11/23 at 0938, Until Sat06/11/23 at 1401, For 1 dose, Maximum of 4 grams (4000 mg) per day., Post-op documented in this encounter Advance Directives Latest [...] and were consensually agreed upon. Care Teams Vp Respiratory Relationship Specialty Start Date End Date Keisha Grossman MD [address] [place] [address] PCP - General Family Medicine 01/03/23 documented as of this encounter
--- OUTSIDE RECORDS SUMMARY | 2023-09-02 22:17 | External Medical Summary | Summary of Care ---
Author Name Unknown Organization [facility] Address [address] [place] [address] Phone [phone] Care Team Providers Care Cosmetic Sales Assistant Name Role Phone Keisha Grossman MD Primary Care Provider Reason for Visit * Reason Comments Excision Left Upper Back Encounter Details Date Type Department Care Team ([facility] st Contact Info) Description 05/23/2023 2:00 PM EDT Office Visit MOHS Surgery [facility] [address] [place] [address] Kim Schultz MD [address] [place] [id number] Melanoma in situ of back (HCC)* Allergies Active Allergy Reactions Criticality Noted Date Comments Environmental 07/07/2007 [place] pollen documented as of this encounter (statuses [...] collected), PET (negative). On Keytruda infusions in [place] Other melanoma History: Location: L preauricular Year: 2009 Depth: Lentigo Maligna Treatment: Slow Mohs Staging: Stage 0 - [id number] - Melanoma in situ Location: Left vertex scalp Year: 2013 Depth: 0.7mm (at least) Treatment: Mohs ([facility] with Dr David Arias). SLN biopsy (SLN inconclusive, Do not see path report) Staging: Stage IA - [id number] - < 0.8 mm without ulceration DDD [...] malignant melanoma of skin 01/01/2011 11/29/2015 Overview: Treated--[facility] surgery. Hx melanoma - L [...] as needed Kim Schultz MD MOHS Surgery [facility] 200 [facility] [address] PROCEDURE NOTE Referred by: Kim Schultz MD [...] EDT Hospital Encounter ENDO OSSC, Endoscopy Room [facility] [address] [place] [phone] María Elena Stafford DO [address] [place] [address] 06/11/2023 8:30 AM EDT - 06/11/2023 9:00 AM EDT Surgery ENDO OSSC, Endoscopy Room [facility] [address] [place] [phone] María Elena Stafford DO [address] [place] [address] COLONOSCOPY FLEXIBLE PROXIMAL DIAGNOSTIC 07/01/2023 2:00 PM EDT Office Visit Dermatology [facility] [place] [address] [place] [address] Kim Schultz MD [address] [place] [address] 07/04/2023 7:40 AM EDT Office Visit Family Practice [facility] [place] [address] [place] [address] Keisha Grossman MD [address] [place] [address] 10/18/2023 1:00 PM EDT Office Visit Dermatology [facility] [place] [address] [place] [address] Ben Mcneill MD 200 [facility] [place] [address] 10/24/2023 2:45 PM EDT Office Visit Hematology/Oncology [facility] [place] [address] [phone] Herberth Ndiaye MD [address] [place] [address] 12/23/2023 9:00 AM EST Nurse Only Ancillary [facility] 200 [facility] [place] [address] Im, Nurse Annual Wellness [facility] 200 [facility] [place] [address] 01/31/2024 1:00 PM EST Office Visit Dermatology [facility] [place] 200 [facility] [place] [address] Ben Mcneill MD 200 [facility] [place] [address] Pending Results Name Type Priority Associated Diagnoses [...] this encounter Medical Devices Implanted Type Area Flight Communications Operator Device Identifier Shelf Expiration Date Model / Serial / Lot Lens 13.5 Sn60wf - [id number] Implanted:Qty: 1 on 12/16/2013 at OR [facility] Left: Eye [employer] 01/17/2018 SN60WF.13 5 / [id number] / Lens 13.5 M160l - [id number] - [id number] Implanted:Qty: 1 on 07/28/2015 by Camacho Murphy MD at OR [facility] Right: Eye [employer] LOM[employer] : SURGICAL 04/17/2016 [id number]-09. 5 / [id number] / [id number] Clip Quick 2.8mm 230cm - [id number] Implanted:Qty: 4 on 04/20/2019 by Janine Moody MD at ENDOSCOPY [facility] [employer] HX-202UR. A / / Woundmatrix Fenstr 7x10cm (70 Units) - [id number] - [id number] Implanted:Qty: 1 on 03/14/2022 by Merna Baird MD [place] [facility] Right: Head [employer] [id number] 08/18/2023 [id number] / [id number] / [id number] documented as of this encounter Visit Diagnoses [...] and were consensually agreed upon. Care Teams Cosmetic Sales Assistant Relationship Specialty Start Date End Date Keisha Grossman MD 200 [facility] [place] [address] PCP - General Family Medicine 01/03/23 documented as of this encounter
--- OUTSIDE RECORDS SUMMARY | 2023-09-02 22:17 | External Medical Summary | Summary of Care ---
Author Name Unknown Organization [facility] Address [address] [place] [address] Phone [phone] Care Team Providers Care Exercise Science Internship Name Role Phone Keisha Grossman MD Primary Care Provider [phone] Reason for Visit * Reason Onset Date Comments Scheduling 03/12/2023 Patient needs a melanoma skin check in May- 6mo from when Dr Kirkpatrick last saw him Encounter Details Date Type Department Care Team ([facility] Contact Info) Description 03/12/2023 Telephone Dermatology [facility] [address] [place] [address] Kim Schultz MD [address] [place] [address] Scheduling (Patient needs a melanoma skin ... Allergies Active Allergy Reactions Criticality Noted Date Comments Environmental 07/07/2007 [place] pollen documented as of this encounter (statuses [...] 06/04/2023 Rosuvastatin Calcium 10 MG Oral Tablet (Crestor)Indication s:Dyslipidemia Take 1 Tablet by mouth in the morning. 90 Tablet 1 01/29/2023 Active documented as of this encounter (statuses [...] collected), PET (negative). On Keytruda infusions in [place] Other melanoma History: Location: L preauricular Year: 2009 Depth: [place]entigo Maligna Treatment: Slow Mohs Staging: Stage 0 - GgsV2E8 - Melanoma in situ Location: Left vertex scalp Year: 2013 Depth: 0.7mm (at least) Treatment: Mohs ([facility] with Dr David Arias). SLN biopsy (SLN inconclusive, Do not see path report) Staging: Stage IA - G9aS0A2 - < 0.8 mm without ulceration DDD [...] money to buy more. Never true 12/27/19 Within the past 12 months, t he [...] encounter Miscellaneous Notes * Telephone Encounter - Kim Schultz MD - 03/12/2023 8:55 AM EST If no appointment availabilities with me, okay to schedule with another provider. Kim Schultz MD 03/12/2023 8:55 AM * Telephone Encounter - Mariana Cormier OSA - 03/12/2023 8:01 AM EST He has had multiple melanomas and Dr Kirkpatrick wanted him seen back in 6mos, so in June, he is currently booked for Oct for MM skin check. DR Schultz can you see if there is any time in June that this patient can be scheduled with you for amelanoma skin check. documented in this encounter Plan of Treatment Upcoming Encounters Date Type Department Care Team (Late st Contact Info) Description 07/01/2023 2:00 PM EDT Office Visit Dermatology [facility] [address] [place] [address] Kim Schultz MD [address] [place] [address] 07/04/2023 7:40 AM EDT Office Visit Family Practice [facility] [address] [place] [address] Keisha Grossman MD [address] [place] [address] 10/18/2023 1:00 PM EDT Office Visit Dermatology [facility] [address] [place] [address] Ben Mcneill MD [address] [place] [address] 10/24/2023 2:45 PM EDT Office Visit Hematology/Oncology [facility] [address] [place] [phone] Herberth Ndiaye MD [address] [place] [address] 12/23/2023 9:00 AM EST Nurse Only Ancillary [facility] [address] [place] [address] Im, Nurse Annual Wellness [facility] [address] [place] [address] 01/31/2024 1:00 PM EST Office Visit Dermatology [facility] [address] [place] [address] Ben Mcneill MD [address] [place] [address] Scheduled Procedures Name Priority Associated Diagnoses Date/Ti [...] this encounter Medical Devices Implanted Type Area Ticket Agent Device Identifier Shelf Expiration Date Model / Serial / Lot Lens 13.5 Sn60wf - [id number] Implanted:Qty: 1 on 12/16/2013 at OR [facility] Left: Eye [employer] 01/17/2018 SN60WF.13 5 / [id number] / Lens 13.5 M160l - [id number] - [id number] Implanted:Qty: 1 on 07/28/2015 by Camacho Murphy MD at OR [facility] Right: Eye [employer] LOMB : SURGICAL 04/17/2016 TV38I-74. 5 / [id number] / [id number] Clip Quick 2.8mm 230cm - [id number] Implanted:Qty: 4 on 04/20/2019 by Janine Moody MD at ENDOSCOPY [facility] [employer] HX-202UR. A / / Woundmatrix Fenstr 7x10cm (70 Units) - [id number] - [id number] Implanted:Qty: 1 on 03/14/2022 by Merna Baird MD at OR [facility] [place] Right: Head [employer] [id number] 08/18/2023 [id number] / [id number] / [id number] documented as of this encounter Advance Directives [...] and were consensually agreed upon. Care Teams Exercise Science Internship Relationship Specialty Start Date End Date Keisha Grossman MD [address] [place] [address] PCP - General Family Medicine 01/03/23 documented as of this encounter
--- OUTSIDE RECORDS SUMMARY | 2023-09-02 22:18 | External Medical Summary ---
Author Name Unknown Address Unknown Organization K09:[facility] [place] [address] Laboratory Report Ordering Provider Test Date Status SADA GALLAGHER 04/22/2023 13:22:26 Final Observation Date Value Abnormality Reference (Units ) Status BUN 04/22/2023 13:22:26 18 6-20 (mg/dL) Final Creatinine 04/22/2023 13:22:26 0.8 0.6-1.2 (mg/dL) Final Glomerular filtration rate/1.73 sq M.predicted [Volume Rate/Area] in Serum, Plasma or Blood by Creatinine-based formula (CKD-EPI) 04/22/2023 13:22:26 >90 >=60 (mL/min) Final eGFR is calculated based on the CKD-EPI 2020 equation SODIUM 04/22/2023 13:22:26 139 135-146 (m mol/L) Final Potassium 04/22/2023 13:22:26 4.5 3.5-5.1 (m mol/L) Final Cl 04/22/2023 13:22:26 104 98-107 (mm ol/L) Final CO2 04/22/2023 13:22:26 24 22-32 (mmo l/L) Final Anion gap 04/22/2023 13:22:26 11 7-15 (mmol /L) Final Glucose 04/22/2023 13:22:26 141 Above high normal 70 -120 (mg/dL) Final Albumin 04/22/2023 13:22:26 4.3 3.8-5.0 (g /dL) Final AST (Aspartate aminotransferase) 04/22/2023 13:22:26 18 10-50 (U/L) Fin al Alk Phos 04/22/2023 13:22:26 85 35-130 (U/ L) Final Bilirubin, Total 04/22/2023 13:22:26 0.6 <=1 .2 (mg/dL) Final Calcium 04/22/2023 13:22:26 9.6 8.4-10.2 ( mg/dL) Final Protein 04/22/2023 13:22:26 7.1 6.0-8.3 (g /dL) Final ALT (Alanine aminotransferase) 04/22/2023 13:22:26 16 10-50 (U/L) Juancarlos kulkarni Performing Location [facility] [address] - [address] [place] [address]
--- OUTSIDE RECORDS SUMMARY | 2023-09-02 22:18 | External Medical Summary | Summary of Care ---
Author Name Unknown Organization [facility] Address [address] [place] [address] Phone [phone] Care Team Providers Care Platform Inspector Name Role Phone Keisha Grossman MD Primary Care Provider [phone] Reason for Visit * Reason Onset Date Comments Scheduling 04/23/2023 Encounter Details Date Type Department Care Team ([facility] Contact Info) Description 04/23/2023 Telephone MOHS Surgery [facility] [address] [place] [address] Kim Schultz MD 200 [place] [address] Scheduling Allergies Active Allergy Reactions Criticality Noted Date Comments Environmental 07/07/2007 [place] pollen documented as of this encounter (statuses as of 04/24/2023) Medications Medication Sig Dispensed Refills Start Date [...] as of this encounter (statuses as of 04/24/2023) Active Problems Problem Noted Date Diagnosed Date [...] collected), PET (negative). On Keytruda infusions in [place] Other melanoma History: Location: L preauricular Year: 2009 Depth: Lent[place] Maligna Treatment: Slow Mohs Staging: Stage 0 - EiaZ7O3 - Melanoma in situ Location: Left vertex scalp Year: 2013 Depth: 0.7mm (at least) Treatment: Mohs ([facility] with Dr David Arias). SLN biopsy (SLN inconclusive, Do not see path report) Staging: Stage IA - X6yV5H5 - < 0.8 mm without ulceration DDD [...] as of this encounter (statuses as of 04/24/2023) Resolved Problems Problem Noted Date Diagnosed Date [...] as of this encounter (statuses as of 04/24/2023) Immunizations Name Administration Dates Next Due COVID-19 [...] encounter Miscellaneous Notes * Telephone Encounter - Mariana Cormier OSA - 04/24/2023 7:51 AM EST 04/23 LMM to call [phone] mariana to confirm scheduled appt for 05/22 at 2pm for an excision with Loli. Please transfer return calls to [phone] * Telephone Encounter - Kim Schultz MD - 04/23/2023 5:47 PM EST Please schedule patient for an excision with . A. Skin, left upper back, shave: Melanoma in situ, extending to the peripheral biopsy edges. Adjacent / associated seborrheic keratosis. documented in this encounter Plan of Treatment Upcoming Encounters Date Type Department Care Team (Latest Contact Info) Description 05/23/2023 2:00 PM EDT Office Visit MOHS Surgery [facility] [address] [place] [address] Kim Schultz MD 200 [place] [address] 06/11/2023 8:30 AM EDT Hospital Encounter ENDO OSSC, Endoscopy Room [facility] [address] [place] [address] María Elena Stafford, DO [address] [place] [address] 06/11/2023 8:30 AM EDT - 06/11/2023 9:00 AM EDT Surgery ENDO OSSC, Endoscopy Room [facility] [address] [place] [address] María Elena Stafford, DO [address] [place], [place] [address] COLONOSCOPY FLEXIBLE PROXIMAL DIAGNOSTIC 07/01/2023 2:00 PM EDT Office Visit Dermatology [facility] [address] [place] [address] Kim Schultz MD [address] [place] [address] 07/04/2023 7:40 AM EDT Office Visit Family Practice [facility] [place] [address] [place] [address] [address] Keisha Grossman MD [address] [place] [address] [address] 10/18/2023 1:00 PM EDT Office Visit Dermatology [facility] [place] [address] [place] [address] Ben Mcneill MD [address] [place] [address] [address] 10/24/2023 2:45 PM EDT Office Visit Hematology/Oncology [facility] [place] [address] [place] [phone] Herberth Ndiaye MD [address] [place] [address] 12/23/2023 9:00 AM EST Nurse Only Ancillary [facility] [address] [place] [address] Im, Nurse Annual Wellness [address] [place] [address] 01/31/2024 1:00 PM EST Office Visit Dermatology [facility] [address] [place] [address] Ben Mcneill MD 200 [facility] [place] [address] Scheduled Procedures Name Priority Associated Diagnoses Date/Ti [...] this encounter Medical Devices Implanted Type Area Rigging Loft Repairer Device Identifier Shelf Expiration Date Model / Serial / Lot Lens 13.5 Sn60wf - [id number] Implanted:Qty: 1 on 12/16/2013 at OR [facility] Left: Eye [employer] 01/17/2018 SN60WF.13 5 / [id number] / Lens 13.5 M160l - [id number] - [id number] Implanted:Qty: 1 on 07/28/2015 by Camacho Murphy MD at OR [facility] Right: Eye [employer] LOM[employer] : SURGICAL 04/17/2016 RD52Z-46. 5 / [id number] / [id number] Clip Quick 2.8mm 230cm - [id number] Implanted:Qty: 4 on 04/20/2019 by Janine Moody MD at [facility] [employer] HX-202UR. A / / Woundmatrix Fenstr 7x10cm (70 Units) - [id number] - [id number] Implanted:Qty: 1 on 03/14/2022 by Merna Baird [place] [facility] [place]: Head [employer] [id number] 08/18/2023 [id number] / [id number] / [id number] documented as of this encounter Advance Directives [...] and were consensually agreed upon. Care Teams Platform Inspector Relationship Specialty Start Date End Date Keisha Grossman MD [address] [place] [address] PCP - General Family Medicine 01/03/23 documented as of this encounter
--- OUTSIDE RECORDS SUMMARY | 2023-09-02 22:18 | External Medical Summary ---
Author Name Unknown Address Unknown Organization K09:[facility] [place] [address] Laboratory Report Ordering Provider Test Date Status SADA GALLAGHER 04/22/2023 13:22:26 Final Observation Date Value Abnormality Reference (Units ) Status WBC, Total 04/22/2023 13:22:26 7.69 4.00-10.8 0 (K/uL) Final RBC 04/22/2023 13:22:26 4.85 4.50-5.25 (M/uL) Final Hemoglobin 04/22/2023 13:22:26 14.9 14.0-16.8 (g/dL) Final HCT 04/22/2023 13:22:26 43.3 40.0-48.4 (%) Final MCV 04/22/2023 13:22:26 89.3 82.0-99.5 (fL) Final MCH 04/22/2023 13:22:26 30.7 27.0-34.0 (pg) Final MCHC 04/22/2023 13:22:26 34.4 32.0-36.0 (g/dL) Final RDW 04/22/2023 13:22:26 12.8 11.5-15.5 (%) Final Platelets 04/22/2023 13:22:26 225 140-400 (K /uL) Final MPV 04/22/2023 13:22:26 10.4 6.6-11.1 ( fL) Final Performing Location [facility] [place] [address]
--- OUTSIDE RECORDS SUMMARY | 2023-09-02 22:18 | External Medical Summary ---
Author Name Unknown Address Unknown Organization K01:[facility] [place] [place] - [address] [place] [address] Laboratory Report Ordering Provider Test Date Status SADA GALLAGHER 04/22/2023 13:22:26 Final Observation Date Value Abnormality Reference (Units ) Status TSH 04/22/2023 13:22:26 1.28 0.27-4.20 (uIU/mL) Final Performing Location [facility] [place] [place] - [address] [place] [address]
--- OUTSIDE RECORDS SUMMARY | 2023-09-02 22:18 | External Medical Summary | Summary of Care ---
Author Name Unknown Organization [facility] Address [address] [place] [address] Phone [phone] Care Team Providers Care Lockstitch Back Maker Name Role Phone Keisha Grossman MD Primary Care Provider [phone] Reason for Visit * Reason Onset Date Comments Scheduling 04/23/2023 Encounter Details Date Type Department Care Team ([facility] Contact Info) Description 04/23/2023 Telephone MOHS Surgery [facility] [address] [place] [address] Kim Schultz MD 200 [place] [address] Scheduling Allergies Active Allergy Reactions Criticality Noted Date Comments Environmental 07/07/2007 [place] pollen documented as of this encounter (statuses [...] collected), PET (negative). On Keytruda infusions in [place] Other melanoma History: Location: L preauricular Year: 2009 Depth: Lentigo Maligna Treatment: Slow Mohs Staging: Stage 0 - [id number] - Melanoma in situ Location: Left vertex scalp Year: 2013 Depth: 0.7mm (at least) Treatment: Mohs ([facility] with Dr David Arias). SLN biopsy (SLN inconclusive, Do not see path report) Staging: Stage IA - R5sB6O8 - < 0.8 mm without ulceration DDD [...] malignant melanoma of skin 01/01/2011 11/29/2015 Overview: Treated--[facility] surgery. Hx melanoma - L [...] Encounter - Mariana Cormier OSA - 04/24/2023 12:36 PM EST Spoke to patient and confirmed scheduled appt with Loli for May * Telephone Encounter - Mariana Cormier OSA - 04/24/2023 7:51 AM EST 3/6 LMM to call [phone] mariana to confirm scheduled appt for 05/22 at 2pm for an excision with Loli. Please transfer return calls to [phone] * Telephone Encounter - Kim Schultz MD - 04/23/2023 5:47 PM EST Please schedule patient for an excision with me . A. Skin, left upper back, shave: Melanoma in situ, extending to the peripheral biopsy edges. Adjacent / associated seborrheic keratosis. documented in this encounter Plan of Treatment Upcoming Encounters Date Type Department Care Team (Latest Contact Info) Description 05/23/2023 2:00 PM EDT Office Visit MOHS Surgery [facility] [place] [address] [place] [address] Kim Schultz MD [address] [place] [address] 06/11/2023 8:30 AM EDT Hospital Encounter ENDO OSSC, Endoscopy Room [facility] [address] [place] [address] María Elena Stafford DO [address] [place] [address] 06/11/2023 8:30 AM EDT - 06/11/2023 9:00 AM EDT Surgery ENDO OSSC, Endoscopy Room [facility] [address] [place] [address] María Elena Stafford DO [address] [place] [address] COLONOSCOPY FLEXIBLE PROXIMAL DIAGNOSTIC 07/01/2023 2:00 PM EDT Office Visit Dermatology [facility] [address] [place] [address] [address] Kim Schultz MD [address] [place] [address] 07/04/2023 7:40 AM EDT Office Visit Family Practice [facility] [place] [address] [place] [address] Keisha Grossman MD [address] [place] [address] 10/18/2023 1:00 PM EDT Office Visit Dermatology [facility] [place] [address] [place] [address] Ben Mcneill MD [address] [place] [address] [address] 10/24/2023 2:45 PM EDT Office Visit Hematology/Oncology [facility] 200 [facility] [place] [phone] Herberth Ndiaye MD 200 [facility] [place] [address] 12/23/2023 9:00 AM EST Nurse Only Ancillary [facility] [place] 200 [facility] [place] [address] Im, Nurse Annual Wellness [address] [place] [address] 01/31/2024 1:00 PM EST Office Visit Dermatology [facility] 200 [facility] [place] [address] Ben Mcneill MD [address] [place] [address] [place] [address] Scheduled Procedures Name Priority Associated Diagnoses Date/Ti [...] this encounter Medical Devices Implanted Type Area Central Lab Technician Device Identifier Shelf Expiration Date Model / Serial / Lot Lens 13.5 Sn60wf - [id number] Implanted:Qty: 1 on 12/16/2013 at OR [facility] Left: Eye [employer] 01/17/2018 SN60WF.13 5 / [id number] / Lens 13.5 M160l - [id number] - [id number] Implanted:Qty: 1 on 07/28/2015 by Camacho Murphy MD at OR [facility] Right: Eye [employer] : SURGICAL 04/17/2016 [id number]-63. 5 / [id number] / [id number] Clip Quick 2.8mm 230cm - [id number] Implanted:Qty: 4 on 04/20/2019 by Janine Moody MD at ENDOSCOPY [facility] [employer] HX-202UR. A / / Woundmatrix Fenstr 7x10cm (70 Units) - [id number] - [id number] Implanted:Qty: 1 on 03/14/2022 by Merna Baird MD [place] [facility] [place]: Head [employer] [id number] 08/18/2023 [id number] / [id number] / [id number] documented as of this encounter Advance Directives [...] and were consensually agreed upon. Care Teams Lockstitch Back Maker Relationship Specialty Start Date End Date Keisha Grossman MD 200 [facility] [place] [address] PCP - General Family Medicine 01/03/23 documented as of this encounter
--- OUTSIDE RECORDS SUMMARY | 2023-09-02 22:18 | External Medical Summary | Summary of Care ---
Author Name Unknown Organization [facility] Address [address] [place] [address] Phone [phone] Care Team Providers Care Router Machine Operator Name Role Phone Keisha Grossman MD Primary Care Provider Reason for Visit * Reason Comments Mohs Surgery * Evaluate & Treat - Unlimited Visits (Within 30 days (routine)) - Pending Review Specialty Diagnoses / Procedures Referred By Contmiegl t Referred To Contact Dermatology Diagnoses Skin tumor Patricia Kirkpatrick MD [address] [place] [id number] Referral ID Status Reason Start Date Expiration Date Visits Requested Visits Authorized [id number] Pending Review Specialty Services Required 3 1 1 Encounter Details Date Type Department Care Team ([facility] st Contact Info) Description 03/12/2023 7:45 AM EST Office Visit MOHS Surgery 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 90 Tab 3 01/28/2020 Active Diclofenac Sodium 1 % External Gel Apply topically to affected area. 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 90 Capsule 3 01/18/2022 Active predniSONE 5 MG Oral Tablet (Deltasone) Take 1 to 2 tabs daily 180 Tablet 4 01/23/2023 Active Rosuvastatin Calcium 10 MG Oral Tablet (Crestor)Indication s:Dyslipidemia Take 1 Tablet by mouth in the morning. 90 Tablet 1 01/29/2023 Active Cephalexin 500 MG Oral Capsule (Keflex) Take 1 Capsule by mouth in the morning and 1 Capsule before bedtime. Do all this for 7 days. 14 Capsule 0 03/12/2023 03/19/2023 Active documented as of this encounter (statuses as of 03/14/2023) Active Problems Problem Noted Date Diagnosed Date [...] collected), PET (negative). On Keytruda infusions in [place] Other melanoma History: Location: L preauricular Year: 2009 Depth: Lent[place] Maligna Treatment: Slow Mohs Staging: Stage 0 - [id number] - Melanoma in situ Location: Left vertex scalp Year: 2013 Depth: 0.7mm (at least) Treatment: Mohs ([facility] with Dr David Arias). SLN biopsy (SLN inconclusive, Do not see path report) Staging: Stage IA - [id number] - < 0.8 mm without ulceration DDD (degenerative disc disease), lumbar 12/30/19 15 HX-SKIN MALIGNANCY NEC - BCCs 12/26/2009 Overview: - BCC chin 2007 - BCC L neck 2007 (Ez) - clonal Olivia forehead 2014 - BCC, right upper back 2019 ADVANCE DIRECTIVE INFORMATION 07/07/2007 Overview: No, Advance Directive brochure given to patient at prior appointment. Allergic rhinitis 06/04/2007 Other chronic allergic conjunctivitis 06/04/2007 Osteoarthrosis involving multiple sites but not generalized Overview: Hands ,knees,hips,toes Erectile dysfunction documented as of this encounter (statuses as of 03/14/2023) Resolved Problems Problem Noted Date Diagnosed Date [...] as of this encounter (statuses as of 03/14/2023) Immunizations Name Administration Dates Next Due COVID-19 [...] Date Smoking Tobacco: Former Cigarettes 0.5 5 Q uit: 02/19/1968 Smokeless Tobacco: Never Comments:no passive smoke [...] Sign Reading Time Taken Comments Blood Pressure - - Pulse - - Temperature 36 C (96.8 F) 03/12/2023 8:28 AM EST Respiratory Rate - - Oxygen Saturation - - Inhaled Oxygen Concentration - - Weight 94.8 kg (209 lb) 03/12/2023 8:28 AM EST Height - - Body Mass Index 29.15 12/19/2022 8:17 AM EDT documented in this encounter Progress Notes * Sharif Martinez MD - 03/12/2023 8:26 AM EST History: Sander Arias is a 77 year old patient seen at the request for consultation by Dr. Kirkpatrick for evaluation and management of melanoma in situ, left preauricular. Melanoma history: Hx MM scalp 02/2022, S/P WLE and SLN (inconclusive b/c no silvio tissue collected), PET (negative). Hx Keytruda infusions in [place], stopped in July b/ of worsening MSK symptoms Other melanoma History: Location: L preauricular Year: 2009 Depth: L[place] Maligna Treatment: Slow Mohs Staging: Stage 0 - [id number] - Melanoma in situ Location: Left vertex scalp Year: 2013 Depth: 0.7mm (at least) Treatment: Mohs ([facility] with Dr David Arias). SLN biopsy (SLN inconclusive, Do not see path report) Staging: Stage IA - [id number] - < 0.8 mm without ulceration Additional Derm History: - BCC chin 2007 - BCC L neck 2006 (Hui) - clonal Olivia forehead 2014 - BCC, right upper back 2019 - AKs ROS: The patient feels generally well and has no other skin complaints. Exam: Patient is alert, oriented and in no distress. Exam is of the skin and mucosa of face. . The patient is alert and oriented and appears generally well. The patient's skin is remarkable for a pigmented patch on the left preauricular. . Size of lesion on wood's lamp examination: 3 cm Impression: 1. Melanoma in situ, left preauricular Plan: 1. Discussed diagnosis and treatment options with patient and family. He is aware that with this type of cancer, the processing takes several hours. Discussed that this tumor typically extends further than what we can see with our eye. We take a standard 8 mm margin to start out. We also take a punch biopsy from another site on the face as an internal control (shows baseline pigmentation for thispatient) Mohs resection today with MART-1 staining. Tumor cleared in 1 stage . Repaired with rhombic transposition flap. See operative report for complete details. Patient started on Cephalexin. Dewey Martinez MD Associate, Department of Dermatology documented in this encounter Procedure Notes * Sharif Martinez MD - 03/12/2023 12:00 PM EST CLINIC NOTES [facility] [place] [address] MOHS MICROGRAPHIC SURGERY Sander Arias [facility] [id number] 03/12/2023 MOHS NUMBER: [id number] BIOPSY: [id number] OPERATION: SURGICAL EXCISION OF CUTANEOUS MALIGNANCY USING CONTINUOUS MICROSCOPIC CONTROL(MOHS MICROGRAPHIC SURGERY) DIAGNOSIS: melanoma in situ LOCATION: left preauricular INDICATION FOR MOHS SURGERY: Large Size,Location,Histologic Type,Ill-Defined Margins SURGEON: Dewey Martinez M.D. CRANE FOLLOWER SURGEON: NONE CRANE FOLLOWER SURGEON: NONE ANESTHETIC: Buffered lidocaine 0.5% with epinephrine 1:200,000 ELECTRICIAN MACHINE SHOP: Dewey Martinez M.D. PREOPERATIVE SIZE OF LESION: 4.0 x 3.0 cm POSTOPERATIVE SIZE OF DEFECT: 4.3 x 3.3 cm ESTIMATED BLOOD LOSS: 5CC PROCEDURE: Time out called. Patient identified. Procedure matches verbalized consent. Site identified and verified and confirmed immediately prior to the procedure. Site marked. Thin layers of tumor-containing tissue were excised at each stage of surgery. These were cut into smaller tissue sections which were examined microscopically in a systematic fashion. Examination of the entire base and superficial peripheral margin allowed microscopic tumor extensions to be located and mapped. In accordance with the Mohs technique, this procedure enabled the maximum amount of normal tissue to be preserved while achieving the highest cure rate for cutaneous malignancy. At each surgical stage, the patient was prepped, the proposed excision outlined on the skin, and the area was reanesthetized as needed. STAGE I: The patient was prepped and the area of surgery was outlined. The operative site was anesthetized with a local injection of buffered lidocaine 0.5% with epinephrine 1:200,000. Following this the clinically apparent portion of the tumor was surgically removed. Hemostasis was achieved with an electrosurgical device. A thin layer of tissue was surgically excised and hemostasis was obtained. A reference map was drawn and the excised tissue was cut into 10 sections for examination in the micrographic laboratory. Edges of each section were dyed in order to achieve precise orientation. Horizontal sectioning of the base and continuous peripheral margins were then carried out and the prepared microscopic sections were examined by Dewey Martinez M.D.. Any areas of residual melanoma in situ were indicated on the reference map, pinpointing the location in which further tissue excision was necessary. At this point, no further tumor cells were identified and the tumor eradication was considered to be complete for a total of 1 stage of surgery in which multiple microscopic slices of 10 tissue sections had been examined. In addition to the hematoxylin and eosin or toludine blue stains that were preformed on each section from the Mohs stages, immunostains were also performed. Among all sections on selected slides from each stage, immuno stains were performed on a total of 10 sections. WOUND MANAGEMENT: This wound was reconstructed with a rhombic transposition flap. The surgical site was locally anesthesized with buffered lidocaine 0.5% with epinephrine 1:200,000. The skin was treated with surgical scrub solution. The beveled wound edges were then excised to 90 degrees relative to the surrounding skin plane. The flap was cut and elevated, and surrounding skin was undermined in all directions. Meticulous hemostasis was obtained with the electrosurgical device. The donor defect was closed. The flap was transposed (carried over intervening normal skin) into the defect and cut to precisely fit the wound. A dog-ear was excised to remove redundant tissue and the defect was closed in a layered fashion. Total volume of Buffered lidocaine 0.5% with epinephrine 1:200,000, for Mohs Surgery and reconstruction was 21 ml. The total area of repair was 36 sq. cm. Subcutaneous closure material: Interrupted 4-0 Vicryl and Interrupted 4-0 Monocryl Cutaneous closure material: Interrupted 5-0 Prolene and Interrupted 6-0 Prolene Dewey Martinez M.D. Associate Department of Dermatology documented in this encounter Nursing Notes * Onelia Aggarwal LPN - 03/12/2023 8:56 AM EST Chief Complaint Patient presents with Mohs Surgery Referral Doctor: Kaya Hypertension History: No Diabetes History: No Thyroid History: No Bleeding Tendency: No Artificial Valve or Joint: No Pacemaker: no Defibrillator: no Hepatitis/HIV Exposure: No Smoking: no Consent signed yes documented in this encounter Miscellaneous Notes * Result Encounter Note - Sharif Martinez MD - 03/14/2023 4:33 PM EST A. Skin, left preauricular, Mohs debulk: Residual melanoma in situ (see comment) Adjacent benign melanocytic nevus Comment: There is no evidence of invasive malignant melanoma. Adjacent to the prior procedure site changes in block A4 is a small benign melanocytic nevus. The residual melanoma in situ extends focally to the peripheral edge of this debulking specimen. Please refer to the Mohs operative report for definitive margin assessment. Peripheral margin clear with Mohs. Dewey Martinez MD * Letters - Sharif Martinez MD - 03/12/2023 12:00 PM EST Department of Dermatology M.CMaryan [id number] [address] [facility] [place], [place] [address] Dewey Martinez M.D. Associate Dermatologic Surgery March 12, 2023 Patricia Kirkpatrick MD [address] [facility] [place] [address] Sander Arias [id number] MOHS CASE: [id number] DX: melanoma in situ Dear Referring Provider, Thank you for referring Sander Arias for treatment of melanoma in situ of the left preauricular. This tumor required 1 stage for complete removal. The surgical wound was repaired with a rhombic transposition flap. Thanks again for referring your patient to our office. Yours trulyDewey M.D. documented in this encounter Plan of Treatment Upcoming Encounters Date Type Department Care Team (Latest Contact Info) Description 03/19/2023 11:45 AM EST Office Visit MOHS Surgery [facility] [place] [address] [place], [place] [address] Sharif Martinez MD [address] [facility] [place] [address] 03/22/2023 1:45 PM EST Office Visit Hematology/Oncology [facility] [place] [address] [facility] [place] [address] Herberth Ndiaye MD [address] [facility] [place] [id number] 06/11/2023 8:30 AM EDT Hospital Encounter ENDO OSSC, Endoscopy Room [facility] [address] [place], [place] [id number] María Elena Stafford, DO [address] [place] [address] 06/11/2023 8:30 AM EDT - 06/11/2023 9:00 AM EDT Surgery ENDO OSSC, Endoscopy Room [facility] [address] [place], [place] [address] María Elena Stafford, [address] [place] [address] COLONOSCOPY FLEXIBLE PROXIMAL DIAGNOSTIC 06/21/2023 1:00 PM EDT Office Visit Dermatology [facility] [place] [address] [place] [address] David Castillo MD [address] [place] [address] 07/04/2023 7:40 AM EDT Office Visit Family Practice [facility] [place] [address] [place] [address] Keisha Grossman MD [address] [facility] [place] [address] 12/12/2023 4:00 PM EDT Office Visit Dermatology [facility] [place] [address] [place] [address] Kim Schultz MD [address] [place] [address] 12/23/2023 9:00 AM EST Nurse Only Ancillary [facility] [place] [address] [place] [address] Im, Nurse Annual Wellness [facility] [address] [place] [address] Scheduled Procedures Name Priority Associated Diagnoses Date/Ti [...] this encounter Medical Devices Implanted Type Area Multi Media Specialist Device Identifier Shelf Expiration Date Model / Serial / Lot Lens 13.5 Sn60wf - [id number] Implanted:Qty: 1 on 12/16/2013 at OR [facility] Left: Eye [employer] 01/17/2018 [id number].13 5 / [id number] / Lens 13.5 M160l - [id number] - [id number] Implanted:Qty: 1 on 07/28/2015 by Camacho Murphy MD at OR [facility] Right: Eye [employer] : SURGICAL 04/17/2016 [id number]-[id number]. 5 / [id number] / [id number] Clip Quick 2.8mm 230cm - [id number] Implanted:Qty: 4 on 04/20/2019 by Janine Moody MD at ENDOSCOPY [facility] [employer] HX-202UR. 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 Skin, left preauricular, Mohs debulk: Residual melanoma in situ (see comment) Adjacent benign melanocytic nevus Comment: There is no evidence of invasive malignant melanoma. Adjacent to the prior procedure site changes in block A4 is a small benign melanocytic nevus. The residual melanoma in situ extends focally to the peripheral edge of this debulking specimen. Please refer to the Mohs operative report for definitive margin assessment. 03/14/2023 4:29 PM EST [facility] Clinical History See Order Comments 03/14/2023 4:29 PM EST [facility] Order Comments Melanoma in situ (see [id number]), Mohs debulk 03/14/2023 4:29 PM EST [facility] Gross Description A. Skin. Received in formalin with a container labeled with "Sander Arias", "[id number]", "1945" and " left pre-auricular". Received is an unoriented skin excision measuring 2.5 x 1.8 x 0.2 cm. The surface has a tello dull red-brown crusted possible previous biopsy site measuring 0.9 x 0.8 cm extending to 0.3 cm of the margin. The underlying tissue is inked. The specimen is serially sectioned into 8 pieces and entirely submitted in for cassettes, with tips in cassette A1. Gross By: KB 03/14/2023 4:29 PM EST [facility] Sign Out Location Pathologist sign out performed at [facility] ([facility] [address] [place] [address]. 03/14/2023 4:29 PM EST [facility] Photographic images and diagrams represent luo findings in this case; they are not intended to replace a complete review of the final diagnostic report. The following statement applies to Flow Cytometry, Histology, In situ Hybridization Assays and Molecular Genetics. This test was developed and performed at [facility] and its performance characteristics [facility] It has not been cleared or approved [...] with appropriate positive and negative control reactions. 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 Care Teams Router Machine Operator Relationship Specialty Start Date End Date Keisha Grossman MD [address] [place] [address] PCP - General Family Medicine 01/03/23 documented as of this encounter
--- OUTSIDE RECORDS SUMMARY | 2023-09-02 22:18 | External Medical Summary | Summary of Care ---
Author Name Unknown Organization [facility] Address [address] [place] [address] Phone [phone] Care Team Providers Care Associate Designer Name Role Phone Keisha Grossman MD Primary Care Provider [phone] Reason for Visit * Reason Comments Follow Up 3-4 month Encounter Details Date Type Department Care Team ([facility] st Contact Info) Description 04/23/2023 7:45 AM EST Office Visit [facility] [address] [place] [phone] Herberth Ndiaye MD [address] [place] [address] History of malignant melanoma of skin* Allergies Active Allergy Reactions Criticality Noted Date Comments Environmental 07/07/2007 [place] pollen documented as of this encounter (statuses as of 04/23/2023) Medications Medication Sig Dispensed Refills Start Date [...] as of this encounter (statuses as of 04/23/2023) Active Problems Problem Noted Date Diagnosed Date [...] collected), PET (negative). On Keytruda infusions in [place] Other melanoma History: Location: L preauricular Year: 2009 Depth: Lentigo Maligna Treatment: Slow Mohs Staging: Stage 0 - [id number] - Melanoma in situ Location: Left vertex scalp Year: 2013 Depth: 0.7mm (at least) [facility] SLN biopsy (SLN inconclusive, Do not see path report) Staging: Stage IA - [id number] - < 0.8 mm without ulceration DDD [...] as of this encounter (statuses as of 04/23/2023) Resolved Problems Problem Noted Date Diagnosed Date Resolved Date Closed fracture of manubrium with routine healing 11/29/2015 03/21/2018 Overview: 12/03 Bilateral hand pain 03/03/2014 09/19/19 19 History of malignant melanoma of skin 01/01/2011 11/29/2015 Overview: Treated--[facility] surgery. 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 documented as of this encounter (statuses as of 04/23/2023) Immunizations Name Administration Dates Next Due COVID-19 [...] 0 02/18/1963 - 02/19/1968 Smokeless Tobacco: Never Tobacco Cessation:Counseling Given: Not Answered Comments:no passive smoke exposures Alcohol Use Standard Drinks/Week Comments Not Currently [...] Sign Reading Time Taken Comments Blood Pressure 157/90 04/23/2023 7:46 AM EST Pulse 57 04/23/2023 7:46 AM EST Temperature 36.8 C (98.2 F) 04/23/2023 7:46 AM ES T Respiratory Rate 16 04/23/2023 7:46 AM EST Oxygen Saturation 96% 04/23/2023 7:46 AM EST Inhaled Oxygen Concentration - - Weight 95.5 kg (210 lb 8 oz) 04/23/2023 7:46 AM EST Height - - Body Mass Index 29.36 12/19/2022 8:17 AM EDT documented in this encounter Progress Notes * Herberth Ndiaye MD - 04/23/2023 7:45 AM EST ABDOUL ARIAS MR # [id number] :1945 77-year-old male, Date of consultation:04/03/2022 DIAGNOSIS: Melanoma involving the scalp, S/P resection (03/14/2022). -pathological T4a. Could not identify sentinel lymph node on the imaging study. CURRENT TREATMENT: - at present we decided to hold Keytruda because of ongoing musculoskeletal symptoms mainly relatedto the significant worsening osteoarthritis. He received Keytruda between May 2022- August 2022. DIAGNOSTIC WORKUP: History of melanoma removed from the scalp in 2013, he had a surgery done at [facility], based on the biopsy, depth of invasion was 0.7 mm, he had a surgical resection alone, did not require any adjuvant treatment following that. He remained under observation He noticed to have a pinkish nodule involving the scalp of 2 to 3 weeks duration. He was seen by Dr. Rosamilia. Bernard Skin, vertex, shave: (03/02/2019). Malignant melanoma, amelanotic, Breslow depth at least 1.3 m Was seen by Dr. Baird, underwent additional resection as follows. Could not find sentinel lymph node in the imaging studies so It was not done. A. 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 pT4a No lymphovascular invasion, microsatellite negative. Mitotic grade 20 mitoses per mm2. - The actinic keratoses, syringomas and squamous cell carcinoma in-situs are scattered throughout this excision specimen, including within the peripheral margin sections. - no nodes submitted or found OTHER IMPORTANT HISTORY: - DJD - Herpes zoster involving the right leg causing some neuropathy symptoms. - GERD, currently he takes Pepcid - he has longstanding history of DJD, he was seen by Dr. Nguyen in 2014, had rheumatoid factor testing done on 3 occasions which was negative, INTERVAL HISTORY: He has come the clinic for the follow-up, he came to clinic by himself. Overall he is doing well, intermittent flare-up of the underlying osteoarthritis, currently he takes prednisone 10 mg, he has not on Celebrex at this time, no nausea no vomiting, no new GI symptoms, no leg edema, good appetite, weight stable around 210 lb, ambulates well, no increasing headache Recently he had melanoma in-situ removed from the left adventist area. Past Medical History: Diagnosis Date Allergic rhinitis BPH with obstruction/lower urinary tract symptoms 02/01/2017 Dyslipidemia, goal LDL below 160 02/01/2009 Per Lipid Taxonomy. Erectile dysfunction History of malignant melanoma of skin 01/01/2011 Treated--[facility] surgery. 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, vertex 0.7 mm w/mitoses 06/2013 History of shingles 01/01/2017 HX-SKIN MALIGNANCY NEC - BCCs 12/26/2009 Hx BCC chin 2007, L neck 2006 (Hui), forehead clonal Olivia 12/2014 Osteoarthrosis involving multiple sites but not generalized Other chronic allergic conjunctivitis 06/04/2007 Past Surgical History: Procedure Laterality Date COLONOSCOPY, DIAGNOSTIC (RECTUM) 02/15/09 normal, repeat in 10 years COLONOSCOPY, DIAGNOSTIC (RECTUM) 04/20/2019 serrated adenomatous polyps, repeat 3 yrs / COLONOSCOPY FLEXIBLE PROXIMAL DIAGNOSTIC performed by Janine Moody MD at ENDOSCOPY [facility] FACE/SCALP DEEP TUMOR REMOVAL, 2 CM OR MORE N/A 03/14/2022 EXCISION FACE/SCALP DEEP TUMOR, 2 CM OR MORE performed by Merna Baird MD at OR [facility] LAPAROSCOPY; REPAIR INITIAL INGUINAL HERNIA Right 1996 in [place] MELANOMA AJCC STAGE 0 OR 1A DOCUMENTED 07/07/2013- 07/08/2013 Scalp removed- [facility] PATHOLOGY LAB PROCEDURE NEC 2009, 2008, 2007 basal cell, in situ melanoma, left neck REMOVE CATARACT, INSERT LENS PROSTH 12/16/2013 EXTRACAPSULAR CATARACT REMOVAL WITH INTRAOCULAR LENS performed by Paulo Hernandez MD at OR [facility] REMOVE CATARACT, INSERT LENS PROSTH Right 07/28/2015 EXTRACAPSULAR CATARACT REMOVAL WITH INTRAOCULAR LENS performed by Camacho Murphy MD at [facility] SACROILIAC JOINT INJECT W/GUIDANCE 11/21/2022 INJECTION SACROILIAC JOINT performed by Michael Mtz DO at [facility] Current Outpatient Medications Medication Sig Dispense Refill [...] No current facility-administered medications for this visit. Family History Problem Relation Age of Onset Neurological Disorder Mother Parkinsons, dementia Eye Problems Mother ? CRVO Other (Other) Mother DJD of spine, spinal stenosis Other (macular degeneration) Mother Lung Disorder Father emphysema, smoker Arthritis Grandmother (Paternal) disfig. fingers, toes Cancer Grandfather (Maternal) prostate Cancer Uncle (Unspecified) 66 prostate, /prostate, alive Diabetes Grandmother (Maternal) Diabetes Aunt (Unspecified) Stroke Aunt (Unspecified) Mental Disorder Brother 17 suicide Other ( infancy) Sister Other (celiac disease) Daughter Other (gout) Son Social History Socioeconomic History Marital status: Spouse name: Lolita Number of children: 2 Years of education: Not on file Highest education level: Not on file Occupational History Occupation: professor Employer: [employer] Comment: College Ed/Curriculum studies. Tobacco Use Smoking status: Former Current packs/day: 0.00 Average packs/day: 0.5 packs/day for 5.0 years (2.5 ttl pk-yrs) Types: Cigarettes Start date: 02/18/1963 Quit date: 02/19/1968 Years since quittin.2 Smokeless tobacco: Never Tobacco comments: no passive smoke exposures Vaping Use Vaping Use: Never used Substance and Sexual Activity Alcohol use: Not Currently Comment: 1 cocktail occ Drug use: No Sexual activity: Yes Partners: Female Comment: . 2 kids, 2 grandkids ([place], [place]) Other Topics Concern Service Not Asked Blood Transfusions Not Asked Caffeine Concern Not Asked Occupational Exposure Not Asked Hobby Hazards Not Asked Sleep Concern Not Asked Stress Concern No Weight Concern Not Asked Special Diet Not Asked Back Care Not Asked Exercise Not Asked Bike Helmet Not Asked Seat Belt Yes Self-Exams Not Asked Social History Narrative Likes golf,travel, photography [employer] [place] INFORMATION ENVIRONMENTAL HISTORY: Type of Home: [place] Type of Heating System: Electric Air Conditioning: Yes Central Basement: Finished, No evidence mold, mildew and Dry Home have cockroaches: No Irritants in the home: None Patient's bedroom location: Floor: first Type of erica: Carpeting Beds: Number: 1 Type of beds: Mattress and Box spring Pillows: Number: 2 Type of pillows: Feather (down) Bedroom contains: Minimal items Pets: 1 cat(s) and 1 dog(s) [place] a farm: No Teacher - College Education; no occupation related worsening of symptoms. Entered by: Del Guardado MD 06/04/2007 Social Determinants of Health Financial Resource Strain: Not on file Food Insecurity: No Food Insecurity (12/26/2022) Hunger Vital Sign Worried About Running Out of Food in the Last Year: Never true Ran Out of Food in the Last Year: Never true Transportation Needs: Not on file Physical Activity: Not on file Stress: Not on file Social Connections: Not on file Intimate Partner Violence: Not on file Housing Stability: Not on file On Exam: BP 157/90 (BP Site: Left Arm, BP Position: Sitting, BP Cuff Size: Large) | Pulse 57 | Temp 36.8 C(98.2 F) (Tympanic) | Resp 16 | Wt 95.5 kg (210 lb 8 oz) | SpO2 96% | BMI 29.36 kg/m | BSA 2.19m Constitutional: Patient is alert, cooperative and oriented x 3. Well built man, Patient is in no acute distress. HEENT:No icterus, no pallor, Throat and pharynx normal. Sinuses are non-tender. Neck: Supple and without lymphadenopathy or masses. No JVD. No Palpable supraclavicular lymph nodes. Lungs: Clear to auscultation. Bilateral symmetric air entry. No wheezing or rhonchi. Cardiovascular: Normal heart sounds, no murmurs.Regular rate and rhythm. Abdomen: soft, nontender, no hepatomegaly, no splenomegaly. Bowel sounds are normal. Neurological: No gross focal neurological deficit; walks with a normal gait. Extremities: No finger clubbing, No cyanosis. No leg edema. Skin:: No skin rash. SPINE: No spinal or paraspinal tenderness. LABS: Blood workup done on 10/18/2022: -WBC 6000, H&H of 14.5/42.4, Platelet count 347100 -BUN/Creat: 19/0.9, Calcium 9.4, normal LFT -TSH --> 2.66 Blood workup done on 04/22/2023: -WBC 7600, H&H of 14.9/43.3, Platelet count of 135440 -BUN/Creat: 18/0.8, Calcium 9.6, normal LFT -TSH --> 1.28 IMAGING: CT neck with contrast (04/02/2022 ) --> no enlarged lymph nodes noted, no soft tissue mass identified PET-CT scan (05/23/2022) --> negative for metastatic disease. ASSESSMENT AND PLAN: 76-year-old the male, a case of melanoma involving the scalp, earlier in the nearby area in 2013, S/P resection at that time but did not require any adjuvant treatment Recently he underwent resection, could not identify sentinel lymph node so we do not have that information but pathological T4a. -depth of invasion is 4.9 mm. He was [facility] by [facility], he was started on adjuvant Keytruda every 3 weekly in early May 2022 , last treatment received in our office on 09/07/2022 (400 mg) Because of significant worsening musculoskeletal symptoms, decided discontinue Keytruda treatment in August of 2022. Currently he is on prednisone 10 mg once a day, earlier he was on Celebrex, nowadays he is off the Celebrex. Recently he had melanoma in-situ removed from the left preauricular region (February of 2023). He will continue to have follow-up with Dermatology. Will continue to observe Reviewed blood workup done yesterday, overall stable blood workup noted. Normal thyroid function , normal liver function tests. Dr. Herberth Ndiaye Hem/Onc (This note was completed using the dictation program Fluency Direct. As such, there may be misspellings word substitutions, or other variations that should not change the essence of the clinical content of this encounter note. If there is need for further clarification, please direct questions to the provider listed above.) documented in this encounter Nursing Notes * Heaven Uribe LPN - 04/23/2023 7:48 AM EST Patient identifed by name and birthdate Do you have any concerns about pain management for today's visit? Yes. Patient instructed to discuss pain concerns with provider during the visit today Living Will or Advance Directive for Health Care as noted on the problem list. [facility] is a way you can talk to your provider on line through e-mail. Would you like to sign up? I can activate it for you? ALREADY ACTIVE Filed Vitals: 04/23/23 0746 BP: 157/90 Pulse: 57 Resp: 16 Temp: 36.8 C (98.2 F) TempSrc: Tympanic SpO2: 96% Weight: 95.5 kg (210 lb 8 oz) Patient was instructed to not get up on the exam table/exam chair until directed and assisted by their provider; patient is to remain seated in the chair/ wheelchair/ exam table/ exam chair for fall prevention and safety reasons. Patient is aware to have assistance to step down off exam table/exam chair with personnel. Patient voiced full comprehension of instructions. documented in this encounter Plan of Treatment Upcoming Encounters Date Type Department Care Team (Latest Contact Info) Description 06/11/2023 8:30 AM EDT Hospital Encounter ENDO OSSC, Endoscopy Room [facility] [address] [place] [phone] María Elena Stafford, [address] [place] [address] 06/11/2023 8:30 AM EDT - 06/11/2023 9:00 AM EDT Surgery ENDO [facility], Endoscopy Room [facility] [address] [place] [phone] María Elena Stafford DO [address] [place] [address] COLONOSCOPY FLEXIBLE PROXIMAL DIAGNOSTIC 07/01/2023 2:00 PM EDT Office Visit Dermatology [facility] [address] [place], [place] [address] Kim Schultz MD [address] [facility] [place], [place] [address] 07/04/2023 7:40 AM EDT Office Visit Family Practice [facility] [address] [place], [place] [address] Keisha Grossman MD [address] [place], [place] [address] 10/18/2023 1:00 PM EDT Office Visit Dermatology [facility] [address] [place], [place] [address] Ben Mcneill MD [address] [place], [place] [address] 10/24/2023 2:45 PM EDT Office Visit Hematology/Oncology [facility] [place] [address] [place], [place] [phone] Herberth Ndiaye MD [address] [place], [place] [address] 12/23/2023 9:00 AM EST Nurse Only Ancillary [facility] [place] [address] [place], [place] [address] Im, Nurse Annual Wellness [facility] [address] [place], [place] [address] 01/31/2024 1:00 PM EST Office Visit Dermatology [facility] [address] [place] [address] Ben Mcneill MD [address] [place], [place] [address] Scheduled Procedures Name Priority Associated Diagnoses Date/Ti me COLONOSCOPY FLEXIBLE PROXIMAL DIAGNOSTIC Recall History of colon polyps Screening for colorectal cancer 06/11/2023 8:30 AM EDT Health Maintenance Due Date Last Done Comments COLONOSCOPY-EVERY 3 YRS AGES 18-100 04/19/2022 04/20/2019, 04/20/2019, 02/15/2009 COVID-19 Vaccine (4 - 2022-24 season) 2022 09/08/2021, 04/08/2020, 03/12/2020 [...] this encounter Medical Devices Implanted Type Area Ground Systems Engineer Device Identifier Shelf Expiration Date Model / Serial / Lot Lens 13.5 Sn60wf - [id number] Implanted:Qty: 1 on 12/16/2013 at OR [facility] Left: Eye [employer] 01/17/2018 SN60WF.13 5 / [id number] / Lens 13.5 M160l - [id number] - [id number] Implanted:Qty: 1 on 07/28/2015 by Camacho Murphy MD at OR [facility] Right: Eye [employer] : SURGICAL 04/17/2016 [id number]-11. 5 / [id number] / [id number] Clip Quick 2.8mm 230cm - [id number] Implanted:Qty: 4 on 04/20/2019 by Janine Moody MD at ENDOSCOPY [facility] [employer] HX-202UR. A / / Woundmatrix Fenstr 7x10cm (70 Units) - [id number] - [id number] Implanted:Qty: 1 on 03/14/2022 by Merna Baird MD at OR [facility] Right: Head TALIB CARLIN [id number] 08/18/2023 [id number] / [id number] / [id number] documented as of this encounter Visit Diagnoses Diagnosis History of malignant melanoma of skin- Primary Personal history of malignant melanoma of skin History of colon polyps Personal history of [...] and were consensually agreed upon. Care Teams Associate Designer Relationship Specialty Start Date End Date Keisha Grossman MD [address] [place] [address] PCP - General Family Medicine 01/03/23 documented as of this encounter"
--- OUTSIDE RECORDS SUMMARY | 2023-09-02 22:18 | External Medical Summary | Summary of Care ---
Author Name Unknown Organization [facility] Address [address] [place] [address] Phone [phone] Care Team Providers Care Early Childhood Aide Classroom Name Role Phone Keisha Grossman MD Primary Care Provider [phone] Reason for Visit * Reason Onset Date Comments Scheduling 04/23/2023 Encounter Details Date Type Department Care Team ([facility] Contact Info) Description 04/23/[address] [facility] [address] [place] [address] Kim Schultz MD [address] [place] [address] Scheduling Allergies Active Allergy Reactions Criticality Noted Date Comments Environmental 07/07/2007 [place] pollen documented as of this encounter (statuses [...] collected), PET (negative). On Keytruda infusions in [place] Other melanoma History: Location: L preauricular Year: 2009 Depth: Lentigo Maligna Treatment: Slow Mohs Staging: Stage 0 - [id number] - Melanoma in situ Location: Left vertex scalp Year: 2013 Depth: 0.7mm (at least) Treatment: Mohs ([facility] with Dr David Arias). SLN biopsy (SLN inconclusive, Do not see path report) Staging: Stage IA - [id number] - < 0.8 mm without ulceration DDD [...] malignant melanoma of skin 01/01/2011 11/29/2015 Overview: Treated--[facility] surgery. Hx melanoma - L [...] EDT Hospital Encounter ENDO OSSC, Endoscopy Room [facility] [address] [place] [phone] María Elena Stafford DO [address] [place] [address] 06/11/2023 8:30 AM EDT - 06/11/2023 9:00 AM EDT Surgery ENDO [facility], Endoscopy Room [facility] [address] [place] [phone] María Elena Stafford DO [address] [place] [address] COLONOSCOPY FLEXIBLE PROXIMAL DIAGNOSTIC 07/01/2023 2:00 PM EDT Office Visit Dermatology [facility] [address] [place], [place] [address] Kim Schultz MD [address] [facility] [place] [address] 07/04/2023 7:40 AM EDT Office Visit Family Practice [facility] [address] [place] [address] Keisha Grossman MD [address] [facility] [place] [address] 10/18/2023 1:00 PM EDT Office Visit Dermatology [facility] [address] [place] [address] Ben Mcneill MD [address] [facility] [address] [place], [place] [address] 10/24/2023 2:45 PM EDT Office Visit Hematology/Oncology [facility] [place] [address] [place], [place] [phone] Herberth Ndiaye MD [address] [facility] [address] [place], [place] [address] 12/23/2023 9:00 AM EST Nurse Only Ancillary [facility] [place] [address] [place], [place] [address] Im, Nurse Annual Wellness [facility] [address] [place], [place] [address] 01/31/2024 1:00 PM EST Office Visit Dermatology [facility] [address] [place], [place] [address] Ben Mcneill MD [address] [facility] [place] [address] Scheduled Procedures Name Priority Associated Diagnoses Date/Ti [...] this encounter Medical Devices Implanted Type Area Piping Design Specialist Device Identifier Shelf Expiration Date Model / Serial / Lot Lens 13.5 Sn60wf - [id number] Implanted:Qty: 1 on 12/16/2013 at OR [facility] Left: Eye [employer] 01/17/2018 SN60WF.13 5 / [id number] / Lens 13.5 M160l - [id number] - [id number] Implanted:Qty: 1 on 07/28/2015 by Camacho Murphy MD at OR [facility] Right: Eye [employer]OM[employer] : SURGICAL 04/17/2016 XX18P-36. 5 / [id number] / [id number] Clip Quick 2.8mm 230cm - [id number] Implanted:Qty: 4 on 04/20/2019 by Janine Moody MD at ENDOSCOPY [facility] [employer] HX-[id number]. A / / Woundmatrix Fenstr 7x10cm (70 Units) - [id number] - [id number] Implanted:Qty: 1 on 03/14/2022 by Merna Baird MD at OR [facility] Right: Head TALIB CARLIN [id number] 08/18/2023 [id number] / [id number] / [id number] documented as of this encounter Advance Directives [...] and were consensually agreed upon. Care Teams Early Childhood Aide Classroom Relationship Specialty Start Date End Date Keisha Grossman MD [address] [place] [address] PCP - General Family Medicine 01/03/23 documented as of this encounter
--- OUTSIDE RECORDS SUMMARY | 2023-09-02 22:18 | External Medical Summary | Summary of Care ---
Author Name Unknown Organization [facility] Address [address] [place] [address] Phone [phone] Care Team Providers Care Company Dancer Name Role Phone Keisha Grossman MD Primary Care Provider [phone] Reason for Visit * Reason Onset Date Comments Medication Refill 04/03/2023 Encounter Details Date Type Department Care Team ([facility] st Contact Info) Description 04/03/2023 Refill Family Practice [facility] 200 [facility] [place] [address] Jasbir Eddy, DO [address] [place] [id number] BPH with obstruction/lower urinary tract symptoms Allergies Active Allergy Reactions Criticality Noted Date Comments Environmental 07/07/2007 [place] pollen documented as of this encounter (statuses as of 04/04/2023) Medications Medication Sig Dispensed Refills Start Date [...] the morning. 90 Capsule 3 04/04/2023 Active Tamsulosin HCl 0.4 MG Oral Capsule (Flomax)Indication s:BPH with obstruction/lower urinary tract symptoms Take 1 Capsule (0.4 mg) by mouth in the morning. 90 Capsule 3 01/18/2022 4 Discontinue d(Refill) documented as of this encounter (statuses as of 04/04/2023) Active Problems Problem Noted Date Diagnosed Date [...] collected), PET (negative). On Keytruda infusions in [place] Other melanoma History: Location: L preauricular Year: 2009 Depth: Lentigo Maligna Treatment: Slow Mohs Staging: Stage 0 - [id number] - Melanoma in situ Location: Left vertex scalp Year: 2013 Depth: 0.7mm (at least) Treatment: Mohs ([facility] with Dr David Arias). SLN biopsy (SLN inconclusive, Do not see path report) Staging: Stage IA - [id number] - < 0.8 mm without ulceration DDD [...] as of this encounter (statuses as of 04/04/2023) Resolved Problems Problem Noted Date Diagnosed Date Resolved Date Closed fracture of manubrium with routine healing 11/29/2015 03/21/2018 Overview: 12/03 Bilateral hand pain 03/03/2014 09/19/19 19 History of malignant melanoma of skin 01/01/2011 11/29/2015 Overview: Treated--[facility] surgery. 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 documented as of this encounter (statuses as of 04/04/2023) Immunizations Name Administration Dates Next Due COVID-19 [...] Miscellaneous Notes * Telephone Encounter - Francisca Estrada RPh - 04/04/2023 8:02 AM ESTSigned Prescriptions: Disp Refills Tamsulosin HCl 0.4 MG Oral Capsule (Flomax)90 Cap*3 Sig: Take 1Capsule by mouth in the morning.Authorizing Provider: Jesus Manuel GROSSMAN User: FRANCISCA ESTRADA documented in this encounter Plan of Treatment Upcoming Encounters Date Type Department Care Team (Latest Contact Info) Description 06/11/2023 8:30 AM EDT Hospital Encounter [facility]O [facility], Endoscopy Room [facility] [place] [phone] María Elena Stafford, DO [address] [place] [address] 06/11/2023 8:30 AM EDT - 06/11/2023 9:00 AM EDT Surgery ENDO [facility], Endoscopy Room [facility] [address] [place] [phone] María Elena Stafford, DO [address] [place] [address] COLONOSCOPY FLEXIBLE PROXIMAL DIAGNOSTIC 06/21/2023 1:00 PM EDT Office Visit Dermatology [facility] Monisha [place] [address] [place] [address] David Castillo MD [address] [place] [address] 07/04/2023 7:40 AM EDT Office Visit Family Practice [facility] [place] [address] [place] [address] Keisha Grossman MD 200 [facility] [place] [address] 12/12/2023 4:00 PM EDT Office Visit Dermatology [facility] [place] [address] [place] [address] Kim Schultz MD 200 [facility] [place] [address] 12/23/2023 9:00 AM EST Nurse Only Ancillary [facility] [place] [address] [place] [address] Im, Nurse Annual Wellness [facility] [address] [place] [address] [address] Scheduled Procedures Name Priority Associated Diagnoses Date/Ti [...] this encounter Medical Devices Implanted Type Area Director Of Clinical Education Device Identifier Shelf Expiration Date Model / Serial / Lot Lens 13.5 Sn60wf - [id number] Implanted:Qty: 1 on 12/16/2013 at OR [facility] Left: Eye [employer] 01/17/2018 SN60WF.13 5 / [id number] / Lens 13.5 M160l - [id number] - [id number] Implanted:Qty: 1 on 07/28/2015 by Camacho Murphy MD at OR [facility] Right: Eye [employer] LOMB : SURGICAL 04/17/2016 [id number]. 5 / [id number] / [id number] Clip Quick 2.8mm 230cm - [id number] Implanted:Qty: 4 on 04/20/2019 by Janine Moody MD at ENDOSCOPY [facility] [employer] HX-202UR. A / / Woundmatrix Fenstr 7x10cm (70 Units) - [id number] - [id number] Implanted:Qty: 1 on 03/14/2022 by Merna Baird MD at OR [facility] Right: Head [employer]LIN [id number] 08/18/2023 [id number] / [id number] / [id number] documented as of this encounter Visit Diagnoses Diagnosis BPH with obstruction/lower urinary tract symptoms Hypertrophy of prostate with urinary obstruction and other lower urinary tract symptoms (LUTS) History of colon polyps Personal history of [...] and were consensually agreed upon. Care Teams Company Dancer Relationship Specialty Start Date End Date Keisha Grossman MD [address] [place] [address] PCP - General Family Medicine 01/03/23 documented as of this encounter
--- OUTSIDE RECORDS SUMMARY | 2023-09-02 22:18 | External Medical Summary | Summary of Care ---
Author Name Unknown Organization [facility] Address [address] [place] [address] Phone [phone] Care Team Providers Care Tools Administrator Name Role Phone Keisha Grossman MD Primary Care Provider [phone] Reason for Visit * Reason Comments Outpatient Testing Encounter Details Date Type Department Care Team ([facility] st Contact Info) Description 04/22/2023 1:30 PM EST Laboratory Laboratory [facility] [address] [place] [phone] [facility] Lab Sc[address] [facility] [address] Cutaneous melanoma (HCC) Allergies Active Allergy Reactions Criticality Noted Date Comments Environmental 07/07/2007 [place] pollen documented as of this encounter (statuses as of 04/22/2023) Medications Medication Sig Dispensed Refills Start Date [...] as of this encounter (statuses as of 04/22/2023) Active Problems Problem Noted Date Diagnosed Date [...] collected), PET (negative). On Keytruda infusions in [place] Other melanoma History: Location: L preauricular Year: 2009 Depth: Lentigo Maligna Treatment: Slow Mohs Staging: Stage 0 - GplA3P1 - Melanoma in situ Location: Left vertex scalp Year: 2013 Depth: 0.7mm (at least) Treatment: Mohs ([facility] with Dr David Arias). SLN biopsy (SLN inconclusive, Do not see path report) Staging: Stage IA - [id number] - < 0.8 mm without ulceration DDD [...] as of this encounter (statuses as of 04/22/2023) Resolved Problems Problem Noted Date Diagnosed Date Resolved Date Closed fracture of manubrium with routine healing 11/29/2015 03/21/2018 Overview: 12/03 Bilateral hand pain 03/03/2014 09/19/19 History of malignant melanoma of skin 01/01/2011 11/29/2015 Overview: Treated--[facility] surgery. 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 documented as of this encounter (statuses as of 04/22/2023) Immunizations Name Administration Dates Next Due COVID-19 [...] Department Care Team (Latest Contact Info) Description 04/23/2023 7:45 AM EST Office Visit Hematology/Oncology [facility] 200 [facility] [place] [address] Herberth Ndiaye MD 200 [facility] [place] [address] 06/11/2023 8:30 AM EDT Hospital Encounter ENDO [facility], Endoscopy Room [facility] [address] [place] [phone] María Elena Stafford DO [address] [place] [address] 06/11/2023 8:30 AM EDT - 06/11/2023 9:00 AM EDT Surgery ENDO [facility], Endoscopy Room [facility] [address] [place] [phone] María Elena Stafford DO [address] [place] [address] COLONOSCOPY FLEXIBLE PROXIMAL DIAGNOSTIC 07/01/2023 2:00 PM EDT Office Visit Dermatology [facility] [address] [place] [address] Kim Schultz MD [address] [facility] [address] [place] [address] 07/04/2023 7:40 AM EDT Office Visit Family Practice [facility] [address] [facility] [address] [place] [address] Keisha Grossman MD [address] [facility] [address] [place] [address] 10/18/2023 1:00 PM EDT Office Visit Dermatology [facility] [address] [facility] [address] [place], [place] [address] Ben Mcneill MD [address] [facility] [address] [place] [address] 12/23/2023 9:00 AM EST Nurse Only Ancillary [facility] [place] [address] [facility] [address] [place], [place] [address] Im, Nurse Annual Wellness [facility] [address] [facility] [address] 01/31/2024 1:00 PM EST Office Visit Dermatology [facility] [place] [address] [facility] [address] [place], [place] [address] Ben Mcneill MD [address] [facility] [address] [place] [address] Pending Results Name Type Priority Associated Diagnoses Date /Time COMPREHENSIVE METABOLIC PANEL Lab STAT Cutaneous melanoma (HCC) 04/22/2023 1:22 PM EST TSH WITH FREE T4 IF INDICATED Lab STAT Cutaneous melanoma (HCC) 04/22/2023 1:22 PM EST Scheduled Procedures Name Priority Associated Diagnoses Date/Ti [...] this encounter Medical Devices Implanted Type Area Radiographer Device Identifier Shelf Expiration Date Model / Serial / Lot Lens 13.5 Sn60wf - [id number] Implanted:Qty: 1 on 12/16/2013 at OR [facility] Left: Eye [employer] 01/17/2018 SN60WF.13 5 / [id number] / Lens 13.5 M160l - [id number] - [id number] Implanted:Qty: 1 on 07/28/2015 by Camacho Murphy MD at OR [facility] Right: Eye BAUSCH [employer] LOMB : SURGICAL 04/17/2016 SL33C-11. 5 / [id number] / [id number] Clip Quick 2.8mm 230cm - [id number] Implanted:Qty: 4 on 04/20/2019 by Janine Moody MD at ENDOSCOPY [facility] [employer] HX-202UR. A / / Woundmatrix Fenstr 7x10cm (70 Units) - [id number] - [id number] Implanted:Qty: 1 on 03/14/2022 by Merna Baird MD at OR [facility] Right: Head [employer] [id number] 08/18/2023 [id number] / [id number] / [id number] documented as of this encounter Procedures Procedure Name Priority Date/Time Associated Diagnosis Comments DIFFERENTIAL, AUTOMATED STAT 04/22/2023 1:22 PM EST Cutaneous melanoma (HCC) CBC STAT 04/22/2023 1:22 PM EST Cutaneous melanoma (HCC) CBC STAT 04/22/2023 1:22 PM EST Cutaneous melanoma (HCC) documented in this encounter Results * DIFFERENTIAL, AUTOMATED (04/22/2023 1:22 PM EST) WBC 7.69 4.00 - 10.80 K/uL 04/22/2023 1:34 PM EST [facility] 56-02 Neutrophils % 74.6 40.0 - 75.0 % 04/22/2023 1:34 PM EST [facility] 56-02 Lymphocytes % 20.4 18.0 - 42.0 % 04/22/2023 1:34 PM EST [facility] 56-02 Monocytes % 4.0 1.0 - 11.0 % 04/22/2023 1:34 PM EST [facility] 56-02 Eosinophils % 0.7 0.0 - 6.0 % 04/22/2023 1:34 PM EST [facility] 56-02 Basophils % 0.3 0.0 - 2.0 % 04/22/2023 1:34 PM EST [facility] 56-02 Absolute Neutrophils 5.74 1.80 - 7.70 K/uL 04/22/2023 1:34 PM EST [facility] 56-02 Absolute Lymphocytes 1.57 1.00 - 4.80 K/ul 04/22/2023 1:34 PM EST [facility] 56-02 Absolute Monocytes 0.31 0.00 - 1.10 K/uL 04/22/2023 1:34 PM EST [facility] 56-02 Absolute Eosinophils 0.05 0.00 - 0.70 K/uL 04/22/2023 1:34 PM EST [facility] 56-02 Absolute Basophils 0.02 0.00 - 0.20 K/uL 04/22/2023 1:34 PM EST [facility] 56-02 Blood Venous blood specimen / Unknown Venipuncture / Unknown 04/22/2023 1:22 PM EST 04/22/2023 1:22 PM EST Herberth Ndiaye MD LAB BLOOD ORDERABLES [facility] 56 [address] [place] [address] * CBC (04/22/2023 1:22 PM EST) Pathologist [facility] WBC 7.69 4.00 - 10.80 K/uL 04/22/2023 1:34 PM EST [facility] 56 RBC 4.85 4.50 - 5.25 M/uL 04/22/2023 1:34 PM EST [facility] 56 HGB 14.9 14.0 - 16.8 g/dL 04/22/2023 1:34 PM [facility] 56 HCT 43.3 40.0 - 48.4 % 04/22/2023 1:34 PM [facility] 56 MCV 89.3 82.0 - 99.5 fL 04/22/2023 1:34 PM [facility] 56 MCH 30.7 27.0 - 34.0 pg 04/22/2023 1:34 PM [facility] 5602 MCHC 34.4 32.0 - 36.0 g/dL 04/22/2023 1:34 PM [facility] 56 RDW 12.8 11.5 - 15.5 % 04/22/2023 1:34 PM [facility] 5602 PLT 225 140 - 400 K/uL 04/22/2023 1:34 PM [facility] 5602 MPV 10.4 6.6 - 11.1 fL 04/22/2023 1:34 PM [facility] 5602 Blood Venous blood specimen / Unknown Venipuncture / Unknown 04/22/2023 1:22 PM EST 04/22/2023 1:22 PM EST Herberth Ndiaye MD LAB BLOOD ORDERABLES [facility] 56-02 200 [place] [address] documented in this encounter Visit Diagnoses Diagnosis Cutaneous melanoma (HCC) Melanoma of skin, site unspecified History of colon polyps Personal history of [...] and were consensually agreed upon. Care Teams Tools Administrator Relationship Specialty Start Date End Date [facility] MD [facility] [address] PCP - General Family Medicine 01/03/23 documented as of this encounter
--- OUTSIDE RECORDS SUMMARY | 2023-09-02 22:18 | External Medical Summary | Summary of Care ---
Author Name Unknown Organization [facility] Address [address] [place] [address] Phone [phone] Care Team Providers Care School Traffic Supervisor Name Role Phone Keisha Grossman MD Primary Care Provider [phone] Reason for Visit * Reason Comments Mohs Surgery * Evaluate & Treat - Unlimited Visits (Within 30 days (routine)) - Pending Review Specialty Diagnoses / Procedures Referred By Contmigel t Referred To Contact Dermatology Diagnoses Skin tumor Patricia Kirkpatrick MD [address] [place] [address] Referral ID Status Reason Start Date Expiration Date Visits Requested Visits Authorized [id number] Pending Review Specialty Services Required 3 1 1 Encounter Details Date Type Department Care Team ([facility] st Contact Info) Description 03/12/2023 7:45 AM EST Office Visit MOHS Surgery [facility] [address] [place] [address] Sharif Martinez MD [address] [place] [phone] 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 On Keytruda infusions in [place] Other melanoma History: Location: L preauricular Year: 2009 Depth: Lentigo Maligna Treatment: Slow Mohs Staging: Stage 0 - OsbA3F2 - Melanoma in situ Location: Left vertex scalp Year: 2013 Depth: 0.7mm (at least) Treatment: Mohs ([facility] with Dr David Arias). SLN biopsy (SLN inconclusive, Do not see path report) Staging: Stage IA - I1xN6M2 - < 0.8 mm without ulceration DDD [...] as of this encounter (statuses as of 03/12/2023) Resolved Problems Problem Noted Date Diagnosed Date [...] as of this encounter (statuses as of 03/12/2023) Immunizations Name Administration Dates Next Due COVID-19 [...] collected), PET (negative). Hx Keytruda infusions in [place], stopped in July b/ of worsening MSK symptoms Other melanoma History: Location: L preauricular Year: 2009 Depth: Lentigo Maligna Treatment: Slow Mohs Staging: Stage 0 - IxvT7U0 - Melanoma in situ Location: Left vertex scalp Year: 2013 Depth: 0.7mm (at least) Treatment: Mohs ([facility] with Dr David Arias). SLN biopsy (SLN inconclusive, Do not see path report) Staging: Stage IA - G5vE7G4 - < 0.8 mm without ulceration Additional [...] documented in this encounter Nursing Notes * Jasen OneliaCESAR - 03/12/2023 8:56 AM EST Chief Complaint Patient presents with Mohs Surgery Referral Doctor: Kaya Hypertension History: No Diabetes History: No Thyroid History: No Bleeding Tendency: No Artificial Valve or Joint: No Pacemaker: no Defibrillator: no Hepatitis/HIV Exposure: No Smoking: no Consent signed yes documented in this encounter Miscellaneous Notes * Letters - Sharif Martinez MD - 03/12/2023 12:00 PM EST Department of Dermatology [facility] [address] [facility] [place] [address] Dewey Martinez M.D. 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 This tumor required 1 stage for complete removal. The surgical wound was repaired with a rhombic transposition flap. Thanks again for referring your patient to our office. Yours Dewey phillips M.D. documented in this encounter Plan of Treatment Upcoming Encounters Date Type Department Care Team (Latest Contact Info) Description 03/22/2023 1:45 PM EST Office Visit Hematology/Oncology [facility] Monisha [place] 200 [facility] [place] [address] Herberth Ndiaye MD 200 [facility] [place] [address] 06/11/2023 8:30 AM EDT Hospital Encounter ENDO [facility], Endoscopy Room [facility] [address] [place] [address] María Elena Stafford DO [address] [place] [address] 06/11/2023 8:30 AM EDT - 06/11/2023 9:00 AM EDT Surgery ENDO [facility], Endoscopy Room [facility] [address] [place] [address] María Elena Stafford DO [address] [place] [address] COLONOSCOPY FLEXIBLE PROXIMAL DIAGNOSTIC 07/04/2023 7:40 AM EDT Office Visit Family Practice [facility] [place] 200 [facility] [place] [address] Keisha Grossman MD 200 [facility] [place] [address] 12/12/2023 4:00 PM EDT Office Visit Dermatology [facility] [place] 200 [facility] [place] [address] Kim Schultz MD 200 [facility] [place] [address] 12/23/2023 9:00 AM EST Nurse Only Ancillary [facility] [place] 200 [facility] [place] [address] Im, Nurse Annual Wellness [facility] 200 [facility] [place] [address] Pending Results Name Type Priority Associated Diagnoses Date /Time SURGICAL PATHOLOGY Pathology Routine 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 5 / [id number] / [id number] Clip Quick 2.8mm 230cm - [id number] Implanted:Qty: 4 on 04/20/2019 by Janine Moody MD at ENDOSCOPY [facility] [employer] HX-202UR. A / / Woundmatrix Fenstr 7x10cm (70 Units) - [id number] - [id number] Implanted:Qty: 1 on 03/14/2022 by Merna Baird MD [place] [facility] Right: Head [employer] [id number] 08/18/2023 [id number] / [id number] / [id number] documented as of this encounter Visit Diagnoses [...] and were consensually agreed upon. Care Teams School Traffic Supervisor Relationship Specialty Start Date End Date Keisha Grossman MD 200 [facility] [place] [address] PCP - General Family Medicine 01/03/23 documented as of this encounter
--- OUTSIDE RECORDS SUMMARY | 2023-09-02 22:18 | External Medical Summary ---
Author Name Unknown Address Unknown Organization K09:[facility] [place] [address] Laboratory Report Ordering Provider Test Date Status SADA GALLAGHER 04/22/2023 13:22:26 Final Observation Date Value Abnormality Reference (Units ) Status SYNC LEUKOCYTES IN BLOOD BY AUTOMATED COUNT 04/22/2023 13:22:26 7.69 4.00-10.80 (K/uL) Final Segs 04/22/2023 13:22:26 74.6 40.0-75.0 (%) Final Lymphs % 04/22/2023 13:22:26 20.4 18.0-42.0 (%) Final Monos 04/22/2023 13:22:26 4.0 1.0-11.0 (%) Final Eosinophils 04/22/2023 13:22:26 0.7 0.0-6.0 (%) Final Basos 04/22/2023 13:22:26 0.3 0.0-2.0 (%) Final Absolute Segs 04/22/2023 13:22:26 5.74 1.80-7.70 (K/uL) Final Lymphs, absolute 04/22/2023 13:22:26 1.57 1.00-4.80 (K/ul) Final Monos, Abs 04/22/2023 13:22:26 0.31 0.00-1.10 (K/uL) Final Eos, Abs 04/22/2023 13:22:26 0.05 0.00-0.70 (K/uL) Final Basos, Abs 04/22/2023 13:22:26 0.02 0.00-0.20 (K/uL) Final Performing Location [facility] [address]
--- OUTSIDE RECORDS SUMMARY | 2023-09-02 22:18 | External Medical Summary | Summary of Care ---
Author Name Unknown Organization [facility] Address [address] [place] [address] Phone [phone] Care Team Providers Care Project Control Manager Name Role Phone Keisha Grossman MD Primary Care Provider [phone] Encounter Details Date Type Department Care Team ([facility] st Contact Info) Description 03/19/2023 11:45 AM EST Office Visit [facility] Surgery [facility] [address] [place] [address] Sharif Martinez MD [address] [place] [address] Encounter for removal of sutures* Allergies Active Allergy Reactions Criticality Noted Date Comments Environmental 07/07/2007 [place] pollen documented as of this encounter (statuses as of 03/19/2023) Medications Medication Sig Dispensed Refills Start Date [...] as of this encounter (statuses as of 03/19/2023) Active Problems Problem Noted Date Diagnosed Date [...] collected), PET (negative). On Keytruda infusions in [place] Other melanoma History: Location: L preauricular Year: 2009 Depth: Lentigo Maligna Treatment: Slow Mohs Staging: Stage 0 - [id number] - Melanoma in situ Location: Left vertex scalp Year: 2013 Depth: 0.7mm (at least) Treatment: Mohs ([facility] with Dr David Arias). SLN biopsy (SLN inconclusive, Do not see path report) Staging: Stage IA - [id number] - < 0.8 mm without ulceration DDD [...] as of this encounter (statuses as of 03/19/2023) Resolved Problems Problem Noted Date Diagnosed Date Resolved Date Closed fracture of manubrium with routine healing 11/29/2015 03/21/2018 Overview: 12/03 Bilateral hand pain 03/03/2014 09/19/19 19 History of malignant melanoma of skin 01/01/2011 11/29/2015 Overview: Treated--[facility] surgery. 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 documented as of this encounter (statuses as of 03/19/2023) Immunizations Name Administration Dates Next Due COVID-19 [...] as of this encounter Progress Notes * Sharif Martinez MD - 03/19/2023 11:56 AM EST Patient returns 1 week after Mohs for recheck on healing. Has some numbness and fullness in the ear. Not having any pain. Exam: Limited examination preformed today to left preauricular area. Flap is well healed.. Plan: Sutures removed Wound care discussed Numbness should improve with time-- some may be permanent Call with problems Dewey Martinez MD documented in this encounter Plan of Treatment Upcoming Encounters Date Type Department Care Team (Latest Contact Info) Description 03/22/2023 1:45 PM EST Office Visit Hematology/On[facility] [address] [place] [address] Herberth Ndiaye MD [address] [place] [address] [address] 06/11/2023 8:30 AM EDT Hospital Encounter [facility] End[facility] [address] [place] [phone] María Elena Stafford DO [address] [place] [address] 06/11/2023 8:30 AM EDT - 06/11/2023 9:00 AM EDT Surgery ENDO [facility], Endoscopy Room [facility] [address] [place] [phone] María Elena Stafford DO [address] [place] [address] COLONOSCOPY FLEXIBLE PROXIMAL DIAGNOSTIC 06/21/2023 1:00 PM EDT Office Visit Dermatology [facility] [address] [place] [address] David Castillo MD [address] [facility] [place] [address] 07/04/2023 7:40 AM EDT Office Visit Family Practice [facility] [address] [place] [address] Keisha Grossman MD 200 [facility] [place] [address] 12/12/2023 4:00 PM EDT Office Visit Dermatology [facility] [address] [place] [address] Kim Schultz MD 200 [facility] [place] [address] 12/23/2023 9:00 AM EST Nurse Only Ancillary [facility] [address] [place] [address] Im, Nurse Annual Wellness [facility] [address] [place] [address] Scheduled Procedures Name Priority Associated Diagnoses Date/Ti [...] this encounter Medical Devices Implanted Type Area Disbursement Clerk Device Identifier Shelf Expiration Date Model / Serial / Lot Lens 13.5 Sn60wf - [id number] Implanted:Qty: 1 on 12/16/2013 at OR [facility] Left: Eye [employer] 01/17/2018 SN60WF.13 5 / [id number] / Lens 13.5 M160l - [id number] - [id number] Implanted:Qty: 1 on 07/28/2015 by Camacho Murphy MD at OR [facility] Right: Eye [employer] : SURGICAL 04/17/2016 [id number]. [id number] / [id number] / [id number] Clip Quick 2.8mm 230cm - [id number] Implanted:Qty: 4 on 04/20/2019 by Janine Moody MD at ENDOSCOPY [facility] [employer] [id number]. [id number] / / Woundmatrix Fenstr 7x10cm (70 Units) - [id number] - [id number] Implanted:Qty: 1 on 03/14/2022 by Merna Baird MD [place] [facility] Right: Head [employer] [id number] 08/18/2023 [id number] / [id number] / [id number] documented as of this encounter Visit Diagnoses Diagnosis Encounter for removal of sutures- Primary History of colon polyps Personal history [...] and were consensually agreed upon. Care Teams Project Control Manager Relationship Specialty Start Date End Date Keisha Grossman MD [address] [facility] [place] [address] PCP - General Family Medicine 01/03/23 documented as of this encounter
[2023-09-03 00:18] LABS: ANTI-Xa, UFH(UnfractionatedHep 0.87 IU/ml (0.3-0.7)
[2023-09-03] MEDS: ACETAMINOPHEN 325 MG TAB ONE (00:26)
[2023-09-03] MEDS: ACETAMINOPHEN 325 MG TAB PO PRN (00:27)
[2023-09-03 08:25] LABS: ANTI-Xa, UFH(UnfractionatedHep 0.79 IU/ml (0.3-0.7)
[2023-09-03 09:24] LABS: Hematocrit (blood only) 36.3 % (42.0-52.0); Hemoglobin 12.4 g/dl (14.0-18.0); Mean Corpuscular Hemoglobin 29.9 pg (25.0-34.0); Mean Corpuscular Hgb Conc 34.2 g/dL (32.0-36.0); Mean Corpuscular Volume 87.5 fL (80.0-100.0); Mean Platelet Volume 9.6 fL (9.4-12.4); Platelet Count 294 K/uL (130-400); RDW Coefficient of Variation 12.2 % (11.5-14.5); RDW Standard Deviation 39.3 fL (36.4-46.3); Red Blood Count 4.15 M/uL (4.70-6.10); White Blood Count 4.51 K/ul (4.8-10.8)
[2023-09-03] MEDS: TAMSULOSIN HCL 0.4 MG CAP PO SCH (09:35)
[2023-09-03] MEDS: ROSUVASTATIN CALCIUM 10 MG TAB PO SCH (09:35)
--- NOTE | 2023-09-03 10:57 | Electrocardiogram Report ---
Test Reason : Blood Pressure : / mmHG Vent. Rate : 083 BPM Atrial Rate : 083 BPM P-R Int : 192 ms QRS Dur : 080 ms QT Int : 362 ms P-R-T Axes : 063 036 047 degrees QTc Int : 425 ms Normal sinus rhythm Normal ECG When compared with ECG of 28-NOV-2015 12:56, No significant change was found Confirmed by Camacho Gudino ([id number]) on 09/03/2023 10:56:55 AM Referred By: REFERRED SELF Confirmed By:Camacho Gudino
--- NOTE | 2023-09-03 14:01 | Pulmonary Consultation ---
Date of Consultation September 03, 2023 Assessment & Plan (1) Pulmonary emboli: Patient was seen in [place] for an acute pulmonary embolism and treated with Eliquis. He now presents with shortness of breath and chest discomfort. CT chest completed here revealed extensive right-sided pulmonary embolism. Unclear whether there has been progression of disease burden or not as I do not have the prior images or report to review. Nonetheless, I am transitioning the patient to warfarin. Daily INRs have been ordered. He could be on a Lovenox and warfarin bridge and ultimately discharged home as he is relatively asymptomatic. Recommend following up echo results and consider repeat echo in 3 months to screen for pulmonary hypertension. Recommend repeating a CT chest with contrast to rule out PE in 3 months and then consider transitioning back to Eliquis with the input of his oncologist (Dr. Herberth Ndiaye) who sees him for melanoma. Would also recommend sending for genetic studies such as prothrombin gene mutation and factor V Leiden mutation to evaluate for hypercoagulable state. He does have a history of melanoma which appears to be in remission. His PE may have been provoked from his extensive travel recently. Patient counseled on avoiding lifting heavy objects, changes in barometric pressure or significant exertion over the next 6 to 8 weeks. Acute cor pulmonale presence: unspecified Chronicity: acute Pulmonary embolism type: unspecified Qualified Code(s): I26.99 - Other pulmonary embolism without acute cor pulmonale (2) Pulmonary infarct: Self-limiting and usually resolves without further intervention. Recommend follow-up CT in 3 months as noted above. Plan No further recommendations at this time. Please call with questions. Thank you for the consult. History of Present Illness Reason for Consultation: Pulmonary embolism Attending Physician: Sanchez Fraga MD History of Present Illness 78-year-old male with a history of inflammatory polyarthropathy, GERD, malignant melanoma status post excision and brief trial of Keytruda (which had to be discontinued due to flaring his polyarthropathy), dyslipidemia and allergic rhinitis who presented to the hospital due to ongoing shortness of breath and chest discomfort. He notes he has symptoms of pleurisy when taking a deep breath. He also describes having trouble getting a deep breath in. He notes that he traveled extensively over the past 3 months to [place], [place] and then to [place]. On August 21 in [place] he was diagnosed with an acute pulmonary embolism and sent home on Eliquis. On CT scan imaging yesterday he had extensive right-sided subsegmental and segmental pulmonary emboli with no right pleural effusion and nonspecific interstitial opacities. Patient notes echocardiogram was performed today but not yet interpreted. He is currently on a heparin infusion. Allergies Allergy/AdvReac Type Severity Reaction Status Date / Time No Known Allergies Allergy Unverified 09/02/23 16:29 Home Medications Medication Instructions Recorded Confirmed Type acetaminophen 500 mg tablet 500 mg PO Q6H PRN Pain/Fever 09/02/23 09/02/23 His tory apixaban 5 mg tablet (Eliquis) 5 mg PO BID 09/02/23 09/02/23 History celecoxib 200 mg capsule 200 mg PO DAILY 09/02/23 09/02/23 History pseudoephedrine-ibuprofen 30 1 tab PO Q4H PRN Sick 09/02/23 09/02/23 History mg-200 mg tablet rosuvastatin 10 mg tablet 10 mg PO QAM 09/02/23 09/02/23 History tamsulosin 0.4 mg capsule 0.4 mg PO DAILY 09/02/23 09/02/23 History Patient History Medical History Basal cell carcinoma of skin Melanoma s/p resection, Keytruda 06/10-09/09 Surgical History (Updated 09/02/23 @ 16:54 by Sherly Cutler PA-C) History of inguinal hernia repair History of cataract surgery History of melanoma excision Family History (Updated 09/02/23 @ 16:54 by Sherly Cutler PA-C) Other Cancer Diabetes Stroke Denies family history of Clotting disorder Social History Smoking Status: Never smoker Hx Alcohol Use: No Hx Substance Use: No Preferred Language: Bahamian Communication Ability: Effective Feels Safe at Home: Yes Assistive Devices: None Review of Systems Review of Systems: All systems reviewed & are unremarkable except as noted in HPI & below Physical Exam Physical Exam: Constitutional: Patient appears to be of their stated age. Patient is in no apparent distress. Patient is well-developed. Eyes: Pupils are equal round and reactive to light. Conjunctivae are normal. Anicteric sclera. Ears nose, mouth and throat: No perioral cyanosis Neck: Trachea is midline. Visual inspection is normal. Respiratory: Clear to auscultation bilaterally. No use of accessory muscles. No significant clubbing noted. Cardiovascular: Regular rate and rhythm. No murmurs. No edema. Gastrointestinal: Normal bowel sounds, soft, nontender and nondistended. No hepatosplenomegaly noted. Musculoskeletal: No cyanosis. Patient is able to move all extremities. Strength is 5 out of 5 in the upper and lower extremities. Skin: No rashes, warm dry and intact. Neurologic: No obvious focal neurological deficits seen. Psychiatric: Alert and oriented x3 with a euthymic affect. Results & Data Results & Data Vital Signs (Past 12 Hours) Vital Signs Temp Pulse Pulse Resp BP BP Pulse Ox 09/03/23 10:42 36.8 C 65 16 128/76 95 09/03/23 09:00 09/03/23 08:00 62 09/03/23 07:36 36.6 C 60 16 119/73 96 09/03/23 03:16 36.7 C 66 18 138/85 94 O2 Del Method 09/03/23 10:42 Room Air 09/03/23 09:00 Room Air 09/03/23 08:00 09/03/23 07:36 Room Air 09/03/23 03:16 Room Air PG Care Time/CCT Total # of Minutes Spent Total Time Spent with Patient: Total time spent is greater than 50% in coordination of care (as documented) at patient's floor/unit and/or counseling patient: Coding Level of Care Code 09398 INT INP/OBS CARE 2/55MIN Diagnoses Pulmonary emboli I26.99 Acute cor pulmonale presence: unspecified Chronicity: acute Pulmonary embolism type: unspecified Pulmonary infarct I26.99
[2023-09-03 15:39] LABS: ANTI-Xa, UFH(UnfractionatedHep 0.61 IU/ml (0.3-0.7)
--- NOTE | 2023-09-03 16:36 | Hospitalist Progress Note ---
Date of Service September 03, 2023 Assessment & Plan (1) Pulmonary embolism and infarction: Plan: Patient is a 78 y/o male with history of inflammatory polyarthritis, GERD, BPH, malignant melanoma s/p Keytruda, dyslipidemia, and other history as outlined below who presents to the ED with worsening right chest pain in the setting of recently diagnosed PE. He was started on Eliquis when he was diagnosed with right-sided PE on 08/22/23. However, since starting this medication, he has not noted significant improvement but rather is now worsening over the last 2-3 days with increasing pain, cough, and subjective fever. Work-up in the ED reveals progression of clot with new pulmonary infarct. Pulmonary infarct Extensive subacute Pulmonary embolism Likely provoked due to recent travel in setting of melanoma --CTA:Several lobar and segmental right-sided pulmonary emboli. 2.9 cm subpleural right lower lobe opacity consistent with a pulmonary infarct. Small right pleural effusion. Subpleural 2.3 cm right apical groundglass opacity could reflect an additional pulmonary infarct., A focus of pneumonia could appear similar. A follow-up chest CT in 3 months to ensure resolution is recommended. Several indeterminate subcentimeter left lower lobe pulmonary nodules measuring up to 7 mm. These are new since CT of November 28, 2015. These should be assessed on follow-up CT to ensure stability. --ECHO: Mild concentric LVH. No regional wall motion abnormality. EF 55 to 60%. Right ventricle is normal in size and function. Aortic valve sclerosis moderate, without significant stenosis. Pulmonary artery systolic pressure is estimated to be 37 mmHg. --Eliquis discontinued -- Continue IV heparin -- Started on Coumadin -- Monitor PT/INR Saturating well on room air Appreciate pulmonology input Will need repeat CT chest with contrast in 3 months Plan to transition Eliquis to Coumadin for at least 3 months and then to discuss with his oncologist for further recommendations Needs hypercoagulable workup as outpatient Parainfluenza infection--POA Incidental finding on [employer] Conservative management H/O malignant melanoma Was on Keytruda per patient Follows with oncology as outpatient (2) Inflammatory polyarthritis: Plan: Chronic, follows with rheumatology (3) Dyslipidemia: Plan: Continue statin (4) BPH (benign prostatic hyperplasia): Plan: Chronic, stable Continue tamsulosin Plan DVT Px: IV heparin and Coumadin Code status: Full code Admission and Anticipated Discharge Date Admission Date: September 02, 2023 Subjective Patient is seen and examined at bedside States having right-sided pleuritic pain Also reports minimal cough but no hemoptysis Currently on IV heparin Saturating well on room air Denies any significant dyspnea at rest No other complaints Review of Systems Review of Systems: All systems reviewed & are unremarkable except as noted in Subjective Physical Exam Physical Exam: Physical Exam: Vitals signs as noted above General Appearance:Moderately built and nourished, no apparent distress Head: normocephalic, Atraumatic Eyes: normal inspection, EOMI Neck: supple, Trachea midline Respiratory/Chest: Normal breath sounds, CTA, No accessory muscle use Cardiovascular: S1, S2, No murmur Abdomen/GI:Soft, Non tender, Bowel sounds present Extremities/Musculoskeletal:normal inspection, no edema Neurologic/Psych:AAOX3, grossly no focal neurological deficits Skin: normal color, warm Results & Data Results & Data Vital Signs (Past 12 Hours) Vital Signs Temp Pulse Pulse Resp BP BP Pulse Ox 09/03/23 14:52 74 09/03/23 14:39 36.8 C 66 18 127/78 94 09/03/23 10:42 36.8 C 65 16 128/76 95 09/03/23 09:00 09/03/23 08:00 62 09/03/23 07:36 36.6 C 60 16 119/73 96 O2 Del Method 09/03/23 14:52 09/03/23 14:39 Room Air 09/03/23 10:42 Room Air 09/03/23 09:00 Room Air 09/03/23 08:00 09/03/23 07:36 Room Air Laboratory Results Short CBC 09/03/23 Range/Units 07:40 WBC 4.51 L (4.8-10.8) K/ul Hgb 12.4 L (14.0-18.0) g/dl Hct 36.3 L (42.0-52.0) % Plt Count 294 (130-400) K/uL (4) BPH (benign prostatic hyperplasia) Lower urinary tract symptom presence: unspecified whether lower urinary tract symptoms present Qualified Code(s): N40.0 - Benign prostatic hyperplasia without lower urinary tract symptoms
[2023-09-03] MEDS: WARFARIN SOD 7.5 MG TAB PO SCH (16:40)
[2023-09-03] MEDS ORDERED: levoFLOXacin/D5W 500 MG/100 ML BAG IV SCH (18:00)
[2023-09-03] MEDS: oxyCODONE HCL IR 5 MG TAB (IMMEDIATE RELEASE) PO PRN (20:06)
[2023-09-04 06:30] LABS: Hematocrit (blood only) 35.8 % (42.0-52.0); Hemoglobin 12.1 g/dl (14.0-18.0); Mean Corpuscular Hemoglobin 29.4 pg (25.0-34.0); Mean Corpuscular Hgb Conc 33.8 g/dL (32.0-36.0); Mean Corpuscular Volume 86.9 fL (80.0-100.0); Mean Platelet Volume 9.5 fL (9.4-12.4); Platelet Count 303 K/uL (130-400); RDW Coefficient of Variation 11.9 % (11.5-14.5); Red Blood Count 4.12 M/uL (4.70-6.10); White Blood Count 5.31 K/ul (4.8-10.8)
[2023-09-04 06:43] LABS: BUN Creatinine Ratio 23.1 (10-20); Calcium 8.8 mg/dl (8.6-10.3); Creatinine Clr Calc Pharmacy 80.2 ml/min; Est GFR (African American) 94.5 ml/min; Est GFR (Non-African American) 81.6 ml/min; Potassium 3.8 mmol/L (3.5-5.1)
[2023-09-04 06:52] LABS: ANTI-Xa, UFH(UnfractionatedHep 0.52 IU/ml (0.3-0.7); INR 1.1 (0.9-1.1); Prothrombin Time 12.2 Seconds (9.0-12.0)
[2023-09-04] MEDS ORDERED: ENOXAPARIN 1 MG/KG SQ SCH (08:00)
[2023-09-04] MEDS: ENOXAPARIN 100 MG/1ML SYR SQ SCH (08:54)
--- NOTE | 2023-09-04 16:39 | Hospitalist Progress Note ---
Date of Service September 04, 2023 Assessment & Plan (1) Pulmonary embolism and infarction: Plan: Patient is a 78 y/o male with history of inflammatory polyarthritis, GERD, BPH, malignant melanoma s/p Keytruda, dyslipidemia, and other history as outlined below who presents to the ED with worsening right chest pain in the setting of recently diagnosed PE. He was started on Eliquis when he was diagnosed with right-sided PE on 08/22/23. However, since starting this medication, he has not noted significant improvement but rather is now worsening over the last 2-3 days with increasing pain, cough, and subjective fever. Pulmonary infarct Extensive subacute Pulmonary embolism Likely provoked due to recent travel Patient was diagnosed with right-sided PE in [place] in August 22, 2023. He was placed on Eliquis at that time. He presented here with increasing pain and cough --CTA:Several lobar and segmental right-sided pulmonary emboli. 2.9 cm subpleural right lower lobe opacity consistent with a pulmonary infarct. Small right pleural effusion. Subpleural 2.3 cm right apical groundglass opacity could reflect an additional pulmonary infarct., A focus of pneumonia could appear similar. A follow-up chest CT in 3 months to ensure resolution is recommended. Several indeterminate subcentimeter left lower lobe pulmonary nodules measuring up to 7 mm. These are new since CT of November 28, 2015. These should be assessed on follow-up CT to ensure stability. --ECHO: Mild concentric LVH. No regional wall motion abnormality. EF 55 to 60%. Right ventricle is normal in size and function. Aortic valve sclerosis moderate, without significant stenosis. Pulmonary artery systolic pressure is estimated to be 37 mmHg. --Eliquis discontinued Pulmonology was consulted; patient is started on Lovenox and Coumadin bridge. Will need follow-up with hemato- oncology PT/INR daily Will need repeat CT chest with contrast in 3 months Needs hypercoagulable workup as outpatient Parainfluenza infection--POA Incidental finding on [employer] Conservative management H/O malignant melanoma Was on Keytruda per patient Follows with oncology as outpatient (2) Inflammatory polyarthritis: Plan: Chronic, follows with rheumatology (3) Dyslipidemia: Plan: Continue statin (4) BPH (benign prostatic hyperplasia): Plan: Chronic, stable Continue tamsulosin Plan DVT Px: loevnox and Coumadin Code status: Full code Discussed with patient's at bedside Time spent evaluating patient, direct bedside care, chart review, placing orders, interpretation of diagnostic studies, discussion with consultants, patient, and family members, as well as other required patient management activities is 50 minutes Please note the above document was generated using voice recognition software. It may contain grammatical, syntax or spelling errors. Any formal questions or concerns about the content, text or information contained within the body of this dictation should be directly addressed to the provider for clarification Admission and Anticipated Discharge Date Admission Date: September 02, 2023 Subjective Patient seen and examined at bedside. He reports a pleuritic chest pain; denies any increasing shortness of breath. No significant events overnight Review of Systems Review of Systems: All systems reviewed & are unremarkable except as noted in Subjective Physical Exam Physical Exam: Constitutional: WD/WN, vitals as above, NAD, sitting up in bed, pleasant, conversing easily Respiratory: normal respiratory effort, lungs clear to auscultation, no wheeze, rales, rhonchi. Normal insp/exp effort, no accessory muscle use Cardiovascular: RRR, no murmur, no edema Vessels: no JVD or carotid bruit Chest: normal inspection of chest Abdomen: normal bowel sounds, soft, nontender, no hepatosplenomegaly Musculoskeletal: no cyanosis or clubbing, extremities motor strength 5/5 Skin: no rashes, warm and dry normal turgor Neurologic: PERRL, EOMI, accommodation nl, no face palsy, no dysarthria CN's II- XI intact bilaterally and moves all extremities Psychiatric: A+Ox3, euthymic affect Results & Data Results & Data Vital Signs (Past 12 Hours) Vital Signs Temp Pulse Pulse Resp BP Pulse Ox O2 Del Method 09/04/23 15:00 36.7 C 72 18 111/71 96 Room Air 09/04/23 14:57 36.7 C 72 19 111/71 96 Room Air 09/04/23 14:08 63 09/04/23 10:43 36.8 C 70 18 107/68 95 Room Air 09/04/23 09:10 59 L 09/04/23 07:50 36.6 C 69 16 124/75 95 Room Air (4) BPH (benign prostatic hyperplasia) Lower urinary tract symptom presence: unspecified whether lower urinary tract symptoms present Qualified Code(s): N40.0 - Benign prostatic hyperplasia without lower urinary tract symptoms
[2023-09-05 05:27] LABS: Basophils # (auto) 0.05 K/uL (0.00-0.20); Basophils % (auto) 0.9 %; Eosinophils # (auto) 0.58 K/uL (0.00-0.50); Eosinophils % (auto) 10.4 %; Hematocrit (blood only) 36.1 % (42.0-52.0); Hemoglobin 12.2 g/dl (14.0-18.0); Immature Granulocytes # (auto) 0.03 K/uL (0.01-0.20); Immature Granulocytes % (auto) 0.5 %; Lymphocytes # (auto) 2.06 K/uL (1.20-3.40); Lymphocytes % (auto) 36.8 %; Mean Corpuscular Hemoglobin 29.7 pg (25.0-34.0); Mean Corpuscular Hgb Conc 33.8 g/dL (32.0-36.0); Mean Corpuscular Volume 87.8 fL (80.0-100.0); Mean Platelet Volume 9.6 fL (9.4-12.4); Monocytes # (auto) 0.47 K/uL (0.11-0.59); Monocytes % (auto) 8.4 %; Neutrophils # (auto) 2.41 K/uL (1.40-6.50); Platelet Count 317 K/uL (130-400); RDW Coefficient of Variation 11.9 % (11.5-14.5); RDW Standard Deviation 38.4 fL (36.4-46.3); Red Blood Count 4.11 M/uL (4.70-6.10)
[2023-09-05 05:35] LABS: INR 1.4 (0.9-1.1); Prothrombin Time 14.6 Seconds (9.0-12.0)
--- NOTE | 2023-09-05 16:47 | Hospitalist Progress Note ---
Date of Service September 05, 2023 Assessment & Plan (1) Pulmonary embolism and infarction: Plan: Patient is a 78 y/o male with history of inflammatory polyarthritis, GERD, BPH, malignant melanoma s/p Keytruda, dyslipidemia, and other history as outlined below who presents to the ED with worsening right chest pain in the setting of recently diagnosed PE. He was started on Eliquis when he was diagnosed with right-sided PE on 08/22/23. However, since starting this medication, he has not noted significant improvement but rather is now worsening over the last 2-3 days with increasing pain, cough, and subjective fever. Pulmonary infarct Extensive subacute Pulmonary embolism Likely provoked due to recent travel Patient was diagnosed with right-sided PE in [place] in August 22, 2023. He was placed on Eliquis at that time. He presented here with increasing pain and cough --CTA:Several lobar and segmental right-sided pulmonary emboli. 2.9 cm subpleural right lower lobe opacity consistent with a pulmonary infarct. Small right pleural effusion. Subpleural 2.3 cm right apical groundglass opacity could reflect an additional pulmonary infarct., A focus of pneumonia could appear similar. A follow-up chest CT in 3 months to ensure resolution is recommended. Several indeterminate subcentimeter left lower lobe pulmonary nodules measuring up to 7 mm. These are new since CT of November 28, 2015. These should be assessed on follow-up CT to ensure stability. --ECHO: Mild concentric LVH. No regional wall motion abnormality. EF 55 to 60%. Right ventricle is normal in size and function. Aortic valve sclerosis moderate, without significant stenosis. Pulmonary artery systolic pressure is estimated to be 37 mmHg. --Eliquis discontinued Pulmonology was consulted; patient is started on Lovenox and Coumadin bridge. Will need follow-up with hemato- oncology PT/INR daily Will need repeat CT chest with contrast in 3 months Needs hypercoagulable workup as outpatient Parainfluenza infection--POA Incidental finding on [employer] Conservative management H/O malignant melanoma Was on Keytruda per patient Follows with oncology as outpatient (2) Inflammatory polyarthritis: Plan: Chronic, follows with rheumatology (3) Dyslipidemia: Plan: Continue statin (4) BPH (benign prostatic hyperplasia): Plan: Chronic, stable Continue tamsulosin Plan DVT Px: loevnox and Coumadin Code status: Full code Discussed with patient's at bedside Please note the above document was generated using voice recognition software. It may contain grammatical, syntax or spelling errors. Any formal questions or concerns about the content, text or information contained within the body of this dictation should be directly addressed to the provider for clarification Admission and Anticipated Discharge Date Admission Date: September 02, 2023 Subjective Patient seen and examined at bedside. Comfortable; not in distress. Denies fever, chills, chest pain, shortness of breath, abdominal pain or urinary symptoms. No significant overnight events Review of Systems Review of Systems: All systems reviewed & are unremarkable except as noted in Subjective Physical Exam Physical Exam: Constitutional: WD/WN, vitals as above, NAD, sitting up in bed, pleasant, conversing easily Respiratory: normal respiratory effort, lungs clear to auscultation, no wheeze, rales, rhonchi. Normal insp/exp effort, no accessory muscle use Cardiovascular: RRR, no murmur, no edema Vessels: no JVD or carotid bruit Chest: normal inspection of chest Abdomen: normal bowel sounds, soft, nontender, no hepatosplenomegaly Musculoskeletal: no cyanosis or clubbing, extremities motor strength 5/5 Skin: no rashes, warm and dry normal turgor Neurologic: PERRL, EOMI, accommodation nl, no face palsy, no dysarthria CN's II- XI intact bilaterally and moves all extremities Psychiatric: A+Ox3, euthymic affect Results & Data Results & Data Vital Signs (Past 12 Hours) Vital Signs Temp Pulse Pulse Resp BP Pulse Ox O2 Del Method 09/05/23 16:00 67 09/05/23 14:46 36.5 C 66 18 123/73 96 Room Air 09/05/23 10:39 36.6 C 73 17 130/75 97 Room Air 09/05/23 07:45 36.5 C 67 18 120/67 96 Room Air 09/05/23 07:10 67 (4) BPH (benign prostatic hyperplasia) Lower urinary tract symptom presence: unspecified whether lower urinary tract symptoms present Qualified Code(s): N40.0 - Benign prostatic hyperplasia without lower urinary tract symptoms
[2023-09-05] MEDS: WARFARIN SOD 10 MG TAB PO SCH (17:22)
[2023-09-06 16:34] LABS: INR 2.4 (0.9-1.1); Partial Thromboplastin Ratio 1.5; Partial Thromboplastin Time 40 Seconds (21-31); Prothrombin Time 23.9 Seconds (9.0-12.0)
[2023-09-06 19:09] LABS: Albumin Globulin Ratio 1.2 (0.9-2); Albumin Level 3.5 gm/dl (3.4-5.0); BUN Creatinine Ratio 25.3 (10-20); Bilirubin,Total 0.5 mg/dl (0.2-1.0); Calcium 8.8 mg/dl (8.6-10.3); Creatinine Clr Calc Pharmacy 92.2 ml/min; Est GFR (African American) 101.1 ml/min; Est GFR (Non-African American) 87.2 ml/min; Globulin 2.9 gm/dl (2.5-4.0); Total Protein 6.4 gm/dl (6.0-8.3)
[2023-09-06 21:07] LABS: Hematocrit (blood only) 35.2 % (42.0-52.0); Hemoglobin 12.1 g/dl (14.0-18.0); Mean Corpuscular Hemoglobin 29.8 pg (25.0-34.0); Mean Corpuscular Hgb Conc 34.4 g/dL (32.0-36.0); Mean Corpuscular Volume 86.7 fL (80.0-100.0); Mean Platelet Volume 9.8 fL (9.4-12.4); Platelet Count 323 K/uL (130-400); RDW Coefficient of Variation 11.8 % (11.5-14.5); RDW Standard Deviation 38.3 fL (36.4-46.3); Red Blood Count 4.06 M/uL (4.70-6.10); White Blood Count 4.85 K/ul (4.8-10.8)
== END 2023-09-06 12:00 | disposition home or self-care (01) | DRG 175 ==
LOC: ED 13:11 → SUATTDRO 16:43 → EDINP 16:43 → 4W 09-03 01:05